=== PATIENT | female | born 1995 | race Caucasian/White ===

== ENCOUNTER → 2017-04-21 | Outpatient (CLI) | payer SELFPAY ==
[~2017-04-21] MED LIST: CEPH500C PO; HYDR-2856 PO; NORG1TAB15 PO
--- NOTE | 2017-04-22 23:14 | Diagnostic Imaging Report ---
PROCEDURE: US OB SINGLE FETUS <14 WKS. TECHNIQUE: Multiple real-time grayscale images were obtained over the gravid uterus in various projections. INDICATION: Vaginal bleeding, . Gestational age of 9 weeks 0 days by last menstrual period. COMPARISON: None. FINDINGS: There is a single live intrauterine gestation, with a heart rate of 172 bpm. A small subchorionic hemorrhage is seen, which measures approximately 20% of the gestational sac circumference, measuring 2.3 x 0.9 x 0.7 cm. The ovaries are not well seen due to bowel gas. The remainder of the uterus is unremarkable. The pole measures 1.85 cm, compatible with 8 weeks and 3 days gestation. The yolk sac is visible. IMPRESSION: 1. Single live intrauterine gestation with a heart rate of 172 bpm, measuring 8 weeks and 3 days. 2. Small subchorionic hemorrhage encompassing approximately 20% of the gestational sac circumference. Dictated by: Dictated on workstation # [id number]
== END ==
LOC: RAD 16:06
PROVIDERS: ATTEND Family Medicine
DX: O20.8 Other hemorrhage in early pregnancy (principal); Z3A.08 8 weeks gestation of pregnancy
CPT/HCPCS: 76801

== ENCOUNTER → 2017-05-25 | Outpatient (CLI) | payer MEDICAID ==
--- NOTE | 2017-05-25 15:07 | Diagnostic Imaging Report ---
PROCEDURE: US OB SINGLE FETUS <14 WKS. TECHNIQUE: Multiple real-time grayscale images were obtained over the gravid uterus in various projections. INDICATION: Bleeding. FINDINGS: The previous OB ultrasound exam performed on 04/21/2017 noted a single live fetus of approximately 8 weeks 3 days gestation, +/-1 week. On this exam, the fetus is again identified. heart motion was noted, and a rate of 155 BPM was recorded. The fetus is in variable presentation. There are no obvious abnormalities identified. The growth parameters have progressed as expected since the prior exam. The amniotic fluid volume is within normal limits. The placenta is anterior and low lying. The previous exam suggested that there was a small subchorionic hemorrhage. That finding is difficult to appreciate on this study. There is no pelvic mass or free fluid collection noted. The ovaries were not visualized. IMPRESSION: 1. There is a single live intrauterine of approximately 13 weeks 2 days gestation, +/-1 week. The EDC remains November 28, 2017. 2. There were no obvious abnormalities identified. If a more sensitive evaluation of the anatomy is desired, then a followup ultrasound exam in 6-8 weeks would be recommended. 3. The small subchronic hemorrhage seen previously is not visualized on this study. Dictated by: Dictated on workstation # [id number]
== END ==
LOC: RAD 14:28
PROVIDERS: ATTEND Family Medicine
DX: O46.91 Antepartum hemorrhage, unspecified, first trimester (principal); Z3A.13 13 weeks gestation of pregnancy
CPT/HCPCS: 76801

== ENCOUNTER → 2017-07-04 | Outpatient (CLI) | payer MEDICAID ==
[~2017-07-04] MED LIST changes: +ACHD5005 PO; +IBUP-1780 PO
--- NOTE | 2017-07-04 13:13 | Diagnostic Imaging Report ---
INDICATION: survey. TECHNIQUE: Multiple real-time grayscale images were obtained over the gravid uterus. COMPARISON: 05/25/2017. FINDINGS: There is an intrauterine fetus in a breech presentation. The placenta is anterior. Amniotic fluid volume appears diminished. No heart tones are identified consistent with intrauterine demise. Biparietal 3.07 cm, age 15 weeks 5 days. Head circumference 13.82 cm, age 17 weeks 2 days. Abdominal circumference 9.40 cm, age 15 weeks 4 days. Femur length 2.54 cm, age 17 weeks 5 days. Sonographic estimate age: 16 weeks 4 days. Sonographic estimated date of delivery: 11-28-17. Estimated Weight: 164 gm (+/- 24 gm). LMP percentile: 2%. heart rate: absent beats per minute. number: 1 of 1. IMPRESSION: Findings consistent with approximately 16-17 week demise. Dictated by: Dictated on workstation # [id number]
== END ==
LOC: RAD 10:15
PROVIDERS: ATTEND Family Medicine
DX: Z36.89 Encounter for other specified antenatal screening (principal); Z3A.16 16 weeks gestation of pregnancy
CPT/HCPCS: 76805

== ENCOUNTER 2017-07-05 07:12 | Day surgery (SDC) | payer MEDICAID ==
[~2017-07-05] VITALS: Ht 172.7 cm; Wt 66.2 kg
[2017-07-05] VITALS (45 sets, daily range): BP systolic 93–149; BP diastolic 51–108
[~2017-07-05 07:12] MED LIST changes: -ACHD5005 PO; -IBUP-1780 PO
[2017-07-05 08:55] LABS: BASOPHILS % (AUTO) 0 % (0-10); EOSINOPHILS # (AUTO) 0.2 10^3/uL (0.0-0.3); EOSINOPHILS % (AUTO) 1 % (0-10); HEMATOCRIT 39 % (35-52); HEMOGLOBIN 13.2 G/DL (11.5-16.0); LYMPHOCYTES # (AUTO) 3.2 X 10^3 (1.0-4.0); LYMPHOCYTES % (AUTO) 23 % (12-44); MEAN CORPUSCULAR HEMOGLOBIN 30 PG (25-34); MEAN CORPUSCULAR HGB CONC 34 G/DL (32-36); MEAN CORPUSCULAR VOLUME 89 FL (80-99); MEAN PLATELET VOLUME 9.3 FL (7.4-10.4); MONOCYTES # (AUTO) 0.9 X 10^3 (0.0-1.0); MONOCYTES % (AUTO) 7 % (0-12); NEUTROPHILS # (AUTO) 9.6 X 10^3 (1.8-7.8); NEUTROPHILS % (AUTO) 69 % (42-75); PLATELET COUNT 283 10^3/uL (130-400); RED BLOOD COUNT 4.36 10^6/uL (4.35-5.85); RED CELL DISTRIBUTION WIDTH 13.8 % (10.0-14.5); WHITE BLOOD COUNT 13.9 10^3/uL (4.3-11.0)
[2017-07-05] MEDS: D5 LR IV SOLUTION 1,000 ML IV SCH ×2 (08:59→17:00)
[2017-07-05] MEDS ORDERED: fentaNYL INJECTION 100 MCG/2 ML AMP IVP PRN (09:00)
[2017-07-05] MEDS: IBUPROFEN 800 MG (MOTRIN) TAB PO SCH ×2 (09:00→23:46)
[2017-07-05] MEDS: MISOPROSTOL 200 MCG (CYTOTEC) TABLET PV SCH ×3 (09:00→15:18)
[2017-07-05 09:34] LABS: AMPHETAMINE SCREEN, URINE NEGATIVE (NEGATIVE); BARBITURATE SCREEN URINE NEGATIVE (NEGATIVE); BENZODIAZEPINES SCREEN URINE POSITIVE (NEGATIVE); CANNABINOID SCREEN, URINE POSITIVE (NEGATIVE); COCAINE SCREEN URINE NEGATIVE (NEGATIVE); METHADONE STAT NEGATIVE (NEGATIVE); METHAMPHETAMINE SCREEN URINE S NEGATIVE (NEGATIVE); OPIATE SCREEN URINE POSITIVE (NEGATIVE); OXYCODONE STAT NEGATIVE (NEGATIVE); PROPOXYPHENE STAT NEGATIVE (NEGATIVE); TRICYCLIC ANTIDEPRESSANTS SCRE NEGATIVE (NEGATIVE)
[2017-07-05] MEDS ORDERED: fentaNYL INJECTION 100 MCG/2 ML AMP ONE (09:41)
[2017-07-05] MEDS ORDERED: BUPIVACAINE 0.25% 30 ML (SENSORCAINE) VIAL ONE (09:41)
[2017-07-05] MEDS ORDERED: SUFENTA 0.6MCG/ML BUPIVA 0.125 100 ML ONE (09:42)
--- NOTE | 2017-07-05 09:59 | History & Physical-OB ---
OB - Chief Complaint & HPI Date/Time Date of Admission: Date of Admission: Jul 05, 2017 at 07:12 Chief Complaint/History Gestational Age in Weeks: 19 Allergies and Home Medications Allergies Coded Allergies: clonidine (Verified Allergy, Intermediate, 02/16/14) hypotension amoxicillin (Verified Allergy, Unknown, RASH, 07/05/17) Home Medications Cephalexin Monohydrate 500 Mg Capsule, 2 EACH PO BID for 7 Days, Ref 0 Prescribed by: RUKHSANA DUMONT on 02/16/142152 Hydroxyzine Hcl 25 Mg Tablet, 25 MG PO PRN, (Reported) Norgestimate-Ethinyl Estradiol 1 Each Tablet, 1 TAB PO DAILY, #28 (Reported) OB - History Delivery History Hx Blood Disorders: No Social History/Family History Recent Infectious Disease Expo: No OB - Admission Exam Labs Laboratory Tests Test 07/05/17 07:30 07/05/17 08:15 Range/Units Urine Opiates Screen POSITIVE H NEGATIVE Urine Oxycodone Screen NEGATIVE NEGATIVE Urine Methadone Screen NEGATIVE NEGATIVE Urine Propoxyphene Screen NEGATIVE NEGATIVE Urine Barbiturates Screen NEGATIVE NEGATIVE Ur Tricyclic Antidepressants Screen NEGATIVE NEGATIVE Urine Phencyclidine Screen NEGATIVE NEGATIVE Urine Amphetamines Screen NEGATIVE NEGATIVE Urine Methamphetamines Screen NEGATIVE NEGATIVE Urine Benzodiazepines Screen POSITIVE H NEGATIVE Urine Cocaine Screen NEGATIVE NEGATIVE Urine Cannabinoids Screen POSITIVE H NEGATIVE White Blood Count 13.9 H 4.3-11.0 10^3/uL Red Blood Count 4.36 4.35-5.85 10^6/uL Hemoglobin 13.2 11.5-16.0 G/DL Hematocrit 39 35-52 % Mean Corpuscular Volume 89 80-99 FL Mean Corpuscular Hemoglobin 30 25-34 PG Mean Corpuscular Hemoglobin Concent 34 32-36 G/DL Red Cell Distribution Width 13.8 10.0-14.5 % Platelet Count 283 130-400 10^3/uL Mean Platelet Volume 9.3 7.4-10.4 FL Neutrophils (%) (Auto) 69 42-75 % Lymphocytes (%) (Auto) 23 12-44 % Monocytes (%) (Auto) 7 0-12 % Eosinophils (%) (Auto) 1 0-10 % Basophils (%) (Auto) 0 0-10 % Neutrophils # (Auto) 9.6 H 1.8-7.8 X 10^3 Lymphocytes # (Auto) 3.2 1.0-4.0 X 10^3 Monocytes # (Auto) 0.9 0.0-1.0 X 10^3 Eosinophils # (Auto) 0.2 0.0-0.3 10^3/uL Basophils # (Auto) 0.0 0.0-0.1 10^3/uL EDGARDO PHAM MD Jul 05, 2017 09:59
[2017-07-05] MEDS ORDERED: INFLUENZA TRIvalent 2017-2018 0.5 ML/45 MCG SYR IM ONE (12:30)
[2017-07-05] MEDS ORDERED: LACTATED RINGERS 1,000 ML IV ONE (12:41)
[2017-07-05] MEDS ORDERED: diphenhydrAMINE 50 MG/ML INJ (BENADRYL) IV PRN (12:45)
[2017-07-05] MEDS ORDERED: NALOXONE 0.4 MG/ML 1 ML (NARCAN) VIAL IV PRN (12:45)
[2017-07-05] MEDS ORDERED: CATHETER FLUSH 10 ML SYR IV PRN (12:45)
[2017-07-05] MEDS ORDERED: ONDANSETRON 4 MG/2 ML (SDV) Z0FRAN IV PRN (12:45)
[2017-07-05] MEDS ORDERED: EPIDURAL (SUFENTA 0.6MCG/ML BUPIVA 0.125%) 100 ML BAG EPI SCH (12:45)
[2017-07-05] MEDS ORDERED: hydrOXYzine (VISTARIL) 25 MG CAP PO NR (14:15)
[2017-07-05] MEDS ORDERED: ERTAPENEM (NON-FORMULARY) 1,000 MG in NS (IVPB) 50 ML IV SCH (16:30)
[2017-07-05] MEDS ORDERED: ACETAMINOPHEN 500 MG TAB (TYLENOL) PO PRN (16:45)
[2017-07-05] MEDS ORDERED: OXYTOCIN/NORMAL SALINE 500 ML IV ONE (17:24)
[2017-07-05] MEDS ORDERED: KETOROLAC 30 MG/ML VIAL IVP ONE (17:30)
--- NOTE | 2017-07-05 19:04 | OB Labor & Delivery Record ---
Vag Delivery Note Vag Delivery Note Date of Delivery: 07/05/17 Preoperative Diagnosis: Ivone Cooper is a 21 /Para 1 / 0, Gestational Age 19 wks with an IUFD Postoperative Diagnosis: Same Surgeon: NTIIN BARCENAS Armhole Sewer: none Anesthesia: Epidural Delivery Type: Spontaneous Vaginal Delivery Findings: Nonviable male , IUFD, weight 310 grams/11 oz Lacerations: None Intact placenta with 3 vessel cord. No nuchal cord, body cord or shoulder dystocia Placenta inspected and appears to have an area of abruption where placenta had been detached from uterine wall; several blood clots were also noted to deliver with fetus. Estimated Blood Loss: 150 ml Complications: None Condition: Stable Description of Procedure: The patient is a 21 yr old who presented IUFD for induction of labor. She was admitted and informed consent was obtained. Her labor course was remarkable for maternal fever, Tmax was 101.8 -- blood cultures were obtained and she was started on Ertapenem, as the hospital does not have Cefoxitan or Cefotetan available and patient is allergic to amoxicillin and therefore not a candidate for traditional ampicillin and gentamycin therapy, for potential chorioamnionitis. The patient reported vaginal pressure, and she was found to be complete with bulging membranes. She was then set up for delivery. Amniotic sac was punctured and bloody amniotic fluid was obtained. Fetus was rapidly delivered in vertex presentation with a large blood clot noted with delivery. Fetus does appear somewhat edematous, although difficult to determine. No obvious anomalies other than some edema noted. Fetus placed on maternal chest as requested and cord double clamped and cut by father. Cord friable and some tearing of cord with gentle traction. Placenta delivered intact, and noted to have at least ~1/3 area of abruption. Cultures of both maternal and side of membranes were obtained and sent to lab. Placental section was obtained for cytogenetic studies, and will be held pending patient decision on whether or not she would like these studies. Placenta to pathology. Fetus weighed, measured, wrapped and handed to parents for holding. Given slightly edematous appearance of fetus, and evidence of abruption from a clinical standpoint, will have blood drawn in AM for typical IUFD lab studies, including TSH, CMV Titers, Parvovirus antibody, Lupus anticoagulant (patient's mother has lupus and a long history of loss) and anticardiolipin antibody, Factor V Leiden mutation, and CBC and CMP. It was discussed extensively with patient, significant other and their family members that we cannot always determine a cause of stillbirth, and that we will send these studies, but that results will likely not be available until after patient is discharged from the hospital for many of them, and Dr. Lewis will get results and follow up with her in the office on anything not resulted before she is discharged. Patient did admit to frequent THC use, which was positive on admission UDS; UDS was positive for benzos and opiates as well, which patient did not state she takes. Patient in stable condition in recovery. Vitals - Labs Vital Signs - I&O Vital Signs Date Time Temp Pulse Resp B/P (MAP) Pulse Ox O2 Delivery O2 Flow Rate FiO2 07/05/17 12:02 100.7 97 129/71 (90) 100 Room Air 07/05/17 11:47 96 124/73 (90) 100 Room Air 07/05/17 11:32 104 125/77 (93) 100 Room Air 07/05/17 11:17 98 118/74 (89) 100 Room Air 07/05/17 11:02 101 121/66 (84) 100 Room Air 07/05/17 10:47 104 18 124/77 (93) 100 Room Air 07/05/17 10:29 104 18 137/63 (87) 100 Room Air 07/05/17 10:23 109 18 140/63 (88) 100 Room Air 07/05/17 10:19 101 18 131/60 (83) 100 Room Air 07/05/17 10:07 99 18 125/67 (86) 100 Room Air 07/05/17 10:05 100 18 125/64 (84) 100 Room Air 07/05/17 10:01 97 18 131/71 (91) 100 Room Air 07/05/17 09:58 96 18 131/62 (85) 100 Room Air 07/05/17 09:55 98.7 110 18 145/69 (94) Room Air 07/05/17 09:53 109 18 149/60 (89) 97 Room Air Labs Laboratory Tests 07/05/17 07:30: Urine Opiates Screen POSITIVEH, Urine Oxycodone Screen NEGATIVE, Urine Methadone Screen NEGATIVE, Urine Propoxyphene Screen NEGATIVE, Urine Barbiturates Screen NEGATIVE, Ur Tricyclic Antidepressants Screen NEGATIVE, Urine Phencyclidine Screen NEGATIVE, Urine Amphetamines Screen NEGATIVE, Urine Methamphetamines Screen NEGATIVE, Urine Benzodiazepines Screen POSITIVEH, Urine Cocaine Screen NEGATIVE, Urine Cannabinoids Screen POSITIVEH 07/05/17 08:15: White Blood Count 13.9H, Red Blood Count 4.36, Hemoglobin 13.2, Hematocrit 39, Mean Corpuscular Volume 89, Mean Corpuscular Hemoglobin 30, Mean Corpuscular Hemoglobin Concent 34, Red Cell Distribution Width 13.8, Platelet Count 283, Mean Platelet Volume 9.3, Neutrophils (%) (Auto) 69, Lymphocytes (%) (Auto) 23, Monocytes (%) (Auto) 7, Eosinophils (%) (Auto) 1, Basophils (%) (Auto) 0, Neutrophils # (Auto) 9.6H, Lymphocytes # (Auto) 3.2, Monocytes # (Auto) 0.9, Eosinophils # (Auto) 0.2, Basophils # (Auto) 0.0 NITIN BARCENAS DO Jul 05, 2017 19:04
--- NOTE | 2017-07-05 19:05 | OB Labor & Delivery Record ---
L&D History Date of Service Date of Service: Jul 05, 2017 History Expected Date of Delivery: Nov 24, 2017 Gestational Age in Weeks: 19 Hx : 1 Hx Para: 0 Complications Events: Routine care IUFD identified at 19 4/7 wks gestation when patient went for routine anatomy scan. Operative Indications (Cesarea: N/A-Vaginal Delivery Intrapartal Events: Febrile (Tmax 101.8) L&D Stage1 Stage One Onset of Labor - Date: Jul 05, 2017 Onset of Labor - Time: 09:00 Duration - Stage I: 8 hr 5 min Monitors and Tracing Monitor Mode: None Presentation: Samy Breech Vital Signs VS - Last 72 Hours, by Label 07/05/17 07/05/17 07/05/17 07/05/17 09:53 09:55 09:58 10:01 Temp 98.7 Pulse 109 110 96 97 Resp 18 18 18 18 B/P (MAP) 149/60 (89) 145/69 (94) 131/62 (85) 131/71 (91) Pulse Ox 97 100 100 O2 Delivery Room Air Room Air Room Air Room Air 07/05/17 07/05/17 07/05/17 07/05/17 10:05 10:07 10:19 10:23 Pulse 100 99 101 109 Resp 18 18 18 18 B/P (MAP) 125/64 (84) 125/67 (86) 131/60 (83) 140/63 (88) Pulse Ox 100 100 100 100 O2 Delivery Room Air Room Air Room Air Room Air 07/05/17 07/05/17 07/05/17 07/05/17 10:29 10:47 11:02 11:17 Pulse 104 104 101 98 Resp 18 18 B/P (MAP) 137/63 (87) 124/77 (93) 121/66 (84) 118/74 (89) Pulse Ox 100 100 100 100 O2 Delivery Room Air Room Air Room Air Room Air 07/05/17 07/05/17 07/05/17 11:32 11:47 12:02 Temp 100.7 Pulse 104 96 97 B/P (MAP) 125/77 (93) 124/73 (90) 129/71 (90) Pulse Ox 100 100 100 O2 Delivery Room Air Room Air Room Air Rupture of Membranes Spontaneous Ruture of Membrane: No Amniotic Membrane Rupture Time: 17:47 Amniotic Membrane Fluid Desc.: Bloody Vaginal Bleeding Description: Normal Show Induction/Anesthesia Epidural Cath Placement - Time: 1001 L&D Stage2 Stage Two Stage II Date: Jul 05, 2017 Stage II Time: 17:05 Stage II Duration: 44 min Monitors and Tracing Monitor Mode: None Presentation: Samy Breech Delivery Type Infant Delivery Method: Spontaneous Vaginal Episiotomy/Perineal Laceration Laceraction(s)/Extensions: No Condition of Delivery Delivery Date & Time: 07/05/17 at 1749 1 minute Comment: 0 5 minute Comment: 0 Condition of Condition of Infant: Stillborn Fetus stillborn, appears mildly edematous but otherwise no obvious abnormalities L&D Stage3 Stage Three Stage III Date: Jul 05, 2017 Stage III Time: 18:00 Stage III Duration: 11 min Pictocin Pitocin Administration Comment: Pitocin at bolus rate Placenta Delivery Placenta Delivery: Spontaneous Delivery Summary Summary Total Labor Time 9 hours Estimated blood loss (mL): 100 Attending at delivery: Franklin Barcenas Condition of Delivery Examined: Uterus Explored Post Hemorrhage: No Condition of Mother Stable Condition of Infant (s) Stillborn NITIN BARCENAS DO Jul 05, 2017 19:05
[2017-07-05] MEDS: MEROPENEM 500 MG in NS (IVPB) 100 ML IV SCH (19:16)
[2017-07-05] MEDS ORDERED: LORazepam 0.5 MG (ATIVAN) TABLET PO PRN ×2 (19:45)
[2017-07-05] MEDS: HYDROcodone/APAP 5 MG/325 MG (LORTAB) TAB PO PRN (21:45)
[2017-07-06] MEDS: MEROPENEM 500 MG in NS (IVPB) 100 ML IV SCH ×3 (01:07→12:00)
[2017-07-06 05:45] LABS: BASOPHILS % (AUTO) 0 % (0-10); EOSINOPHILS # (AUTO) 0.3 10^3/uL (0.0-0.3); EOSINOPHILS % (AUTO) 2 % (0-10); HEMATOCRIT 35 % (35-52); HEMOGLOBIN 12.1 G/DL (11.5-16.0); LYMPHOCYTES # (AUTO) 3.6 X 10^3 (1.0-4.0); LYMPHOCYTES % (AUTO) 29 % (12-44); MEAN CORPUSCULAR HEMOGLOBIN 30 PG (25-34); MEAN CORPUSCULAR HGB CONC 34 G/DL (32-36); MEAN CORPUSCULAR VOLUME 89 FL (80-99); MEAN PLATELET VOLUME 9.1 FL (7.4-10.4); MONOCYTES # (AUTO) 0.8 X 10^3 (0.0-1.0); MONOCYTES % (AUTO) 7 % (0-12); NEUTROPHILS # (AUTO) 7.5 X 10^3 (1.8-7.8); NEUTROPHILS % (AUTO) 62 % (42-75); PLATELET COUNT 244 10^3/uL (130-400); RED BLOOD COUNT 3.98 10^6/uL (4.35-5.85); RED CELL DISTRIBUTION WIDTH 13.5 % (10.0-14.5); WHITE BLOOD COUNT 12.2 10^3/uL (4.3-11.0)
[2017-07-06] MEDS: HYDROcodone/APAP 5 MG/325 MG (LORTAB) TAB PO PRN ×3 (05:45→17:13)
[2017-07-06 05:46] VITALS: BP 108/66
[2017-07-06 06:02] LABS: ALANINE AMINOTRANSFERASE 14 U/L (0-55); ALBUMIN 3.1 GM/DL (3.2-4.5); ALKALINE PHOSPHATASE 50 U/L (40-136); BILIRUBIN,TOTAL 0.2 MG/DL (0.1-1.0); BUN/CREATININE RATIO 11; CALCIUM 8.3 MG/DL (8.5-10.1); CARBON DIOXIDE 19 MMOL/L (21-32); CHLORIDE 109 MMOL/L (98-107); CREATININE SERUM 0.54 MG/DL (0.60-1.30); GFR ESTIMATED > 60; GLUCOSE 85 MG/DL (70-105); POTASSIUM 3.4 MMOL/L (3.6-5.0); SODIUM 138 MMOL/L (135-145); TOTAL PROTEIN 5.7 GM/DL (6.4-8.2)
[2017-07-06] MEDS: IBUPROFEN 800 MG (MOTRIN) TAB PO SCH ×3 (06:17→18:33)
--- NOTE | 2017-07-06 08:46 | Progress Note (SOAP) ---
Subjective Subjective/Events-last exam Afebrile since delivery. She reports bleeding has decreased significantly. Still having a fair amount of abdominal and back pain. No dizziness or shortness of breath. Review of Systems Date Seen by Provider: Jul 06, 2017 Time Seen by Provider: 08:15 Objective Exam Last Set of Vital Signs Vital Signs Date Time Temp Pulse Resp B/P (MAP) Pulse Ox O2 Delivery O2 Flow Rate FiO2 07/06/17 05:46 97.8 77 108/66 (80) Room Air 07/05/17 18:17 18 07/05/17 17:32 100 Capillary Refill : I&O Intake and Output 07/06/17 00:00 Intake Total 1000 ml Output Total 100 ml Balance 900 ml Intake IV Total 1000 ml Output Post Void Residual 100 ml Daily Weight Change No General: Alert, No Acute Distress Lungs: Clear to Auscultation, Normal Air Movement Heart: Regular Rate, No Murmurs Abdomen: Other (fundus appropriately ttp) Psych/Mental Status: Mental Status NL, Mood NL Results/Procedures Lab Laboratory Tests 07/06/17 05:05: White Blood Count 12.2H, Red Blood Count 3.98L, Hemoglobin 12.1, Hematocrit 35, Mean Corpuscular Volume 89, Mean Corpuscular Hemoglobin 30, Mean Corpuscular Hemoglobin Concent 34, Red Cell Distribution Width 13.5, Platelet Count 244, Mean Platelet Volume 9.1, Neutrophils (%) (Auto) 62, Lymphocytes (%) (Auto) 29, Monocytes (%) (Auto) 7, Eosinophils (%) (Auto) 2, Basophils (%) (Auto) 0, Neutrophils # (Auto) 7.5, Lymphocytes # (Auto) 3.6, Monocytes # (Auto) 0.8, Eosinophils # (Auto) 0.3, Basophils # (Auto) 0.0, Sodium Level 138, Potassium Level 3.4L, Chloride Level 109H, Carbon Dioxide Level 19L, Anion Gap 10, Blood Urea Nitrogen 6L, Creatinine 0.54L, Estimat Glomerular Filtration Rate > 60, BUN /Creatinine Ratio 11, Glucose Level 85, Calcium Level 8.3L, Total Bilirubin 0.2 , Aspartate Amino Transf (AST/SGOT) 18, Alanine Aminotransferase (ALT/SGPT) 14, Alkaline Phosphatase 50, Total Protein 5.7L, Albumin 3.1L, Thyroid Stimulating Hormone (TSH) 6.47H Assessment/Plan Assessment/Plan (1) Chorioamnionitis, delivered, current hospitalization Status: Acute Assessment & Plan: Started meropenem due to allergies, has been afebrile after delivery, will d/c and monitor closely, WBC decreased today. If afebrile and pain minimal, may d/c 24 hours after delivery if patient desires. (2) Status post vaginal delivery Status: Acute Assessment & Plan: Lochia decreasing, no anemia Ibuprofen and hydrocodone/apap prn pain (3) Intrauterine before 20 weeks of gestation Status: Acute Assessment & Plan: TSH slightly high, fT4 ordered. Remainder of labs pending including lupus anticoagulant testing due to family history. Ivone has decided she does not want to pursue genetic microarray testing. Clinical Quality Measures DVT/VTE Risk/Contraindication: Risk Factor Score Per Nursin RFS Level Per Nursing on Admit: 1=Low/No VTE PPX AYAH SIMS MD Jul 06, 2017 08:46
[2017-07-06] MEDS ORDERED: IBUP-1780 PO (08:48)
[2017-07-06] MEDS ORDERED: ACHD5005 PO (08:48)
[2017-07-06 09:00] VITALS: BP 117/70
[2017-07-06 13:30] VITALS: BP 108/71
--- NOTE | 2017-07-06 14:11 | Anesthesia-Regional Post-Op ---
Regional Patient Condition Mental Status: Alert, Oriented x3 Circulation: Same as Pre-Op Headache: Absent Sensation: Full Recovery Motor Block: Absent Post Op Complications Complications None Follow Up Care/Instructions Patient Instructions None needed. Anesthesia/Patient Condition Patient is doing well, no complaints, stable vital signs, no apparent adverse anesthesia problems. No complications reported per nursing. SILVIA OLIVIER CRNA Jul 06, 2017 14:11
[2017-07-06 17:00] VITALS: BP 109/71
[2017-07-06 19:10] VITALS: BP 109/71
== END 2017-07-06 19:10 | disposition home or self-care (01) ==
LOC: WSo 07:12 → INTOOBSV 07:12 → LDRP 07:12 → UNDOADMOB 07:12 → LDRP 07:12 → WSo 07-06 19:10 → UNDODISOB 07-06 19:10 → EDSTATUS 07-07 13:43
PROVIDERS: ATTEND Family Medicine
DX: O41.1220 Chorioamnionitis, second trimester, not applicable or unspecified (principal); O02.1 Missed abortion; Z3A.19 19 weeks gestation of pregnancy
CPT/HCPCS: 36415; 80053; 80306; 81241; 83036; 84439; 84443; 85025; 85610; 85613; 85705; 85730; 86644; 86645; 86747; 86850; 86900; 86901; 87040; 87070; 87205

== ENCOUNTER → 2017-07-19 | Outpatient (CLI) | payer MEDICAID ==
[~2017-07-19] MED LIST changes: +ACHD5005 PO; +IBUP-1780 PO
--- NOTE | 2017-07-19 14:04 | Diagnostic Imaging Report ---
DATE: 07/19/2017 1:58 PM REASON FOR EXAM: Right upper quadrant abdominal pain. COMPARISON: None. TECHNIQUE: Routine liver/gallbladder ultrasound. 10.9 FINDINGS: The liver is normal in size and shape. The liver echogenicity is within normal limits. There are no focal lesions. No intrahepatic biliary dilatation is present. The common bile duct is not dilated and measures 3 mm. The main portal vein is hepatopedal. There is no evidence of cholelithiasis or gallbladder wall thickening or pericholecystic fluid. Sonographic Salgado's sign is negative. The visualized portions of the head and proximal body of the pancreas are within normal limits. The distal body and tail of the pancreas are not well visualized due to overlying bowel gas. The visualized portions of the IVC and aorta are normal. The right kidney measures approximately 10.9 cm in length and has a normal appearance. IMPRESSION: 1. No cholelithiasis or acute cholecystitis. No liver or gallbladder abnormality detected. Dictated by: Dictated on workstation # [id number]
== END ==
LOC: RAD 10:05
PROVIDERS: ATTEND Family Medicine
DX: R10.11 Right upper quadrant pain (principal)
CPT/HCPCS: 76705

== ENCOUNTER 2018-02-13 12:42 | Emergency (ER) | payer MEDICAID, OTHER ==
[~2018-02-13] VITALS: Ht 172.7 cm; Wt 59.0 kg
--- OUTSIDE RECORDS SUMMARY | 2018-02-13 12:47 | XMS REPORT | Clinical Summary ---
Author Author [facility] Organization [facility] Address Unknown Phone Unavailable Care Team Providers Care Physician In Private Practice Name Role Phone PP Unavailable Allergies Active Allergy Reactions Severity Noted Date Comments Clonidine Other (See Comments) High 10/29/2012 Mother reports this medication causes extreme low blood pressure. Current Medications Prescription Sig. Disp. Refills Start End Date Status Date mirtazapine (REMERON) 7.5 Take 7.5 mg by mouth 10/30/19 Active MG tabletIndications: nightly. Indications: 13 Insomnia Trouble Sleeping Norgestim-Eth Estrad Take 1 tablet by mouth 10/30/19 Active Triphasic (TRI-SPRINTEC nightly. Use home supply 13 PO) desvenlafaxine (PRISTIQ) Take 1 tablet (50 mg 30 tablet 1 11/03/19 Active 50 MG 24 hr tablet total) by mouth nightly. 13 iloperidone 2 MG TABS Take 2 mg by mouth 54 tablet 1 11/03/19 Active nightly. Take for 6 days 13 then increase to 2 tabs orally at bedtime Active Problems Problem Noted Date Mood disorder 10/29/2012 Resolved Problems Problem Noted Date Resolved Date Suicidal ideation 10/31/2012 11/02/2012 Overview: Problem inadvertently resolved earlier today. Reinstituted problem. Suicidal ideation 10/30/2012 10/31/2012 Sleep disturbance 10/30/2012 11/02/2012 Immunizations Name Dates Previously Given Next Due Influenza IIV3 PFree 02/27/2012 Social History Tobacco Use Types Packs/Day Years Used Date Current Every Day Smoker 0.25 Smokeless Tobacco: Never Used Tobacco Cessation: Ready to Quit: No; Counseling Given: Yes Comments: smokes 5 cigarettes per day Alcohol Use Drinks/Week oz/Week Comments Yes a couple of days ago Sex Assigned at Date Recorded Not on file Last Filed Vital Signs Vital Sign Reading Time Taken Blood Pressure 106/72 11/02/2012 8:28 AM CDT Pulse 107 11/02/2012 8:28 AM CDT Temperature 36.6 C (97.9 F) 11/02/2012 8:28 AM CDT Respiratory Rate 20 11/02/2012 8:28 AM CDT Oxygen Saturation - - Inhaled Oxygen - - Concentration Weight 70.3 kg (155 lb) 10/29/2012 4:14 PM CDT Height 172.7 cm (5' 8") 10/29/2012 4:14 PM CDT Body Mass Index 23.57 10/29/2012 4:14 PM CDT Plan of Treatment Health Maintenance Due Date Last Done Comments HPV Vaccines (1 of 3 - 07/31/2007 Female 3-dose series) Varicella Vaccines (1 of 2009 2 - 2-dose adolescent series) MenB Vaccine (Bexsero) (1 2012 of 2) DTaP,Tdap,and Td Vaccines 07/31/2015 (1 - Tdap) CERVICAL CANCER SCREENING 2017 Influenza Vaccine (#1) 2018 02/27/2012 Results Not on filefrom Last 3 Months
--- OUTSIDE RECORDS SUMMARY | 2018-02-13 12:47 | XMS REPORT ---
Author Author RUTH WILLARD Organization [facility] Address [address] [place] [address] Care Team Providers Care Solar Sales Representative Name Role Phone RUTH WILLARD Unavailable PROBLEMS Type Condition ICD9-CM Code PID02-OO Code Onset Dates Condition Status SNOMED Code Problem Cannabis abuse F12.10 Active 89442329 Problem Methamphetamine use disorder, moderate, 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 Active 94917607 Problem Bipolar disorder, unspecified F31.9 Active 00379372 Problem Post-traumatic stress disorder, chronic F43.12 Active 40591571 ALLERGIES Substance Reaction Event Type Date Status Clonidine HCl hypotension Drug Allergy Jan, Active Amoxicillin hives Drug Allergy Jan, Active ENCOUNTERS Encounter Location Date Diagnosis [facility] [address] [place] [address] 37473- 8802 Feb, [facility] [address] [place] [id number] [place] [address] 97625- 4856 Jan, Well woman exam with routine gynecological exam Z01.419 and Screening for STD (sexually transmitted disease) Z11.3 [place] [address] [place] [address] 10600- 7880 Dec, Post-traumatic stress disorder, chronic F43.12 ; Bipolar disorder, unspecified F31.9 ; Cannabis abuse F12.10 and Methamphetamine use disorder, moderate, 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 [facility] [address] [place] [address] 77994- 2519 Nov, Post-traumatic stress disorder, chronic F43.12 ; Bipolar disorder, unspecified F31.9 ; Cannabis abuse F12.10 and Methamphetamine use disorder, moderate, 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 [place] [address] [place] [address] 73125- 5336 Oct, [place] [address] [place] [address] 78529- 1831 18 Oct, 2017 Post-traumatic stress disorder, chronic F43.12 ; Bipolar disorder, unspecified F31.9 ; Cannabis abuse F12.10 and Methamphetamine use disorder, moderate, 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 [place] [address] [id number] [place] [address] 99318- 4560 September, Post-traumatic stress disorder, chronic F43.12 ; Bipolar disorder, unspecified F31.9 ; Cannabis abuse F12.10 and Methamphetamine use disorder, moderate, 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 [place] [address] [id number] [place] [address] 83242- 1545 September, Encounter for IUD removal Z30.432 [place] [address] [address] [id number] [place] [address] 34404- 3514 04 Aug, 2017 Post-traumatic stress disorder, chronic F43.12 ; Bipolar disorder, unspecified F31.9 ; Cannabis abuse F12.10 and Methamphetamine use disorder, moderate, 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 [place] [address] [id number] [place] [address] 99792- 5862 03 Aug, 2017 exam Z39.2 and Encounter for IUD insertion Z30.430 [place] [id number] [place] [address] 90283- 1866 13 Jul, 2017 control counseling Z30.09 and IUFD at less than 20 weeks of gestation O02.1 [place] [address] [address] [id number] [place] [address] 75017- 1700 08 Jul, 2017 Post-traumatic stress disorder, chronic F43.12 ; Bipolar disorder, unspecified F31.9 ; Cannabis abuse F12.10 and Methamphetamine use disorder, moderate, 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 [place] [address] [address] [id number] [place] [address] 38748- 0876 27 Jun, 2017 Bipolar disorder, unspecified F31.9 and Post-traumatic stress disorder, chronic F43.12 [place] [address] [place] [address]- 9075 Jun, [place] [address] [place] [id number] [place] [address] 01131- 7257 Jun, Severe episode of recurrent major depressive disorder, without psychotic features F33.2 ; Endometritis following delivery O86.12 ; Elevated TSH R94.6 ; IUFD at less than 20 weeks of gestation O02.1 ; Right upper quadrant pain R10.11 and Positive urine drug screen R82.5 [place] [id number] [place] [address] 38312- 7599 Jun, IUFD at less than 20 weeks of gestation O02.1 [place] [address] 55230- 4327 Jun, [place] [address] [address] [id number] [place] [address] 39974- 5541 13 Jun, 2017 care, first in second trimester Z34.02 ; RUQ pain R10.11 and 18 weeks gestation of Z3A.18 [place] [address] [id number] [place] [address] 26108- 1972 16 May, 2017 14 weeks gestation of Z3A.14 and care, first in second trimester Z34.02 [place] [address] [id number] [place] [address] 70030- 8816 11 May, 2017 [place] [address] [id number] [place] [address] 56548- 2276 May, Vaginal bleeding in O46.90 [place] [address] [address] [id number] [place] [address] 00077- 7502 Apr, [address] 54331- 8196 Apr, Encounter for supervision of normal first in first trimester Z34.01 ; 10 weeks gestation of Z3A.10 ; Other specified disorders of amniotic fluid and membranes, first trimester, not applicable or unspecified O41.8X10 and Other antepartum hemorrhage, first trimester O46.8X1 [place] [address] [id number] [place] [address] 46415- 1075 Apr, [place] [address] [address] [id number] [place] [address] 89348- 9382 Apr, Threatened miscarriage in early O20.0 [place] [address] [id number] [place] [address] 51827- 5280 Apr, Screening for deficiency anemia Z13.0 [place] [address] [id number] [place] [address] 79529- 2621 Apr, Encounter for supervision of normal first in first trimester Z34.01 [place] [address] [id number] [place] [address] 34467- 6354 Apr, [place] [address] [address] [id number] [place] [address] 39095- 9090 Apr, Encounter for supervision of normal first in first trimester Z34.01 [place] [address] [id number] [place] [address] 96282- 8287 Apr, Encounter for supervision of normal first in first trimester Z34.01 [place] [address] [id number] [place] [address] 96278- 8397 Mar, [place] [address] [address] [id number] [place] [address] 00369- 2760 Mar, Encounter for test, result unknown Z32.00 IMMUNIZATIONS No Known Immunizations SOCIAL HISTORY Never Assessed REASON FOR VISIT Well Woman Exam----DBennettRN, RUQ/pelvic pain during intercourse PLAN OF CARE Activity Details Follow Up 1 Year Reason: Pending Test PAP REFLEX TO HPV IF ASCUS VITAL SIGNS Height 5'7" in 2018-01-24 Weight 131 lbs 2018-01-24 Temperature 98.7 degrees Fahrenheit 2018-01-24 Heart Rate 70 bpm 2018-01-24 Respiratory Rate 20 2018-01-24 BMI 20.52 kg/m2 2018-01-24 Blood pressure systolic 98 mmHg 2018-01-24 Blood pressure diastolic 60 mmHg 2018-01-24 MEDICATIONS Medication Instructions Dosage Frequency Start Date End Date Duration Status BusPIRone HCl 15 MG Orally Three times a day 1 tablet 8h Jul, 30 days Active Vol-Care Rx 1 MG Orally Once a day 1 tablet 24h Apr, 30 day(s) Active Celexa 20 MG Orally Once a day 0.5 tablet every day for one week then take full tablet daily 24h Dec, 30 day(s) Active Lamictal 200 MG Orally Once a day 1 tablet 24h Jul, 30 days Active RESULTS No Results PROCEDURES Procedure Date Ordered Result Body Site No Charge Jan 24, 2018 VENIPUNCT, ROUTINE* Jan 24, 2018 SPECIMEN HANDLING Jan 24, 2018 CULTURE, BACTERIA, OTHER Jan 24, 2018 Bacterial Vaginosis In House Jan 24, 2018 TRICHOMONAS ASSAY W/OPTIC Jan 24, 2018 INSTRUCTIONS MEDICATIONS ADMINISTERED No Known Medications MEDICAL (GENERAL) HISTORY Type Description Date Medical History depression and anxiety Surgical History 5 wisdom teeth removed 2014 Surgical History mole removed preteen Hospitalization History Misscarried 07/02 Hospitalization History multiple inpatient psych treatments teens
--- OUTSIDE RECORDS SUMMARY | 2018-02-13 12:47 | XMS REPORT ---
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 Active 65854162 Problem Bipolar disorder, unspecified F31.9 Active 27144572 Problem Post-traumatic stress disorder, chronic F43.12 Active 65192173 ALLERGIES Substance Reaction Event Type Date Status Clonidine HCl hypotension Drug Allergy Dec, Active Amoxicillin hives Drug Allergy Dec, Active ENCOUNTERS Encounter Location Date Diagnosis [place] [address] [place] [id number] [place] [address] 61776- 4625 Feb, [place] [address] 96904- 4375 Jan, Well woman exam with routine gynecological exam Z01.419 and Screening for STD (sexually transmitted disease) Z11.3 [place] [address] [place] [id number] [place] [address] 49569- 1877 Dec, Post-traumatic stress disorder, chronic F43.12 ; Bipolar disorder, unspecified F31.9 ; Cannabis abuse F12.10 and Methamphetamine use disorder, moderate, 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 [place] [address] [place] [id number] [place] [address] 14589- 2366 Nov, Post-traumatic stress disorder, chronic F43.12 ; Bipolar disorder, unspecified F31.9 ; Cannabis abuse F12.10 and Methamphetamine use disorder, moderate, 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 [place] [address] [place] [id number] [place] [address] 14881- 6670 Oct, [place] [address] [place] [id number] [place] [address] 79193- 3942 18 Oct, 2017 Post-traumatic stress disorder, chronic F43.12 ; Bipolar disorder, unspecified F31.9 ; Cannabis abuse F12.10 and Methamphetamine use disorder, moderate, 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 [place] [address] [place] [id number] [place] [address] 57218- 0627 September, Post-traumatic stress disorder, chronic F43.12 ; Bipolar disorder, unspecified F31.9 ; Cannabis abuse F12.10 and Methamphetamine use disorder, moderate, 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 [place] [address] 59854- 1682 September, Encounter for IUD removal Z30.432 [place] [address] [place] [id number] [place] [address] 77842- 3812 04 Aug, 2017 Post-traumatic stress disorder, chronic F43.12 ; Bipolar disorder, unspecified F31.9 ; Cannabis abuse F12.10 and Methamphetamine use disorder, moderate, 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 [place] [address] [place] [id number] [place] [address] 04133- 6180 03 Aug, 2017 exam Z39.2 and Encounter for IUD insertion Z30.430 [place] [address] [place] [id number] [place] [address] 73466- 0773 13 Jul, 2017 control counseling Z30.09 and IUFD at less than 20 weeks of gestation O02.1 [place] [address] [place] [id number] [place] [address] 56425- 4261 08 Jul, 2017 Post-traumatic stress disorder, chronic F43.12 ; Bipolar disorder, unspecified F31.9 ; Cannabis abuse F12.10 and Methamphetamine use disorder, moderate, 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 [place] [address] [place] [id number] [place] [address] 29893- 8373 27 Jun, 2017 Bipolar disorder, unspecified F31.9 and Post-traumatic stress disorder, chronic F43.12 [place] [address] [place] [id number] [place] [address] 98579- 9295 Jun, [place] [address] 93072- 6465 Jun, Severe episode of recurrent major depressive disorder, without psychotic features F33.2 ; Endometritis following delivery O86.12 ; Elevated TSH R94.6 ; IUFD at less than 20 weeks of gestation O02.1 ; Right upper quadrant pain R10.11 and Positive urine drug screen R82.5 [place] [address] [place] [id number] [place] [address] 74664- 3907 Jun, IUFD at less than 20 weeks of gestation O02.[address] 30837- 9308 Jun, [place] [address] 40719- 2691 13 Jun, 2017 care, first in second trimester Z34.02 ; RUQ pain R10.11 and 18 weeks gestation of Z3A.18 [place] [id number] [place] [address] 72356- 1288 16 May, 2017 14 weeks gestation of Z3A.14 and care, first in second trimester Z34.02 [place] [id number] [place] [address] 27424- 6816 May, [place] [address] [place] [id number] [place] [address] 54783- 4222 May, Vaginal bleeding in O46.90 [place] [address] [place] [id number] [place] [address] 74913- 1273 Apr, [address] 13243- 4329 Apr, Encounter for supervision of normal first in first trimester Z34.01 ; 10 weeks gestation of Z3A.10 ; Other specified disorders of amniotic fluid and membranes, first trimester, not applicable or unspecified O41.8X10 and Other antepartum hemorrhage, first trimester O46.8X1 [place] [address] [place] [id number] [place] [address] 98634- 5830 Apr, [place] [address] [place] [id number] [place] [address] 26419- 0592 Apr, Threatened miscarriage in early O20.0 [place] [address] 04903- 7461 Apr, Screening for deficiency anemia Z13.0 [place] [address] 53296- 1442 Apr, Encounter for supervision of normal first in first trimester Z34.01 [place] [address] 72874- 9750 Apr, [place] [address] 38021- 1042 Apr, Encounter for supervision of normal first in first trimester Z34.01 [place] [address] [place] [id number] [place] [address] 16354- 4327 Apr, Encounter for supervision of normal first in first trimester Z34.01 [place] [address] [place] [id number] [place] [address] 29066- 2354 Mar, [place] [address] [place] [id number] [place] [address] 09966- 3675 Mar, Encounter for test, result unknown Z32.00 IMMUNIZATIONS No Known Immunizations SOCIAL HISTORY Never Assessed REASON FOR VISIT BH f/u and pt wants to discuss about how she has been lactating since last visit JONNATHAN Carver PLAN OF CARE Activity Details Follow Up 6 Weeks Reason: VITAL SIGNS Height 5'7" in 2018-01-11 Weight 131.2 lbs 2018-01-11 Heart Rate 90 bpm 2018-01-11 Respiratory Rate 20 2018-01-11 BMI 20.55 kg/m2 2018-01-11 Blood pressure systolic 116 mmHg 2018-01-11 Blood pressure diastolic 72 mmHg 2018-01-11 MEDICATIONS Medication Instructions Dosage Frequency Start Date End Date Duration Status BusPIRone HCl 15 MG Orally Three times a day 1 tablet 8h Jul, 30 days Active Celexa 20 MG Orally Once a day 0.5 tablet every day for one week then take full tablet daily 24h Dec, 30 day(s) Active Vol-Care Rx 1 MG Orally Once a day 1 tablet 24h Apr, 30 day(s) Active Lamictal 200 MG Orally Once a day 1 tablet 24h Jul, 30 days Active RESULTS No Results PROCEDURES No Known procedures INSTRUCTIONS MEDICATIONS ADMINISTERED No Known Medications MEDICAL (GENERAL) HISTORY Type Description Date Medical History depression and anxiety Surgical History 5 wisdom teeth removed 2014 Surgical History mole removed preteen Hospitalization History Misscarried 07/02 Hospitalization History multiple inpatient psych treatments teens
--- OUTSIDE RECORDS SUMMARY | 2018-02-13 12:48 | XMS REPORT ---
Author Author ANDRE BRENNA Organization [facility] Address [address] [place] [address] Care Team Providers Care Sql Ssrs Ssis Developer Name Role Phone ANDRE BRENNA Unavailable PROBLEMS Type Condition ICD9-CM Code [id number] Code Onset Dates Condition Status SNOMED Code Problem History of methamphetamine use Z87.898 Active 039066408 Problem Cannabis abuse F12.10 Active 52169058 Problem Methamphetamine use disorder, moderate, 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 Active 14889447 Problem IUFD at less than 20 weeks of gestation O02.1 Active 211355539 Problem Episodic cannabis use F12.90 Active 159308437 Problem Bipolar disorder, unspecified F31.9 Active 78566821 Problem Post-traumatic stress disorder, chronic F43.12 Active 05939406 ALLERGIES Substance Reaction Event Type Date Status Clonidine HCl hypotension Drug Allergy Aug, Active Amoxicillin hives Drug Allergy Aug, Active ENCOUNTERS Encounter Location Date Diagnosis [place] [id number] [place] [address] 41797- 4340 Dec, [place] [address] [place] [address] 99819- 5002 Nov, Post-traumatic stress disorder, chronic F43.12 ; Bipolar disorder, unspecified F31.9 ; Cannabis abuse F12.10 and Methamphetamine use disorder, moderate, 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 [place] [address] [address]- 9112 Oct, [place] [address] [place] [id number] [place] [address] 10215- 3629 Oct, Post-traumatic stress disorder, chronic F43.12 ; Bipolar disorder, unspecified F31.9 ; Cannabis abuse F12.10 and Methamphetamine use disorder, moderate, 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 [place] [address] [place] [id number] [place] [address] 93539- 0720 September, Post-traumatic stress disorder, chronic F43.12 ; Bipolar disorder, unspecified F31.9 ; Cannabis abuse F12.10 and Methamphetamine use disorder, moderate, 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 [place] [id number] [place] [address] 21399- 0383 September, Encounter for IUD removal Z30.[address] 59338- 8078 04 Aug, 2017 Post-traumatic stress disorder, chronic F43.12 ; Bipolar disorder, unspecified F31.9 ; Cannabis abuse F12.10 and Methamphetamine use disorder, moderate, 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 [place] [id number] [place] [address] 86195- 5788 03 Aug, 2017 exam Z39.2 and Encounter for IUD insertion Z30.[address] 79323- 3223 13 Jul, 2017 control counseling Z30.09 and IUFD at less than 20 weeks of gestation O02.[address] 80074- 9799 08 Jul, 2017 Post-traumatic stress disorder, chronic F43.12 ; Bipolar disorder, unspecified F31.9 ; Cannabis abuse F12.10 and Methamphetamine use disorder, moderate, 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 [place] [id number] [place] [address] 57039- 9171 Jun, Bipolar disorder, unspecified F31.9 and Post-traumatic stress disorder, chronic F43.[address] 10147- 3016 Jun, [address] 63113- 5449 Jun, Severe episode of recurrent major depressive disorder, without psychotic features F33.2 ; Endometritis following delivery O86.12 ; Elevated TSH R94.6 ; IUFD at less than 20 weeks of gestation O02.1 ; Right upper quadrant pain R10.11 and Positive urine drug screen R82.5 [place] [address] [place] [id number] [place] [address] 42941- 0649 20 Jun, 2017 IUFD at less than 20 weeks of gestation O02.1 [place] [address] [place] [id number] [place] [address] 99144- 4273 20 Jun, 2017 [place] [address] 74825- 6441 13 Jun, 2017 care, first in second trimester Z34.02 ; RUQ pain R10.11 and 18 weeks gestation of Z3A.18 [place] [address] [place] [id number] [place] [address] 80294- 6826 16 May, 2017 14 weeks gestation of Z3A.14 and care, first in second trimester Z34.02 [place] [address] [place] [id number] [place] [address] 79976- 3012 11 May, 2017 [place] [address] 37146- 4791 May, Vaginal bleeding in O46.90 [place] [address] [place] [id number] [place] [address] 46850- 2482 Apr, [place] [address] [place] [id number] [place] [address] 52183- 6755 Apr, Encounter for supervision of normal first in first trimester Z34.01 ; 10 weeks gestation of Z3A.10 ; Other specified disorders of amniotic fluid and membranes, first trimester, not applicable or unspecified O41.8X10 and Other antepartum hemorrhage, first trimester O46.8X1 [place] [address] [place] [id number] [place] [address] 40052- 7078 Apr, [place] [address] [place] [id number] [place] [address] 71695- 7693 Apr, Threatened miscarriage in early O20.0 [facility] [address] [place] [id number] [address]- 6052 Apr, Screening for deficiency anemia Z13.0 [facility] [address] [address]- 6166 Apr, Encounter for supervision of normal first in first trimester Z34.01 [place] [address] [place] [address] 85919- 7061 Apr, [place] [address] [place] [id number] [place] [address] 76604- 6479 Apr, Encounter for supervision of normal first in first trimester Z34.01 [place] [address] [place] [id number] [place] [address] 61086- 4617 Apr, Encounter for supervision of normal first in first trimester Z34.01 [place] [address] [address]- 8644 Mar, [place] [address] [place] [address] 19355- 4402 Mar, Encounter for test, result unknown Z32.00 IMMUNIZATIONS No Known Immunizations SOCIAL HISTORY Never Assessed REASON FOR VISIT [facility] PLAN OF CARE Activity Details Follow Up 2 Months, prn Reason: VITAL SIGNS Height 5'7" in 2017-08-16 Weight 146.9 lbs 2017-08-16 Heart Rate 84 bpm 2017-08-16 Respiratory Rate 20 2017-08-16 BMI 23.01 kg/m2 2017-08-16 Blood pressure systolic 104 mmHg 2017-08-16 Blood pressure diastolic 68 mmHg 2017-08-16 MEDICATIONS Medication Instructions Dosage Frequency Start Date End Date Duration Status Vol-Care Rx 1 MG Orally Once a day 1 tablet 24h Apr, 30 day(s) Active Mirena 20 MCG/24HR Intrauterine Placed 08/15/2017 as directed Aug, Active BusPIRone HCl 5 MG Orally Three times a day 1 tablet 8h Jul, 30 days Active Lamictal 25 MG Orally Once a day 3 tablets 24h Jul, 30 days Active RESULTS No Results PROCEDURES No Known procedures INSTRUCTIONS MEDICATIONS ADMINISTERED No Known Medications MEDICAL (GENERAL) HISTORY Type Description Date Medical History depression and anxiety Surgical History 5 wisdom teeth removed 2014 Surgical History mole removed preteen Hospitalization History Misscarried 07/02 Hospitalization History multiple inpatient psych treatments teens
--- OUTSIDE RECORDS SUMMARY | 2018-02-13 12:48 | XMS REPORT ---
Author Author BRENNA POWELL Organization [facility] Address [address] [place] [address] Care Team Providers Care Registrar Assistant Name Role Phone BRENNA POWELL Unavailable PROBLEMS Type Condition ICD9-CM Code [id number] Code Onset Dates Condition Status SNOMED Code Problem History of methamphetamine use Z87.898 Active 508684661 Problem Cannabis abuse F12.10 Active 10621520 Problem Methamphetamine use disorder, moderate, 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 Active 33520350 Problem IUFD at less than 20 weeks of gestation O02.1 Active 592536861 Problem Episodic cannabis use F12.90 Active 515833360 Problem Bipolar disorder, unspecified F31.9 Active 29720038 Problem Post-traumatic stress disorder, chronic F43.12 Active 30757337 ALLERGIES No Information ENCOUNTERS Encounter Location Date Diagnosis [place] [address] [place] [address] 29060- 8717 Dec, [place] [address] [place] [id number] [place] [address] 08363- 4208 Nov, Post-traumatic stress disorder, chronic F43.12 ; Bipolar disorder, unspecified F31.9 ; Cannabis abuse F12.10 and Methamphetamine use disorder, moderate, 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 [facility] [address] [place] [address] 11040- 5209 Oct, [place] [address] [place] [address] 06735- 1573 Oct, Post-traumatic stress disorder, chronic F43.12 ; Bipolar disorder, unspecified F31.9 ; Cannabis abuse F12.10 and Methamphetamine use disorder, moderate, 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 [place] [address] [place] [address] 11237- 5533 September, Post-traumatic stress disorder, chronic F43.12 ; Bipolar disorder, unspecified F31.9 ; Cannabis abuse F12.10 and Methamphetamine use disorder, moderate, 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 [place] [address] [place] [id number] [place] [address] 26469- 9329 September, Encounter for IUD removal Z30.432 [place] [id number] [place] [address] 33711- 0101 04 Aug, 2017 Post-traumatic stress disorder, chronic F43.12 ; Bipolar disorder, unspecified F31.9 ; Cannabis abuse F12.10 and Methamphetamine use disorder, moderate, 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 [place] [address] 77993- 4822 03 Aug, 2017 exam Z39.2 and Encounter for IUD insertion Z30.[address] 66596- 7614 13 Jul, 2017 control counseling Z30.09 and IUFD at less than 20 weeks of gestation O02.1 [place] [address] [place] [id number] [place] [address] 27019- 3427 Jul, Post-traumatic stress disorder, chronic F43.12 ; Bipolar disorder, unspecified F31.9 ; Cannabis abuse F12.10 and Methamphetamine use disorder, moderate, 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 [place] [address] [place] [id number] [place] [address] 64750- 3461 27 Jun, 2017 Bipolar disorder, unspecified F31.9 and Post-traumatic stress disorder, chronic F43.12 [place] [address] [place] [id number] [place] [address] 17772- 9578 Jun, [address] 24078- 5413 Jun, Severe episode of recurrent major depressive disorder, without psychotic features F33.2 ; Endometritis following delivery O86.12 ; Elevated TSH R94.6 ; IUFD at less than 20 weeks of gestation O02.1 ; Right upper quadrant pain R10.11 and Positive urine drug screen R82.5 [place] [address] [place] [id number] [place] [address] 67640- 1422 20 Jun, 2017 IUFD at less than 20 weeks of gestation O02.1 [place] [address] [place] [id number] [place] [address] 96795- 0280 20 Jun, 2017 [place] [address] 95726- 0912 13 Jun, 2017 care, first in second trimester Z34.02 ; RUQ pain R10.11 and 18 weeks gestation of Z3A.18 [place] [address] [place] [id number] [place] [address] 15973- 3993 16 May, 2017 14 weeks gestation of Z3A.14 and care, first in second trimester Z34.02 [place] [address] [place] [id number] [place] [address] 00433- 0478 11 May, 2017 [place] [address] [place] [id number] [place] [address] 80275- 3504 May, Vaginal bleeding in O46.90 [place] [address] [place] [id number] [place] [address] 00055- 6875 Apr, [place] [address] [place] [id number] [place] [address] 14818- 9849 Apr, Encounter for supervision of normal first in first trimester Z34.01 ; 10 weeks gestation of Z3A.10 ; Other specified disorders of amniotic fluid and membranes, first trimester, not applicable or unspecified O41.8X10 and Other antepartum hemorrhage, first trimester O46.8X1 [place] [address] [place] [id number] [place] [address] 24603- 0812 Apr, [place] [address] [place] [id number] [place] [address] 11113- 8314 Apr, Threatened miscarriage in early O20.0 [place] [address] 17427- 2456 Apr, Screening for deficiency anemia Z13.0 [facility] [address] [place] [id number] [address]- 3546 Apr, Encounter for supervision of normal first in first trimester Z34.01 [facility] [address] [address] 9[address] Apr, [place] [address] [place] [address] [address] 9888 Apr, Encounter for supervision of normal first in first trimester Z34.01 [place] [address] [address]- 5629 Apr, Encounter for supervision of normal first in first trimester Z34.01 [place] [address] [address]- 4127 Mar, [place] [address] [address]- 0734 Mar, Encounter for test, result unknown Z32.00 IMMUNIZATIONS No Known Immunizations SOCIAL HISTORY Never Assessed REASON FOR VISIT f/u PLAN OF CARE Activity Details Follow Up 4 Weeks, prn Reason: VITAL SIGNS Height 5'7" in 2017-09-27 Weight 145.8 lbs 2017-09-27 BMI 22.83 kg/m2 2017-09-27 MEDICATIONS Medication Instructions Dosage Frequency Start Date End Date Duration Status [facility] Rx 1 MG Orally Once a day 1 tablet 24h Apr, 30 day(s) Active Lamictal 100 MG Orally Once a day 1 tablet 24h Jul, 30 days Active BusPIRone HCl 10 MG Orally Three times a day 1 tablet 8h Jul, 30 days Active RESULTS No Results PROCEDURES No Known procedures INSTRUCTIONS MEDICATIONS ADMINISTERED No Known Medications MEDICAL (GENERAL) HISTORY Type Description Date Medical History depression and anxiety Surgical History 5 wisdom teeth removed 2014 Surgical History mole removed preteen Hospitalization History Misscarried 07/02 Hospitalization History multiple inpatient psych treatments teens
--- OUTSIDE RECORDS SUMMARY | 2018-02-13 12:48 | XMS REPORT ---
Author Author BRENNA POWELL Organization [facility] Address [address] [place] [address] Care Team Providers Care Name Role Phone BRENNA POWELL Unavailable PROBLEMS Type Condition ICD9-CM Code [id number] Code Onset Dates Condition Status SNOMED Code Problem History of methamphetamine use Z87.898 Active 335745188 Problem Cannabis abuse F12.10 Active 09150737 Problem Methamphetamine use disorder, moderate, 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 Active 91251952 Problem IUFD at less than 20 weeks of gestation O02.1 Active 721356852 Problem Episodic cannabis use F12.90 Active 918438258 Problem Bipolar disorder, unspecified F31.9 Active 21000283 Problem Post-traumatic stress disorder, chronic F43.12 Active 57224566 ALLERGIES No Information ENCOUNTERS Encounter Location Date Diagnosis [place] [address] [place] [address] 58859- 1778 Dec, [place] [address] [place] [id number] [place] [address] 24437- 7185 Nov, Post-traumatic stress disorder, chronic F43.12 ; Bipolar disorder, unspecified F31.9 ; Cannabis abuse F12.10 and Methamphetamine use disorder, moderate, 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 [facility] [address] [place] [address] 00194- 7994 Oct, [place] [address] [place] [address] 29225- 6990 Oct, Post-traumatic stress disorder, chronic F43.12 ; Bipolar disorder, unspecified F31.9 ; Cannabis abuse F12.10 and Methamphetamine use disorder, moderate, 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 [place] [address] [place] [address] 74173- 9609 September, Post-traumatic stress disorder, chronic F43.12 ; Bipolar disorder, unspecified F31.9 ; Cannabis abuse F12.10 and Methamphetamine use disorder, moderate, 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 [place] [address] [place] [id number] [place] [address] 46986- 8375 September, Encounter for IUD removal Z30.432 [place] [id number] [place] [address] 02899- 2417 04 Aug, 2017 Post-traumatic stress disorder, chronic F43.12 ; Bipolar disorder, unspecified F31.9 ; Cannabis abuse F12.10 and Methamphetamine use disorder, moderate, 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 [place] [address] 80747- 4092 03 Aug, 2017 exam Z39.2 and Encounter for IUD insertion Z30.[address] 23485- 1926 13 Jul, 2017 control counseling Z30.09 and IUFD at less than 20 weeks of gestation O02.1 [place] [address] [place] [id number] [place] [address] 51575- 6888 Jul, Post-traumatic stress disorder, chronic F43.12 ; Bipolar disorder, unspecified F31.9 ; Cannabis abuse F12.10 and Methamphetamine use disorder, moderate, 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 [place] [address] [place] [id number] [place] [address] 90560- 4965 27 Jun, 2017 Bipolar disorder, unspecified F31.9 and Post-traumatic stress disorder, chronic F43.12 [place] [address] [place] [id number] [place] [address] 09160- 1495 Jun, [address] 14651- 1251 Jun, Severe episode of recurrent major depressive disorder, without psychotic features F33.2 ; Endometritis following delivery O86.12 ; Elevated TSH R94.6 ; IUFD at less than 20 weeks of gestation O02.1 ; Right upper quadrant pain R10.11 and Positive urine drug screen R82.5 [place] [address] [place] [id number] [place] [address] 44991- 8150 20 Jun, 2017 IUFD at less than 20 weeks of gestation O02.1 [place] [address] [place] [id number] [place] [address] 39295- 2508 20 Jun, 2017 [place] [address] 53190- 8586 13 Jun, 2017 care, first in second trimester Z34.02 ; RUQ pain R10.11 and 18 weeks gestation of Z3A.18 [place] [address] [place] [id number] [place] [address] 41552- 5411 16 May, 2017 14 weeks gestation of Z3A.14 and care, first in second trimester Z34.02 [place] [address] [place] [id number] [place] [address] 60695- 2906 11 May, 2017 [place] [address] [place] [id number] [place] [address] 11556- 3977 May, Vaginal bleeding in O46.90 [place] [address] [place] [id number] [place] [address] 11699- 1218 Apr, [place] [address] [place] [id number] [place] [address] 45930- 7875 Apr, Encounter for supervision of normal first in first trimester Z34.01 ; 10 weeks gestation of Z3A.10 ; Other specified disorders of amniotic fluid and membranes, first trimester, not applicable or unspecified O41.8X10 and Other antepartum hemorrhage, first trimester O46.8X1 [place] [address] [place] [id number] [place] [address] 27346- 1795 Apr, [place] [address] [place] [id number] [place] [address] 28839- 2346 Apr, Threatened miscarriage in early O20.0 [place] [address] 94077- 9191 Apr, Screening for deficiency anemia Z13.0 [place] [address] [address] Apr, Encounter for supervision of normal first in first trimester Z34.01 [place] [address] [address]- 1952 Apr, [place] [address] [place] [id number] [place] [address] 34244- 7228 Apr, Encounter for supervision of normal first in first trimester Z34.01 [place] [address] [place] [id number] [place] [address] 793869- 5654 Apr, Encounter for supervision of normal first in first trimester Z34.01 [place] [address] [place] [address] 12594- 1515 Mar, [place] [address] [place] [id number] [address]- 6423 Mar, Encounter for test, result unknown Z32.00 IMMUNIZATIONS No Known Immunizations SOCIAL HISTORY Never Assessed REASON FOR VISIT BH f/u [place] PLAN OF CARE Activity Details Follow Up 3 Weeks Reason: VITAL SIGNS Height 5'7" in 2017-10-30 Weight 137 lbs 2017-10-30 Heart Rate 92 bpm 2017-10-30 Respiratory Rate 18 2017-10-30 BMI 21.45 kg/m2 2017-10-30 Blood pressure systolic 108 mmHg 2017-10-30 Blood pressure diastolic 70 mmHg 2017-10-30 MEDICATIONS Medication Instructions Dosage Frequency Start Date End Date Duration Status BusPIRone HCl 15 MG Orally Three times a day 1 tablet 8h Jul, 30 days Active Lamictal 100 MG Orally Once a day 1.5 tabs every day for one week then take 200mg every day 24h Jul, 30 days Active [facility]-Care Rx 1 MG Orally Once a day 1 tablet 24h Apr, 30 day(s) Active RESULTS No Results PROCEDURES No Known procedures INSTRUCTIONS MEDICATIONS ADMINISTERED No Known Medications MEDICAL (GENERAL) HISTORY Type Description Date Medical History depression and anxiety Surgical History 5 wisdom teeth removed 2014 Surgical History mole removed preteen Hospitalization History Misscarried 07/02 Hospitalization History multiple inpatient psych treatments teens
--- OUTSIDE RECORDS SUMMARY | 2018-02-13 12:48 | XMS REPORT ---
Author Author BRENNA POWELL Organization [facility] Address [address] [place] [address] Care Team Providers Care Breaking Machine Operator Name Role Phone BRENNA POWELL Unavailable PROBLEMS Type Condition ICD9-CM Code XRN03-MQ Code Onset Dates Condition Status SNOMED Code Problem History of methamphetamine use Z87.898 Active 673537390 Problem Cannabis abuse F12.10 Active 26158504 Problem Methamphetamine use disorder, moderate, 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 Active 58838746 Problem IUFD at less than 20 weeks of gestation O02.1 Active 954975586 Problem Episodic cannabis use F12.90 Active 991482751 Problem Bipolar disorder, unspecified F31.9 Active 80768247 Problem Post-traumatic stress disorder, chronic F43.12 Active 40689157 ALLERGIES No Information ENCOUNTERS Encounter Location Date Diagnosis [place] [address] [place] [address] 41788- 3499 Dec, [place] [address] [place] [id number] [place] [address] 38645- 7000 Nov, Post-traumatic stress disorder, chronic F43.12 ; Bipolar disorder, unspecified F31.9 ; Cannabis abuse F12.10 and Methamphetamine use disorder, moderate, 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 [facility] [address] [place] [address] 54248- 5489 Oct, [place] [address] [place] [address] 92352- 4861 Oct, Post-traumatic stress disorder, chronic F43.12 ; Bipolar disorder, unspecified F31.9 ; Cannabis abuse F12.10 and Methamphetamine use disorder, moderate, 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 [place] [address] [place] [address] 27179- 7263 September, Post-traumatic stress disorder, chronic F43.12 ; Bipolar disorder, unspecified F31.9 ; Cannabis abuse F12.10 and Methamphetamine use disorder, moderate, 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 [place] [address] [place] [id number] [place] [address] 94192- 9473 September, Encounter for IUD removal Z30.432 [place] [id number] [place] [address] 81725- 5238 04 Aug, 2017 Post-traumatic stress disorder, chronic F43.12 ; Bipolar disorder, unspecified F31.9 ; Cannabis abuse F12.10 and Methamphetamine use disorder, moderate, 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 [place] [address] 63659- 8486 03 Aug, 2017 exam Z39.2 and Encounter for IUD insertion Z30.[address] 36242- 4845 13 Jul, 2017 control counseling Z30.09 and IUFD at less than 20 weeks of gestation O02.1 [place] [address] [place] [id number] [place] [address] 76212- 6448 Jul, Post-traumatic stress disorder, chronic F43.12 ; Bipolar disorder, unspecified F31.9 ; Cannabis abuse F12.10 and Methamphetamine use disorder, moderate, 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 [place] [address] [place] [id number] [place] [address] 73312- 2331 27 Jun, 2017 Bipolar disorder, unspecified F31.9 and Post-traumatic stress disorder, chronic F43.12 [place] [address] [place] [id number] [place] [address] 91618- 2723 Jun, [address] 55112- 5339 Jun, Severe episode of recurrent major depressive disorder, without psychotic features F33.2 ; Endometritis following delivery O86.12 ; Elevated TSH R94.6 ; IUFD at less than 20 weeks of gestation O02.1 ; Right upper quadrant pain R10.11 and Positive urine drug screen R82.5 [place] [address] [place] [id number] [place] [address] 10164- 5600 20 Jun, 2017 IUFD at less than 20 weeks of gestation O02.1 [place] [address] [place] [id number] [place] [address] 33602- 5597 20 Jun, 2017 [place] [address] 28371- 2957 13 Jun, 2017 care, first in second trimester Z34.02 ; RUQ pain R10.11 and 18 weeks gestation of Z3A.18 [place] [address] [place] [id number] [place] [address] 54382- 3355 16 May, 2017 14 weeks gestation of Z3A.14 and care, first in second trimester Z34.02 [place] [address] [place] [id number] [place] [address] 76209- 1406 11 May, 2017 [place] [address] [place] [id number] [place] [address] 55680- 0504 May, Vaginal bleeding in O46.90 [place] [address] [place] [id number] [place] [address] 30597- 2187 Apr, [place] [address] [place] [id number] [place] [address] 49928- 9842 Apr, Encounter for supervision of normal first in first trimester Z34.01 ; 10 weeks gestation of Z3A.10 ; Other specified disorders of amniotic fluid and membranes, first trimester, not applicable or unspecified O41.8X10 and Other antepartum hemorrhage, first trimester O46.8X1 [place] [address] [place] [id number] [place] [address] 65183- 5417 Apr, [place] [address] [place] [id number] [place] [address] 29086- 9573 Apr, Threatened miscarriage in early O20.0 [place] [address] 03003- 6276 Apr, Screening for deficiency anemia Z13.0 [facility] [address] [address]876 Apr, Encounter for supervision of normal first in first trimester Z34.01 [place] [address] [address]- 1930 Apr, [place] [address] [place] [id number] [place] [address] 083335- 0526 Apr, Encounter for supervision of normal first in first trimester Z34.01 [place] [address] [place] [id number] [place] [address] 567413- 3305 Apr, Encounter for supervision of normal first in first trimester Z34.01 [place] [address] [address]- 0114 Mar, [place] [address] [place] [id number] [address]- 7208 Mar, Encounter for test, result unknown Z32.00 IMMUNIZATIONS No Known Immunizations SOCIAL HISTORY Never Assessed REASON FOR VISIT paperwork PLAN OF CARE VITAL SIGNS MEDICATIONS Unknown Medications RESULTS No Results PROCEDURES No Known procedures INSTRUCTIONS MEDICATIONS ADMINISTERED No Known Medications MEDICAL (GENERAL) HISTORY Type Description Date Medical History depression and anxiety Surgical History 5 wisdom teeth removed 2014 Surgical History mole removed preteen Hospitalization History Misscarried 07/02 Hospitalization History multiple inpatient psych treatments teens
--- OUTSIDE RECORDS SUMMARY | 2018-02-13 12:48 | XMS REPORT ---
Author Author BRENNA POWELL Organization [facility] Address [address] [place] [address] Care Team Providers Care Jewel Corner Brushing Machine Operator Name Role Phone BRENNA POWELL Unavailable PROBLEMS Type Condition ICD9-CM Code [id number] Code Onset Dates Condition Status SNOMED Code Problem History of methamphetamine use Z87.898 Active 026705000 Problem Cannabis abuse F12.10 Active 17400915 Problem Methamphetamine use disorder, moderate, 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 Active 71193166 Problem IUFD at less than 20 weeks of gestation O02.1 Active 463029991 Problem Episodic cannabis use F12.90 Active 962039507 Problem Bipolar disorder, unspecified F31.9 Active 58528645 Problem Post-traumatic stress disorder, chronic F43.12 Active 69232795 ALLERGIES No Information ENCOUNTERS Encounter Location Date Diagnosis [place] [id number] [place] [address] 88031- 1479 Feb, [place] [address] [place] [id number] [place] [address] 91384- 2711 Jan, [place] [address] [place] [id number] [place] [address] 73704- 5714 Dec, Post-traumatic stress disorder, chronic F43.12 ; Bipolar disorder, unspecified F31.9 ; Cannabis abuse F12.10 and Methamphetamine use disorder, moderate, 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 [facility] [address] [place] [address] 48654- 0596 Nov, Post-traumatic stress disorder, chronic F43.12 ; Bipolar disorder, unspecified F31.9 ; Cannabis abuse F12.10 and Methamphetamine use disorder, moderate, 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 [place] [address] [place] [address] 88258- 4474 Oct, [place] [address] [place] [address] 83582- 4449 18 Oct, 2017 Post-traumatic stress disorder, chronic F43.12 ; Bipolar disorder, unspecified F31.9 ; Cannabis abuse F12.10 and Methamphetamine use disorder, moderate, 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 [place] [address] [place] [id number] [place] [address] 88963- 6829 September, Post-traumatic stress disorder, chronic F43.12 ; Bipolar disorder, unspecified F31.9 ; Cannabis abuse F12.10 and Methamphetamine use disorder, moderate, 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 [place] [address] 68353- 9466 September, Encounter for IUD removal Z30.432 [place] [address] 28222- 8041 04 Aug, 2017 Post-traumatic stress disorder, chronic F43.12 ; Bipolar disorder, unspecified F31.9 ; Cannabis abuse F12.10 and Methamphetamine use disorder, moderate, 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 [place] [address] [place] [id number] [place] [address] 62291- 3768 03 Aug, 2017 exam Z39.2 and Encounter for IUD insertion Z30.430 [place] [address] [place] [id number] [place] [address] 45837- 3465 13 Jul, 2017 control counseling Z30.09 and IUFD at less than 20 weeks of gestation O02.1 [place] [address] [place] [id number] [place] [address] 70241- 8894 08 Jul, 2017 Post-traumatic stress disorder, chronic F43.12 ; Bipolar disorder, unspecified F31.9 ; Cannabis abuse F12.10 and Methamphetamine use disorder, moderate, 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 [place] [address] [place] [id number] [place] [address] 99382- 3193 27 Jun, 2017 Bipolar disorder, unspecified F31.9 and Post-traumatic stress disorder, chronic F43.12 [place] [address] [place] [address] [place] [address] 8275 Jun, [place] [address] [place] [id number] [place] [address] 00437- 8601 Jun, Severe episode of recurrent major depressive disorder, without psychotic features F33.2 ; Endometritis following delivery O86.12 ; Elevated TSH R94.6 ; IUFD at less than 20 weeks of gestation O02.1 ; Right upper quadrant pain R10.11 and Positive urine drug screen R82.5 [place] [address] [place] [id number] [place] [address] 76615- 8155 Jun, IUFD at less than 20 weeks of gestation O02.1 [place] [address] 03194- 8077 Jun, [place] [address] [place] [id number] [place] [address] 06955- 0127 13 Jun, 2017 care, first in second trimester Z34.02 ; RUQ pain R10.11 and 18 weeks gestation of Z3A.18 [place] [address] [place] [id number] [place] [address] 20311- 1620 16 May, 2017 14 weeks gestation of Z3A.14 and care, first in second trimester Z34.02 [place] [address] [place] [id number] [place] [address] 12444- 9227 11 May, 2017 [place] [address] [place] [id number] [place] [address] 48172- 8139 May, Vaginal bleeding in O46.90 [place] [address] [place] [id number] [place] [address] 18000- 9261 Apr, [place] [id number] [place] [address] 40290- 9168 Apr, Encounter for supervision of normal first in first trimester Z34.01 ; 10 weeks gestation of Z3A.10 ; Other specified disorders of amniotic fluid and membranes, first trimester, not applicable or unspecified O41.8X10 and Other antepartum hemorrhage, first trimester O46.8X1 [place] [address] [place] [id number] [place] [address] 83812- 5205 Apr, [place] [address] [place] [id number] [place] [address] 14882- 3674 Apr, Threatened miscarriage in early O20.0 [place] [address] 65987- 2988 Apr, Screening for deficiency anemia Z13.0 [place] [address] [place] [id number] [place] [address] 14524- 6763 Apr, Encounter for supervision of normal first in first trimester Z34.01 [place] [address] [place] [id number] [place] [address] 47420- 9632 Apr, [place] [address] [place] [id number] [place] [address] 04118- 5689 Apr, Encounter for supervision of normal first in first trimester Z34.01 [place] [address] [place] [id number] [place] [address] 79704- 0207 Apr, Encounter for supervision of normal first in first trimester Z34.01 [place] [address] [place] [id number] [place] [address] 56287- 7560 Mar, [place] [address] [place] [id number] [place] [address] 83500- 7977 Mar, Encounter for test, result unknown Z32.00 IMMUNIZATIONS No Known Immunizations SOCIAL HISTORY Never Assessed REASON FOR VISIT BH f/u [facility] PLAN OF CARE Activity Details Follow Up 2 Months Reason: VITAL SIGNS Height 5'7" in 2017-11-21 Weight 133.9 lbs 2017-11-21 Heart Rate 98 bpm 2017-11-21 Respiratory Rate 18 2017-11-21 BMI 20.97 kg/m2 2017-11-21 Blood pressure systolic 118 mmHg 2017-11-21 Blood pressure diastolic 80 mmHg 2017-11-21 MEDICATIONS Medication Instructions Dosage Frequency Start Date [...]
--- OUTSIDE RECORDS SUMMARY | 2018-02-13 12:48 | XMS REPORT ---
Author Author BETHANY AYAH Organization [facility] [place] Address [address] [place] [address] Care Team Providers Care Peoplesoft Hr Developer Name Role Phone BETHANYJESSICA FINNHANY Unavailable PROBLEMS Type Condition ICD9-CM Code [id number] Code Onset Dates Condition Status SNOMED Code Problem History of methamphetamine use Z87.898 Active 153178458 Problem Cannabis abuse F12.10 Active 11162029 Problem Methamphetamine use disorder, moderate, 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 Active 42607919 Problem IUFD at less than 20 weeks of gestation O02.1 Active 976995113 Problem Episodic cannabis use F12.90 Active 535270453 Problem Bipolar disorder, unspecified F31.9 Active 51236795 Problem Post-traumatic stress disorder, chronic F43.12 Active 42755782 ALLERGIES Substance Reaction Event Type Date Status Clonidine HCl hypotension Drug Allergy September, Active Amoxicillin hives Drug Allergy September, Active ENCOUNTERS Encounter Location Date Diagnosis [place] [address] [place] [address] 84801- 2784 Dec, [place] [address] [place] [address] 48962- 3422 Nov, Post-traumatic stress disorder, chronic F43.12 ; Bipolar disorder, unspecified F31.9 ; Cannabis abuse F12.10 and Methamphetamine use disorder, moderate, 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 [place] [address] [address] 2193 Oct, [place] [address] [place] [id number] [place] [address] 02992- 6444 Oct, Post-traumatic stress disorder, chronic F43.12 ; Bipolar disorder, unspecified F31.9 ; Cannabis abuse F12.10 and Methamphetamine use disorder, moderate, 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 [place] [address] [place] [id number] [place] [address] 83334- 1613 September, Post-traumatic stress disorder, chronic F43.12 ; Bipolar disorder, unspecified F31.9 ; Cannabis abuse F12.10 and Methamphetamine use disorder, moderate, 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 [place] [id number] [place] [address] 17014- 7384 September, Encounter for IUD removal Z30.[address] 84434- 1188 04 Aug, 2017 Post-traumatic stress disorder, chronic F43.12 ; Bipolar disorder, unspecified F31.9 ; Cannabis abuse F12.10 and Methamphetamine use disorder, moderate, 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 [place] [id number] [place] [address] 38718- 4857 03 Aug, 2017 exam Z39.2 and Encounter for IUD insertion Z30.[address] 29197- 5342 13 Jul, 2017 control counseling Z30.09 and IUFD at less than 20 weeks of gestation O02.[address] 28825- 6519 08 Jul, 2017 Post-traumatic stress disorder, chronic F43.12 ; Bipolar disorder, unspecified F31.9 ; Cannabis abuse F12.10 and Methamphetamine use disorder, moderate, 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 [place] [id number] [place] [address] 49954- 3990 Jun, Bipolar disorder, unspecified F31.9 and Post-traumatic stress disorder, chronic F43.[address] 25502- 5385 Jun, [address] 29842- 1628 Jun, Severe episode of recurrent major depressive disorder, without psychotic features F33.2 ; Endometritis following delivery O86.12 ; Elevated TSH R94.6 ; IUFD at less than 20 weeks of gestation O02.1 ; Right upper quadrant pain R10.11 and Positive urine drug screen R82.5 [place] [address] [place] [id number] [place] [address] 72689- 9295 20 Jun, 2017 IUFD at less than 20 weeks of gestation O02.1 [place] [address] [place] [id number] [place] [address] 10189- 8647 20 Jun, 2017 [place] [address] 15514- 8482 13 Jun, 2017 care, first in second trimester Z34.02 ; RUQ pain R10.11 and 18 weeks gestation of Z3A.18 [place] [address] [place] [id number] [place] [address] 90105- 0170 16 May, 2017 14 weeks gestation of Z3A.14 and care, first in second trimester Z34.02 [place] [address] [place] [id number] [place] [address] 82410- 1491 11 May, 2017 [place] [address] 05113- 8813 May, Vaginal bleeding in O46.90 [place] [address] [place] [id number] [place] [address] 96855- 0601 Apr, [place] [address] [place] [id number] [place] [address] 84141- 1843 Apr, Encounter for supervision of normal first in first trimester Z34.01 ; 10 weeks gestation of Z3A.10 ; Other specified disorders of amniotic fluid and membranes, first trimester, not applicable or unspecified O41.8X10 and Other antepartum hemorrhage, first trimester O46.8X1 [place] [address] [place] [id number] [place] [address] 42995- 3800 Apr, [place] [address] [place] [id number] [place] [address] 76399- 8364 Apr, Threatened miscarriage in early O20.0 [facility] [place] [address] [place] [id number] [address]- 9970 Apr, Screening for deficiency anemia Z13.0 [place] [address] [place] [address] 14023- 9735 Apr, Encounter for supervision of normal first in first trimester Z34.01 [place] [address] [place] [id number] [place] [address] 12261- 1682 Apr, [place] [address] [place] [id number] [place] [address] 34152- 9805 Apr, Encounter for supervision of normal first in first trimester Z34.01 [place] [address] [place] [id number] [place] [address] 02363- 5941 Apr, Encounter for supervision of normal first in first trimester Z34.01 [place] [address] [place] [id number] [place] [address] 66049- 6020 Mar, [place] [address] [place] [id number] [place] [address] 55518- 7130 Mar, Encounter for test, result unknown Z32.00 IMMUNIZATIONS No Known Immunizations SOCIAL HISTORY Never Assessed REASON FOR VISIT IUD check , patient states she is having back pain cramping and bleeding after insertion date , patient states she would like to remove the IUD and switch to condoms instead -- kadeem don PLAN OF CARE Activity Details Follow Up prn Reason: Future/Pending Procedure IUD REMOVAL VITAL SIGNS Height 5'7" in 2017-09-12 Weight 142.0 lbs 2017-09-12 Temperature 98.0 degrees Fahrenheit 2017-09-12 Heart Rate 72 bpm 2017-09-12 Respiratory Rate 18 2017-09-12 BMI 22.24 kg/m2 2017-09-12 Blood pressure systolic 100 mmHg 2017-09-12 Blood pressure diastolic 68 mmHg 2017-09-12 MEDICATIONS Medication Instructions Dosage Frequency Start Date End Date Duration Status Lamictal 25 MG Orally Once a day 3 tablets 24h Jul, 30 days Active Vol-Care Rx 1 MG Orally Once a day 1 tablet 24h Apr, 30 day(s) Active BusPIRone HCl 5 MG Orally Three times a day 1 tablet 8h Jul, 30 days Active RESULTS No Results PROCEDURES Procedure Date Ordered Result Body Site REMOVE INTRAUTERINE DEVICE September 12, 2017 INSTRUCTIONS MEDICATIONS ADMINISTERED No Known Medications MEDICAL (GENERAL) HISTORY Type Description Date Medical History depression and anxiety Surgical History 5 wisdom teeth removed 2014 Surgical History mole removed preteen Hospitalization History Misscarried 07/02 Hospitalization History multiple inpatient psych treatments teens
--- OUTSIDE RECORDS SUMMARY | 2018-02-13 12:48 | XMS REPORT ---
Author Author AYAH SIMS [facility] Address [address] [place] [address] Care Team Providers Care Industrial Commercial Groundskeeper Name Role Phone AYAH SIMS Unavailable PROBLEMS Type Condition ICD9-CM Code [id number] Code Onset Dates Condition Status SNOMED Code Problem History of methamphetamine use Z87.898 Active 272307244 Problem Cannabis abuse F12.10 Active 67757081 Problem Methamphetamine use disorder, moderate, 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 Active 35201689 Problem IUFD at less than 20 weeks of gestation O02.1 Active 909781461 Problem Episodic cannabis use F12.90 Active 424552959 Problem Bipolar disorder, unspecified F31.9 Active 59187663 Problem Post-traumatic stress disorder, chronic F43.12 Active 72695962 ALLERGIES No Information ENCOUNTERS Encounter Location Date Diagnosis [place] [address] [place] [address] 55732- 7007 Dec, [place] [address] [place] [id number] [place] [address] 43177- 7523 Nov, Post-traumatic stress disorder, chronic F43.12 ; Bipolar disorder, unspecified F31.9 ; Cannabis abuse F12.10 and Methamphetamine use disorder, moderate, 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 [place] [address] [place] [address] 96064- 1444 Oct, [place] [address] [place] [address] 05504- 4716 Oct, Post-traumatic stress disorder, chronic F43.12 ; Bipolar disorder, unspecified F31.9 ; Cannabis abuse F12.10 and Methamphetamine use disorder, moderate, 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 [place] [address] [place] [address] 40764- 3129 September, Post-traumatic stress disorder, chronic F43.12 ; Bipolar disorder, unspecified F31.9 ; Cannabis abuse F12.10 and Methamphetamine use disorder, moderate, 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 [place] [address] [place] [id number] [place] [address] 99426- 7641 September, Encounter for IUD removal Z30.432 [place] [id number] [place] [address] 05217- 5217 04 Aug, 2017 Post-traumatic stress disorder, chronic F43.12 ; Bipolar disorder, unspecified F31.9 ; Cannabis abuse F12.10 and Methamphetamine use disorder, moderate, 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 [place] [address] 12515- 3595 03 Aug, 2017 exam Z39.2 and Encounter for IUD insertion Z30.[address] 35196- 5505 13 Jul, 2017 control counseling Z30.09 and IUFD at less than 20 weeks of gestation O02.1 [place] [address] [place] [id number] [place] [address] 63106- 5425 Jul, Post-traumatic stress disorder, chronic F43.12 ; Bipolar disorder, unspecified F31.9 ; Cannabis abuse F12.10 and Methamphetamine use disorder, moderate, 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 [place] [address] [place] [id number] [place] [address] 68356- 9322 27 Jun, 2017 Bipolar disorder, unspecified F31.9 and Post-traumatic stress disorder, chronic F43.12 [place] [address] [place] [id number] [place] [address] 40892- 8222 Jun, [address] 62292- 6916 Jun, Severe episode of recurrent major depressive disorder, without psychotic features F33.2 ; Endometritis following delivery O86.12 ; Elevated TSH R94.6 ; IUFD at less than 20 weeks of gestation O02.1 ; Right upper quadrant pain R10.11 and Positive urine drug screen R82.5 [place] [address] [place] [id number] [place] [address] 14733- 9215 20 Jun, 2017 IUFD at less than 20 weeks of gestation O02.1 [place] [address] [place] [id number] [place] [address] 82876- 4440 20 Jun, 2017 [place] [address] 02095- 8065 13 Jun, 2017 care, first in second trimester Z34.02 ; RUQ pain R10.11 and 18 weeks gestation of Z3A.18 [place] [address] [place] [id number] [place] [address] 91411- 9918 16 May, 2017 14 weeks gestation of Z3A.14 and care, first in second trimester Z34.02 [place] [address] [place] [id number] [place] [address] 89786- 3072 11 May, 2017 [place] [address] [place] [id number] [place] [address] 91072- 5500 May, Vaginal bleeding in O46.90 [place] [address] [place] [id number] [place] [address] 16436- 7364 Apr, [place] [address] [place] [id number] [place] [address] 80610- 4500 Apr, Encounter for supervision of normal first in first trimester Z34.01 ; 10 weeks gestation of Z3A.10 ; Other specified disorders of amniotic fluid and membranes, first trimester, not applicable or unspecified O41.8X10 and Other antepartum hemorrhage, first trimester O46.8X1 [place] [address] [place] [id number] [place] [address] 19882- 4019 Apr, [place] [address] [place] [id number] [place] [address] 89550- 1366 Apr, Threatened miscarriage in early O20.0 [place] [address] 27539- 2496 Apr, Screening for deficiency anemia Z13.0 [facility] [address] 9176 Apr, Encounter for supervision of normal first in first trimester Z34.01 [facility] [address]- 1775 Apr, [place] [address] [place] [id number] [place] [address] 230700- 7823 Apr, Encounter for supervision of normal first in first trimester Z34.01 [place] [address] [place] [id number] [place] [address] 793764- 7320 Apr, Encounter for supervision of normal first in first trimester Z34.01 [place] [address], [place] [address]- 2241 Mar, [place] [address] [place] [id number] [address]- 5587 Mar, Encounter for test, result unknown Z32.00 IMMUNIZATIONS No Known Immunizations SOCIAL HISTORY Never Assessed REASON FOR VISIT Presumptive Eligibility-approved PLAN OF CARE VITAL SIGNS MEDICATIONS Unknown Medications RESULTS No Results PROCEDURES No Known procedures INSTRUCTIONS MEDICATIONS ADMINISTERED No Known Medications MEDICAL (GENERAL) HISTORY Type Description Date Medical History depression and anxiety Surgical History 5 wisdom teeth removed 2014 Surgical History mole removed preteen Hospitalization History Misscarried 07/02 Hospitalization History multiple inpatient psych treatments teens
--- OUTSIDE RECORDS SUMMARY | 2018-02-13 12:49 | XMS REPORT ---
Author Author AYAH SIMS [facility] Address [address] [place] [address] Care Team Providers Care Screw Machine Operator Swiss Type Name Role Phone AYAH SIMS Unavailable PROBLEMS Type Condition ICD9-CM Code AMP34-QT Code Onset Dates Condition Status SNOMED Code Problem History of methamphetamine use Z87.898 Active 990114444 Problem Cannabis abuse F12.10 Active 82496165 Problem Methamphetamine use disorder, moderate, 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 Active 12211262 Problem IUFD at less than 20 weeks of gestation O02.1 Active 460356941 Problem Episodic cannabis use F12.90 Active 620433687 Problem Bipolar disorder, unspecified F31.9 Active 71678142 Problem Post-traumatic stress disorder, chronic F43.12 Active 49186247 ALLERGIES No Information ENCOUNTERS Encounter Location Date Diagnosis [place] [address] [address] Oct, [place] [address] [address] September, Post-traumatic stress disorder, chronic F43.12 ; Bipolar disorder, unspecified F31.9 ; Cannabis abuse F12.10 and Methamphetamine use disorder, moderate, 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 [place] [address] [place] [id number] [place] [address] September, Encounter for IUD removal Z30.432 [place] [address] [address] Aug, Post-traumatic stress disorder, chronic F43.12 ; Bipolar disorder, unspecified F31.9 ; Cannabis abuse F12.10 and Methamphetamine use disorder, moderate, 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 [place] [address] [address] 03 Aug, 2017 exam Z39.2 and Encounter for IUD insertion Z30.[address] [address] 13 Jul, 2017 control counseling Z30.09 and IUFD at less than 20 weeks of gestation O02.[address] [address] 08 Jul, 2017 Post-traumatic stress disorder, chronic F43.12 ; Bipolar disorder, unspecified F31.9 ; Cannabis abuse F12.10 and Methamphetamine use disorder, moderate, 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 [address] Jun, Bipolar disorder, unspecified F31.9 and Post-traumatic stress disorder, chronic F43.[address] [address] Jun, [address] [address] Jun, Severe episode of recurrent major depressive disorder, without psychotic features F33.2 ; Endometritis following delivery O86.12 ; Elevated TSH R94.6 ; IUFD at less than 20 weeks of gestation O02.1 ; Right upper quadrant pain R10.11 and Positive urine drug screen R82.[address] [address] Jun, IUFD at less than 20 weeks of gestation O02.1 [place] [address] [address] Jun, [address] [address] 13 Jun, 2017 care, first in second trimester Z34.02 ; RUQ pain R10.11 and 18 weeks gestation of Z3A.[address] [address] May, 14 weeks gestation of Z3A.14 and care, first in second trimester Z34.02 [place] [address] [place] [id number] [place] [address]- [address] May, [place] [address] [place] [id number] [place] [address] 38585- 1805 May, Vaginal bleeding in O46.90 [place] [address] [place] [id number] [place] [address]- 77[address] Apr, [place] [address] [place] [id number] [place] [address] 14185- 6706 Apr, Encounter for supervision of normal first in first trimester Z34.01 ; 10 weeks gestation of Z3A.10 ; Other specified disorders of amniotic fluid and membranes, first trimester, not applicable or unspecified O41.8X10 and Other antepartum hemorrhage, first trimester O46.8X1 [place] [address] [place] [id number] [place] [address] 16[address]- 5829 Apr, [place] [address] [place] [id number] [place] [address] 99691- 7615 Apr, Threatened miscarriage in early O20.0 [place] [address] [place] [id number] [place] [address]- 4277 Apr, Screening for deficiency anemia Z13.0 [place] [address] [place] [id number] [place] [address] 44606- 5471 Apr, Encounter for supervision of normal first in first trimester Z34.01 [place] [address] [place] [id number] [place] [address] 01877- 9[address] Apr, [place] [address] [place] [id number] [place] [address] 51316- 6408 Apr, Encounter for supervision of normal first in first trimester Z34.01 [place] [address] [place] [id number] [place] [address] 53640- 5437 Apr, Encounter for supervision of normal first in first trimester Z34.01 [facility] [address] [facility] [id number] [place] [address] Mar, [facility] [address] [facility] [id number] [place] [address] Mar, Encounter for test, result unknown Z32.00 IMMUNIZATIONS No Known Immunizations SOCIAL HISTORY Never Assessed REASON FOR VISIT Rx from lab results PLAN OF CARE VITAL SIGNS MEDICATIONS Medication Instructions Dosage Frequency Start Date End Date Duration Status Clotrimazole-7 1 % Vaginal Once a day 1 application at bedtime 24h Apr, May, 7 day(s) Active Clindamycin HCl 300 MG Orally every 12 hrs 1 capsule 12h Apr, May, 07 days Active RESULTS No Results PROCEDURES No Known procedures INSTRUCTIONS MEDICATIONS ADMINISTERED No Known Medications MEDICAL (GENERAL) HISTORY Type Description Date Medical History depression and anxiety Surgical History 5 wisdom teeth removed 2014 Surgical History mole removed preteen Hospitalization History Misscarried 07/02 Hospitalization History multiple inpatient psych treatments teens
--- OUTSIDE RECORDS SUMMARY | 2018-02-13 12:49 | XMS REPORT ---
Author Author BETHANY AYAH Organization [facility] Address [address] [place] [address] Care Team Providers Care Powerhouse Helper Name Role Phone BETHANYJESSICA FINNHANY Unavailable PROBLEMS Type Condition ICD9-CM Code IAO81-QV Code Onset Dates Condition Status SNOMED Code Problem History of methamphetamine use Z87.898 Active 438912131 Problem Cannabis abuse F12.10 Active 31815442 Problem Methamphetamine use disorder, moderate, 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 Active 47780989 Problem IUFD at less than 20 weeks of gestation O02.1 Active 340176428 Problem Episodic cannabis use F12.90 Active 686212509 Problem Bipolar disorder, unspecified F31.9 Active 43711726 Problem Post-traumatic stress disorder, chronic F43.12 Active 94219150 ALLERGIES Substance Reaction Event Type Date Status Clonidine HCl hypotension Drug Allergy Jul, Active Amoxicillin hives Drug Allergy Jul, Active ENCOUNTERS Encounter Location Date Diagnosis [place] [address] [place] [address] Dec, [place] [address] [place] [address] Nov, Post-traumatic stress disorder, chronic F43.12 ; Bipolar disorder, unspecified F31.9 ; Cannabis abuse F12.10 and Methamphetamine use disorder, moderate, 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 [place] [address] [address] Oct, [place] [address] [place] [id number] [place] [address] Oct, Post-traumatic stress disorder, chronic F43.12 ; Bipolar disorder, unspecified F31.9 ; Cannabis abuse F12.10 and Methamphetamine use disorder, moderate, 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 [place] [address] [place] [id number] [place] [address] 95[address]- [address] September, Post-traumatic stress disorder, chronic F43.12 ; Bipolar disorder, unspecified F31.9 ; Cannabis abuse F12.10 and Methamphetamine use disorder, moderate, 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 [place] [id number] [place] [address] September, Encounter for IUD removal Z30.[address] [address] 04 Aug, 2017 Post-traumatic stress disorder, chronic F43.12 ; Bipolar disorder, unspecified F31.9 ; Cannabis abuse F12.10 and Methamphetamine use disorder, moderate, 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 [place] [id number] [place] [address] 8[address]- [address] 03 Aug, 2017 exam Z39.2 and Encounter for IUD insertion Z30.[address] [address]- [address] 13 Jul, 2017 control counseling Z30.09 and IUFD at less than 20 weeks of gestation O02.[address] [address]- [address] 08 Jul, 2017 Post-traumatic stress disorder, chronic F43.12 ; Bipolar disorder, unspecified F31.9 ; Cannabis abuse F12.10 and Methamphetamine use disorder, moderate, 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 [place] [id number] [place] [address] 24449- 2[address] Jun, Bipolar disorder, unspecified F31.9 and Post-traumatic stress disorder, chronic F43.[address] [address]- [address] Jun, [address] [address]- [address] Jun, Severe episode of recurrent major depressive disorder, without psychotic features F33.2 ; Endometritis following delivery O86.12 ; Elevated TSH R94.6 ; IUFD at less than 20 weeks of gestation O02.1 ; Right upper quadrant pain R10.11 and Positive urine drug screen R82.5 [place] [address] [place] [id number] [place] [address] 55876- 5[address] 20 Jun, 2017 IUFD at less than 20 weeks of gestation O02.1 [place] [address] [place] [id number] [place] [address] 21484- 39[address] 20 Jun, 2017 [place] [address] [address] 13 Jun, 2017 care, first in second trimester Z34.02 ; RUQ pain R10.11 and 18 weeks gestation of Z3A.18 [place] [address] [place] [id number] [place] [address]- [address] 16 May, 2017 14 weeks gestation of Z3A.14 and care, first in second trimester Z34.02 [place] [address] [place] [id number] [place] [address]- [address] 11 May, 2017 [place] [address] [address] May, Vaginal bleeding in O46.90 [place] [address] [place] [id number] [place] [address] 42432- 6597 Apr, [place] [address] [place] [id number] [place] [address] 0[address]39- 7911 Apr, Encounter for supervision of normal first in first trimester Z34.01 ; 10 weeks gestation of Z3A.10 ; Other specified disorders of amniotic fluid and membranes, first trimester, not applicable or unspecified O41.8X10 and Other antepartum hemorrhage, first trimester O46.8X1 [place] [address] [place] [id number] [place] [address] 17489- 0571 Apr, [place] [address] [place] [id number] [place] [address] 45[address]- 2293 Apr, Threatened miscarriage in early O20.0 [facility] [address] [place] [id number] [address] Apr, Screening for deficiency anemia Z13.0 [facility] [address] [address] Apr, Encounter for supervision of normal first in first trimester Z34.01 [place] [address] [place] [address] 87786- 2127 Apr, [place] [address] [place] [id number] [place] [address] 98747- 9232 Apr, Encounter for supervision of normal first in first trimester Z34.01 [place] [address] [place] [id number] [place] [address] 65742- 7338 Apr, Encounter for supervision of normal first in first trimester Z34.01 [place] [address] [place] [address] 27591- 3778 Mar, [place] [address] [place] [address] 42394- 4451 Mar, Encounter for test, result unknown Z32.00 IMMUNIZATIONS No Known Immunizations SOCIAL HISTORY Never Assessed REASON FOR VISIT OB [id number], Pt is concerned due to continued vaginal bleeding and breast milk production PLAN OF CARE Activity Details Follow Up as scheduled Reason: VITAL SIGNS Height 5'7" in 2017-07-25 Weight 144.0 lbs 2017-07-25 Temperature 97.6 degrees Fahrenheit 2017-07-25 Heart Rate 72 bpm 2017-07-25 Respiratory Rate 18 2017-07-25 BMI 22.55 kg/m2 2017-07-25 Blood pressure systolic 126 mmHg 2017-07-25 Blood pressure diastolic 80 mmHg 2017-07-25 MEDICATIONS Medication Instructions Dosage Frequency Start Date End Date Duration Status Hydrocodone-Acetaminophen 5-325 MG Orally twice a day 1 tablet as needed 12h 27 Jun, 2017 Not-Taking Ibuprofen 800 MG Orally Three times a day 1 tablet with food or milk as needed 8h Active Clindamycin HCl Active Lamictal 25 MG Orally Twice a day 1 tablet every night for 2 weeks then take 2 tablets every night for 2 weeks, then take 3 tablets every night 12h Jul 30 day(s) Active BusPIRone HCl 5 MG Orally Three times a day 1 tablet 8h Jul, 30 days Active Wellbutrin SR 150 MG Orally Twice a day 1 tablet 12h Jun, 30 day(s) Not-Taking Vol-Care Rx 1 MG Orally Once a day 1 tablet 24h Apr, 30 day(s) Active Vitamin Not-Taking RESULTS No Results PROCEDURES No Known procedures INSTRUCTIONS MEDICATIONS ADMINISTERED No Known Medications MEDICAL (GENERAL) HISTORY Type Description Date Medical History depression and anxiety Surgical History 5 wisdom teeth removed 2014 Surgical History mole removed preteen Hospitalization History Misscarried 07/02 Hospitalization History multiple inpatient psych treatments teens
--- OUTSIDE RECORDS SUMMARY | 2018-02-13 12:49 | XMS REPORT ---
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 Name Role Phone ANDRE BRENNA Unavailable PROBLEMS Type Condition ICD9-CM Code VOF85-DJ Code Onset Dates Condition Status SNOMED Code Problem History of methamphetamine use Z87.898 Active 594385630 Problem Cannabis abuse F12.10 Active 04759648 Problem Methamphetamine use disorder, moderate, 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 Active 10555432 Problem IUFD at less than 20 weeks of gestation O02.1 Active 450072849 Problem Episodic cannabis use F12.90 Active 025022795 Problem Bipolar disorder, unspecified F31.9 Active 19629794 Problem Post-traumatic stress disorder, chronic F43.12 Active 03243294 ALLERGIES Substance Reaction Event Type Date Status Clonidine HCl hypotension Drug Allergy Jul, Active Amoxicillin hives Drug Allergy Jul, Active ENCOUNTERS Encounter Location Date Diagnosis [place] [address] [place] [address]- [address] Dec, [place] [address] [address] [place] [address]- [address] Nov, Post-traumatic stress disorder, chronic F43.12 ; Bipolar disorder, unspecified F31.9 ; Cannabis abuse F12.10 and Methamphetamine use disorder, moderate, 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 [place] [address] [address] Oct, [place] [address] [place] [id number] [place] [address] 34881- 0447 Oct, Post-traumatic stress disorder, chronic F43.12 ; Bipolar disorder, unspecified F31.9 ; Cannabis abuse F12.10 and Methamphetamine use disorder, moderate, 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 [place] [address] [place] [id number] [place] [address] 54155- 7438 September, Post-traumatic stress disorder, chronic F43.12 ; Bipolar disorder, unspecified F31.9 ; Cannabis abuse F12.10 and Methamphetamine use disorder, moderate, 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 [place] [id number] [place] [address] 49745- 8314 September, Encounter for IUD removal Z30.[address] [address]- [address] 04 Aug, 2017 Post-traumatic stress disorder, chronic F43.12 ; Bipolar disorder, unspecified F31.9 ; Cannabis abuse F12.10 and Methamphetamine use disorder, moderate, 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 [place] [id number] [place] [address] 71554- 9904 03 Aug, 2017 exam Z39.2 and Encounter for IUD insertion Z30.[address] [address]- [address] 13 Jul, 2017 control counseling Z30.09 and IUFD at less than 20 weeks of gestation O02.[address] [address]- 8960 08 Jul, 2017 Post-traumatic stress disorder, chronic F43.12 ; Bipolar disorder, unspecified F31.9 ; Cannabis abuse F12.10 and Methamphetamine use disorder, moderate, 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 [place] [id number] [place] [address] 54986- 8493 Jun, Bipolar disorder, unspecified F31.9 and Post-traumatic stress disorder, chronic F43.[address] [address]- [address]16 Jun, [address] [address]- 0408 Jun, Severe episode of recurrent major depressive disorder, without psychotic features F33.2 ; Endometritis following delivery O86.12 ; Elevated TSH R94.6 ; IUFD at less than 20 weeks of gestation O02.1 ; Right upper quadrant pain R10.11 and Positive urine drug screen R82.5 [place] [address] [place] [id number] [place] [address] 45583- 9646 20 Jun, 2017 IUFD at less than 20 weeks of gestation O02.1 [place] [address] [place] [id number] [place] [address] 37000- 4836 20 Jun, 2017 [place] [address] [address]- 9539 13 Jun, 2017 care, first in second trimester Z34.02 ; RUQ pain R10.11 and 18 weeks gestation of Z3A.18 [place] [address] [place] [id number] [place] [address] 60995- 3266 16 May, 2017 14 weeks gestation of Z3A.14 and care, first in second trimester Z34.02 [place] [address] [place] [id number] [place] [address] 93221- 2186 11 May, 2017 [place] [address] [address]- [address] May, Vaginal bleeding in O46.90 [place] [address] [place] [id number] [place] [address] 98122- 2896 Apr, [place] [address] [place] [id number] [place] [address] 62393- 1913 Apr, Encounter for supervision of normal first in first trimester Z34.01 ; 10 weeks gestation of Z3A.10 ; Other specified disorders of amniotic fluid and membranes, first trimester, not applicable or unspecified O41.8X10 and Other antepartum hemorrhage, first trimester O46.8X1 [place] [address] [place] [id number] [place] [address] 13042- 2015 Apr, [place] [address] [place] [id number] [place] [address] 34185- 3044 Apr, Threatened miscarriage in early O20.0 [facility] [address] [place] [id number] [address] Apr, Screening for deficiency anemia Z13.0 [facility] [address] [address]- 0282 Apr, Encounter for supervision of normal first in first trimester Z34.01 [place] [address] [address]- 7687 Apr, [place] [address] [place] [id number] [place] [address] 69439- 9657 Apr, Encounter for supervision of normal first in first trimester Z34.01 [place] [address] [place] [id number] [place] [address] 83130- 7208 Apr, Encounter for supervision of normal first in first trimester Z34.01 [place] [address] [address]- [address] Mar, [place] [address] [place] [address] 48379- 9138 Mar, Encounter for test, result unknown Z32.00 IMMUNIZATIONS No Known Immunizations SOCIAL HISTORY Never Assessed REASON FOR VISIT phan Arreaga MA PLAN OF CARE Activity Details Follow Up 4 Weeks Reason: VITAL SIGNS Height 5'7" in 2017-07-20 Weight 145.7 lbs 2017-07-20 Heart Rate 80 bpm 2017-07-20 Respiratory Rate 20 2017-07-20 BMI 22.82 kg/m2 2017-07-20 Blood pressure systolic 110 mmHg 2017-07-20 Blood pressure diastolic 80 mmHg 2017-07-20 MEDICATIONS Medication Instructions Dosage Frequency Start Date End Date Duration Status BusPIRone HCl 5 MG Orally Three times a day 1 tablet 8h Jul, 30 days Active Ibuprofen 800 MG Orally Three times a day 1 tablet with food or milk as needed 8h Active Hydrocodone-Acetaminophen 5-325 MG Orally twice a day 1 tablet as needed 12h Jun, Active Wellbutrin SR 150 MG Orally Twice a day 1 tablet 12h Jun, 30 day(s) Not-Taking Vitamin Active Vol-Care Rx 1 MG Orally Once a day 1 tablet 24h Apr, 30 day(s) Active Clindamycin HCl 300 MG Orally every 6 hrs 1 capsule 6h Jun,Jul 10 days Active Lamictal 25 MG Orally Twice a day 1 tablet every night for 2 weeks then take 2 tablets every night for 2 weeks, then take 3 tablets every night 12h 08 Jul 30 day(s) Active RESULTS No Results PROCEDURES No Known procedures INSTRUCTIONS MEDICATIONS ADMINISTERED No Known Medications MEDICAL (GENERAL) HISTORY Type Description Date Medical History depression and anxiety Surgical History 5 wisdom teeth removed 2014 Surgical History mole removed preteen Hospitalization History Misscarried 07/02 Hospitalization History multiple inpatient psych treatments teens
--- OUTSIDE RECORDS SUMMARY | 2018-02-13 12:49 | XMS REPORT ---
Author Author AYAH SIMS [facility] Address [address] [place] [address] Care Team Providers Care Insurance Verify Rep Name Role Phone AYAH SIMS Unavailable PROBLEMS Type Condition ICD9-CM Code [id number] Code Onset Dates Condition Status SNOMED Code Problem History of methamphetamine use Z87.898 Active 405535426 Problem Cannabis abuse F12.10 Active 58253180 Problem Methamphetamine use disorder, moderate, 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 Active 58259925 Problem IUFD at less than 20 weeks of gestation O02.1 Active 663360084 Problem Episodic cannabis use F12.90 Active 935876665 Problem Bipolar disorder, unspecified F31.9 Active 54298565 Problem Post-traumatic stress disorder, chronic F43.12 Active 13657159 ALLERGIES No Information ENCOUNTERS Encounter Location Date Diagnosis [place] [address] [place] [address] 70797- 7458 Nov, [place] [address] [place] [address] 44085- 0041 Oct, [place] [address] [place] [address] 08923- 6001 Oct, Post-traumatic stress disorder, chronic F43.12 ; Bipolar disorder, unspecified F31.9 ; Cannabis abuse F12.10 and Methamphetamine use disorder, moderate, 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 [place] [address] [place] [address] 05113- 9494 September, Post-traumatic stress disorder, chronic F43.12 ; Bipolar disorder, unspecified F31.9 ; Cannabis abuse F12.10 and Methamphetamine use disorder, moderate, 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 [place] [address] [place] [address] 62533- 5549 September, Encounter for IUD removal Z30.432 [place] [address] [place] [id number] [place] [address] 56040- 1695 04 Aug, 2017 Post-traumatic stress disorder, chronic F43.12 ; Bipolar disorder, unspecified F31.9 ; Cannabis abuse F12.10 and Methamphetamine use disorder, moderate, 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 [place] [address] [place] [id number] [place] [address] 80731- 4781 03 Aug, 2017 exam Z39.2 and Encounter for IUD insertion Z30.430 [place] [address] [place] [id number] [place] [address] 57473- 4630 13 Jul, 2017 control counseling Z30.09 and IUFD at less than 20 weeks of gestation O02.1 [place] [address] 86270- 9573 Jul, Post-traumatic stress disorder, chronic F43.12 ; Bipolar disorder, unspecified F31.9 ; Cannabis abuse F12.10 and Methamphetamine use disorder, moderate, 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 [place] [address] [place] [id number] [place] [address] 95705- 6227 Jun, Bipolar disorder, unspecified F31.9 and Post-traumatic stress disorder, chronic F43.12 [place] [address] [place] [id number] [place] [address] 92087- 6535 Jun, [place] [address] 07142- 8852 Jun, Severe episode of recurrent major depressive disorder, without psychotic features F33.2 ; Endometritis following delivery O86.12 ; Elevated TSH R94.6 ; IUFD at less than 20 weeks of gestation O02.1 ; Right upper quadrant pain R10.11 and Positive urine drug screen R82.5 [place] [address] [place] [id number] [place] [address] 45867- 4228 20 Jun, 2017 IUFD at less than 20 weeks of gestation O02.1 [place] [address] [place] [address]- 8836 20 Jun, 2017 [place] [address] [place] [id number] [place] [address] 64461- 5434 13 Jun, 2017 care, first in second trimester Z34.02 ; RUQ pain R10.11 and 18 weeks gestation of Z3A.18 [place] [address] [place] [id number] [place] [address] 01956- 9607 16 May, 2017 14 weeks gestation of Z3A.14 and care, first in second trimester Z34.02 [place] [address] [place] [id number] [place] [address] 48812- 1604 11 May, 2017 [place] [address] [place] [id number] [place] [address] 74008- 9773 May, Vaginal bleeding in O46.90 [place] [id number] [place] [address] 56176- 4201 Apr, [place] [address] [place] [id number] [place] [address] 94599- 8711 Apr, Encounter for supervision of normal first in first trimester Z34.01 ; 10 weeks gestation of Z3A.10 ; Other specified disorders of amniotic fluid and membranes, first trimester, not applicable or unspecified O41.8X10 and Other antepartum hemorrhage, first trimester O46.8X1 [place] [address] [place] [address] 58016- 9348 Apr, [place] [address] [place] [id number] [place] [address] 40762- 3144 Apr, Threatened miscarriage in early O20.[address] 38995- 3804 Apr, Screening for deficiency anemia Z13.0 [place] [address] [place] [address] 57975- 7668 Apr, Encounter for supervision of normal first in first trimester Z34.01 [place] [address] [address] 2546 Apr, [facility] [address] [facility] [id number] [address]43 Apr, Encounter for supervision of normal first in first trimester Z34.01 [facility] [address] [place] [id number] [address] 1413 Apr, Encounter for supervision of normal first in first trimester Z34.01 [facility] [address] [place] [id number]693 Mar, [place] [address] [address]- 2034 Mar, Encounter for test, result unknown Z32.00 IMMUNIZATIONS No Known Immunizations SOCIAL HISTORY Never Assessed REASON FOR VISIT 4 wk OB f/u -- kadeem don PLAN OF CARE Activity Details Follow Up 4 Weeks, 4 Weeks, 4 Weeks Reason: VITAL SIGNS Height 5'7" in 2017-05-30 Weight 143.0 lbs 2017-05-30 Temperature 98.0 degrees Fahrenheit 2017-05-30 Heart Rate 72 bpm 2017-05-30 Respiratory Rate 20 2017-05-30 BMI 22.39 kg/m2 2017-05-30 Blood pressure systolic 118 mmHg 2017-05-30 Blood pressure diastolic 68 mmHg 2017-05-30 MEDICATIONS Medication Instructions Dosage Frequency Start Date End Date Duration Status Vitamin Active Vol-Care Rx 1 MG Orally Once a day 1 tablet 24h Apr, 30 day(s) Active RESULTS Name Result Date Reference Range UA OB DIP (IN HOUSE) 2017-05-30 Glucose neg Protein neg PROCEDURES Procedure Date Ordered Result Body Site URINE-NO MICRO May 30, 2017 INSTRUCTIONS MEDICATIONS ADMINISTERED No Known Medications MEDICAL (GENERAL) HISTORY Type Description Date Medical History depression and anxiety Surgical History 5 wisdom teeth removed 2014 Surgical History mole removed preteen Hospitalization History Misscarried 07/02 Hospitalization History multiple inpatient psych treatments teens
--- OUTSIDE RECORDS SUMMARY | 2018-02-13 12:49 | XMS REPORT ---
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 Name Role Phone BETHANYJESSICA FINNHANY Unavailable PROBLEMS Type Condition ICD9-CM Code [id number] Code Onset Dates Condition Status SNOMED Code Problem History of methamphetamine use Z87.898 Active 597498487 Problem Cannabis abuse F12.10 Active 21784509 Problem Methamphetamine use disorder, moderate, 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 Active 21109642 Problem IUFD at less than 20 weeks of gestation O02.1 Active 256694364 Problem Episodic cannabis use F12.90 Active 137430431 Problem Bipolar disorder, unspecified F31.9 Active 30843077 Problem Post-traumatic stress disorder, chronic F43.12 Active 21315154 ALLERGIES Substance Reaction Event Type Date Status Clonidine HCl hypotension Drug Allergy Aug, Active Amoxicillin hives Drug Allergy Aug, Active ENCOUNTERS Encounter Location Date Diagnosis [place] [address] [place] [address] 09598- 3216 Dec, [place] [address] [place] [address] 78052- 9007 Nov, Post-traumatic stress disorder, chronic F43.12 ; Bipolar disorder, unspecified F31.9 ; Cannabis abuse F12.10 and Methamphetamine use disorder, moderate, 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 [place] [address], [place] [address] 3447 Oct, [place] [address] [place] [id number] [place] [address] 28117- 8119 Oct, Post-traumatic stress disorder, chronic F43.12 ; Bipolar disorder, unspecified F31.9 ; Cannabis abuse F12.10 and Methamphetamine use disorder, moderate, 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 [place] [address] [place] [id number] [place] [address] 47027- 2771 September, Post-traumatic stress disorder, chronic F43.12 ; Bipolar disorder, unspecified F31.9 ; Cannabis abuse F12.10 and Methamphetamine use disorder, moderate, 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 [place] [id number] [place] [address] 80750- 4172 September, Encounter for IUD removal Z30.[address] 18102- 7614 04 Aug, 2017 Post-traumatic stress disorder, chronic F43.12 ; Bipolar disorder, unspecified F31.9 ; Cannabis abuse F12.10 and Methamphetamine use disorder, moderate, 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 [place] [id number] [place] [address] 11497- 8885 03 Aug, 2017 exam Z39.2 and Encounter for IUD insertion Z30.[address] 65591- 2586 13 Jul, 2017 control counseling Z30.09 and IUFD at less than 20 weeks of gestation O02.[address] 53342- 1363 08 Jul, 2017 Post-traumatic stress disorder, chronic F43.12 ; Bipolar disorder, unspecified F31.9 ; Cannabis abuse F12.10 and Methamphetamine use disorder, moderate, 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 [place] [id number] [place] [address] 67550- 5618 Jun, Bipolar disorder, unspecified F31.9 and Post-traumatic stress disorder, chronic F43.[address] 64467- 3203 Jun, [address] 05018- 6925 Jun, Severe episode of recurrent major depressive disorder, without psychotic features F33.2 ; Endometritis following delivery O86.12 ; Elevated TSH R94.6 ; IUFD at less than 20 weeks of gestation O02.1 ; Right upper quadrant pain R10.11 and Positive urine drug screen R82.5 [place] [address] [place] [id number] [place] [address] 62163- 0189 20 Jun, 2017 IUFD at less than 20 weeks of gestation O02.1 [place] [address] [place] [id number] [place] [address] 68864- 9674 20 Jun, 2017 [place] [address] 47646- 2699 13 Jun, 2017 care, first in second trimester Z34.02 ; RUQ pain R10.11 and 18 weeks gestation of Z3A.18 [place] [address] [place] [id number] [place] [address] 70883- 5582 16 May, 2017 14 weeks gestation of Z3A.14 and care, first in second trimester Z34.02 [place] [address] [place] [id number] [place] [address] 57083- 7690 11 May, 2017 [place] [address] 32686- 0039 May, Vaginal bleeding in O46.90 [place] [address] [place] [id number] [place] [address] 89170- 5838 Apr, [place] [address] [place] [id number] [place] [address] 18633- 2336 Apr, Encounter for supervision of normal first in first trimester Z34.01 ; 10 weeks gestation of Z3A.10 ; Other specified disorders of amniotic fluid and membranes, first trimester, not applicable or unspecified O41.8X10 and Other antepartum hemorrhage, first trimester O46.8X1 [place] [address] [place] [id number] [place] [address] 20519- 0802 Apr, [place] [address] [place] [id number] [place] [address] 41743- 7543 Apr, Threatened miscarriage in early O20.0 [facility] [address] [place] [id number], [place] [address]- 5521 Apr, Screening for deficiency anemia Z13.0 [place] [address] [place] [address] 78232- 4238 Apr, Encounter for supervision of normal first in first trimester Z34.01 [place] [address] [place] [id number] [place] [address] 32209- 5527 Apr, [place] [address] [place] [id number] [place] [address] 60272- 5143 Apr, Encounter for supervision of normal first in first trimester Z34.01 [place] [address] [place] [id number] [place] [address] 63262- 9095 Apr, Encounter for supervision of normal first in first trimester Z34.01 [place] [address] [place] [id number] [place] [address] 88846- 7633 Mar, [place] [address] [place] [address] 89805- 8750 Mar, Encounter for test, result unknown Z32.00 IMMUNIZATIONS No Known Immunizations SOCIAL HISTORY Never Assessed REASON FOR VISIT Postpardum/IUD Insertion--tcuppettRN, consent signed PLAN OF CARE Activity Details Follow Up 4W. 4 Weeks Reason: VITAL SIGNS Height 5'7" in 2017-08-15 Weight 146.9 lbs 2017-08-15 Temperature 98.9 degrees Fahrenheit 2017-08-15 Heart Rate 84 bpm 2017-08-15 Respiratory Rate 20 2017-08-15 BMI 23.01 kg/m2 2017-08-15 Blood pressure systolic 118 mmHg 2017-08-15 Blood pressure diastolic 72 mmHg 2017-08-15 MEDICATIONS Medication Instructions Dosage Frequency Start Date End Date Duration Status BusPIRone HCl 5 MG Orally Three times a day 1 tablet 8h Jul, 30 days Active Lamictal 25 MG Orally Twice a day 1 tablet every night for 2 weeks then take 2 tablets every night for 2 weeks, then take 3 tablets every night 12h Jul 30 day(s) Active Mirena 20 MCG/24HR Intrauterine Placed 08/15/2017 as directed Aug, Active Vol-Care Rx 1 MG Orally Once a day 1 tablet 24h Apr, 30 day(s) Active RESULTS Name Result Date Reference Range TEST, URINE (IN HOUSE) RESULTS negative Lot # [id number] Control + Exp date 03/02 PROCEDURES Procedure Date Ordered Result Body Site INSERT INTRAUTERINE DEVICE August 15, 2017 URINE TEST August 15, 2017 INSTRUCTIONS MEDICATIONS ADMINISTERED No Known Medications MEDICAL (GENERAL) HISTORY Type Description Date Medical History depression and anxiety Surgical History 5 wisdom teeth removed 2014 Surgical History mole removed preteen Hospitalization History Misscarried 07/02 Hospitalization History multiple inpatient psych treatments teens
--- OUTSIDE RECORDS SUMMARY | 2018-02-13 12:49 | XMS REPORT ---
Author Author EDGARDO PHAM Organization [facility] Address [address] [place] [address] Care Team Providers Care Weeder Thinner Name Role Phone EDGARDO PHAM Unavailable PROBLEMS Type Condition ICD9-CM Code [id number] Code Onset Dates Condition Status SNOMED Code Problem History of methamphetamine use Z87.898 Active 501194731 Problem Cannabis abuse F12.10 Active 01278328 Problem Methamphetamine use disorder, moderate, 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 Active 43249345 Problem IUFD at less than 20 weeks of gestation O02.1 Active 163923955 Problem Episodic cannabis use F12.90 Active 545142988 Problem Bipolar disorder, unspecified F31.9 Active 58472078 Problem Post-traumatic stress disorder, chronic F43.12 Active 82632621 ALLERGIES No Information ENCOUNTERS Encounter Location Date Diagnosis [facility] [address] [place] [address] 23876- 0140 Nov, [facility] [address] [place] [id number] [place] [address] 29844- 3050 Oct, [place] [address] [place] [id number] [place] [address] 01565- 9516 Oct, Post-traumatic stress disorder, chronic F43.12 ; Bipolar disorder, unspecified F31.9 ; Cannabis abuse F12.10 and Methamphetamine use disorder, moderate, 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 [facility] [address] [place] [address] 34604- 4301 September, Post-traumatic stress disorder, chronic F43.12 ; Bipolar disorder, unspecified F31.9 ; Cannabis abuse F12.10 and Methamphetamine use disorder, moderate, 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 [facility] [address] [place] [address] 55305- 2075 September, Encounter for IUD removal Z30.432 [place] [address] [place] [address] 65555- 5424 04 Aug, 2017 Post-traumatic stress disorder, chronic F43.12 ; Bipolar disorder, unspecified F31.9 ; Cannabis abuse F12.10 and Methamphetamine use disorder, moderate, 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 [place] [address] [place] [id number] [place] [address] 74948- 5985 03 Aug, 2017 exam Z39.2 and Encounter for IUD insertion Z30.430 [place] [address] [place] [id number] [place] [address] 45829- 9434 13 Jul, 2017 control counseling Z30.09 and IUFD at less than 20 weeks of gestation O02.1 [place] [address] [place] [id number] [place] [address] 44092- 0513 08 Jul, 2017 Post-traumatic stress disorder, chronic F43.12 ; Bipolar disorder, unspecified F31.9 ; Cannabis abuse F12.10 and Methamphetamine use disorder, moderate, 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 [place] [address] [place] [id number] [place] [address] 09566- 0419 27 Jun, 2017 Bipolar disorder, unspecified F31.9 and Post-traumatic stress disorder, chronic F43.12 [place] [address] [place] [address] 92171- 8911 Jun, [place] [address] [place] [id number] [place] [address] 28511- 7703 Jun, Severe episode of recurrent major depressive disorder, without psychotic features F33.2 ; Endometritis following delivery O86.12 ; Elevated TSH R94.6 ; IUFD at less than 20 weeks of gestation O02.1 ; Right upper quadrant pain R10.11 and Positive urine drug screen R82.5 [place] [address] [place] [id number] [place] [address] 44128- 5090 20 Jun, 2017 IUFD at less than 20 weeks of gestation O02.1 [place] [address] 31817- 4371 20 Jun, 2017 [place] [address] [place] [address] 22212- 3528 13 Jun, 2017 care, first in second trimester Z34.02 ; RUQ pain R10.11 and 18 weeks gestation of Z3A.18 [place] [address] [place] [id number] [place] [address] 25964- 3690 16 May, 2017 14 weeks gestation of Z3A.14 and care, first in second trimester Z34.02 [place] [address] [place] [id number] [place] [address] 02328- 3102 May, [place] [address] [place] [id number] [place] [address] 70736- 6048 May, Vaginal bleeding in O46.90 [place] [id number] [place] [address] 81947- 8582 Apr, [place] [address] [place] [id number] [place] [address] 24230- 8457 Apr, Encounter for supervision of normal first in first trimester Z34.01 ; 10 weeks gestation of Z3A.10 ; Other specified disorders of amniotic fluid and membranes, first trimester, not applicable or unspecified O41.8X10 and Other antepartum hemorrhage, first trimester O46.8X1 [place] [address] [place] [address] 18433- 4578 Apr, [place] [address] [place] [id number] [place] [address] 89496- 7896 Apr, Threatened miscarriage in early O20.0 [place] [id number] [place] [address] 83324- 6700 Apr, Screening for deficiency anemia Z13.0 [place] [address] [place] [address] 96412- 9324 Apr, Encounter for supervision of normal first in first trimester Z34.01 [place] [address] [place] [id number] [address] 2546 Apr, [facility] [address] [facility] [id number] [address] 2546 Apr, Encounter for supervision of normal first in first trimester Z34.01 [facility] [address] [place] [id number] [address] 2546 Apr, Encounter for supervision of normal first in first trimester Z34.01 [facility] [address] [place] [id number] [address] 2540 Mar, [facility] [address] [facility] [id number] [address]- 9194 Mar, Encounter for test, result unknown Z32.00 IMMUNIZATIONS No Known Immunizations SOCIAL HISTORY Never Assessed REASON FOR VISIT us result PLAN OF CARE VITAL SIGNS MEDICATIONS Unknown Medications RESULTS No Results PROCEDURES No Known procedures INSTRUCTIONS MEDICATIONS ADMINISTERED No Known Medications MEDICAL (GENERAL) HISTORY Type Description Date Medical History depression and anxiety Surgical History 5 wisdom teeth removed 2014 Surgical History mole removed preteen Hospitalization History Misscarried 07/02 Hospitalization History multiple inpatient psych treatments teens
--- OUTSIDE RECORDS SUMMARY | 2018-02-13 12:49 | XMS REPORT ---
Author Author AYAH SIMS [facility] Address [address] [place] [address] Care Team Providers Care Levee Superintendent Name Role Phone AYAH SIMS Unavailable PROBLEMS Type Condition ICD9-CM Code [id number] Code Onset Dates Condition Status SNOMED Code Problem History of methamphetamine use Z87.898 Active 302703857 Problem Cannabis abuse F12.10 Active 01910589 Problem Methamphetamine use disorder, moderate, 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 Active 71603941 Problem IUFD at less than 20 weeks of gestation O02.1 Active 172524384 Problem Episodic cannabis use F12.90 Active 349049187 Problem Bipolar disorder, unspecified F31.9 Active 01658812 Problem Post-traumatic stress disorder, chronic F43.12 Active 56170427 ALLERGIES No Information ENCOUNTERS Encounter Location Date Diagnosis [place] [address] [place] [address] 47745- 5239 Nov, [place] [address] [place] [address] 05543- 2933 Oct, [place] [address] [place] [address] 17530- 6813 Oct, Post-traumatic stress disorder, chronic F43.12 ; Bipolar disorder, unspecified F31.9 ; Cannabis abuse F12.10 and Methamphetamine use disorder, moderate, 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 [place] [address] [place] [address] 45166- 7507 September, Post-traumatic stress disorder, chronic F43.12 ; Bipolar disorder, unspecified F31.9 ; Cannabis abuse F12.10 and Methamphetamine use disorder, moderate, 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 [place] [address] [place] [address] 96218- 9639 September, Encounter for IUD removal Z30.432 [place] [address] [place] [id number] [place] [address] 73451- 0711 04 Aug, 2017 Post-traumatic stress disorder, chronic F43.12 ; Bipolar disorder, unspecified F31.9 ; Cannabis abuse F12.10 and Methamphetamine use disorder, moderate, 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 [place] [address] [place] [id number] [place] [address] 13459- 6911 03 Aug, 2017 exam Z39.2 and Encounter for IUD insertion Z30.430 [place] [address] [place] [id number] [place] [address] 22350- 9724 13 Jul, 2017 control counseling Z30.09 and IUFD at less than 20 weeks of gestation O02.1 [place] [address] 42084- 2675 Jul, Post-traumatic stress disorder, chronic F43.12 ; Bipolar disorder, unspecified F31.9 ; Cannabis abuse F12.10 and Methamphetamine use disorder, moderate, 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 [place] [address] [place] [id number] [place] [address] 53718- 4191 Jun, Bipolar disorder, unspecified F31.9 and Post-traumatic stress disorder, chronic F43.12 [place] [address] [place] [id number] [place] [address] 01585- 7145 Jun, [place] [address] 73415- 0128 Jun, Severe episode of recurrent major depressive disorder, without psychotic features F33.2 ; Endometritis following delivery O86.12 ; Elevated TSH R94.6 ; IUFD at less than 20 weeks of gestation O02.1 ; Right upper quadrant pain R10.11 and Positive urine drug screen R82.5 [place] [address] [place] [id number] [place] [address] 75064- 8884 20 Jun, 2017 IUFD at less than 20 weeks of gestation O02.1 [place] [address] [place] [address]- 2144 20 Jun, 2017 [place] [address] [place] [id number] [place] [address] 97083- 4779 13 Jun, 2017 care, first in second trimester Z34.02 ; RUQ pain R10.11 and 18 weeks gestation of Z3A.18 [place] [address] [place] [id number] [place] [address] 83331- 5240 16 May, 2017 14 weeks gestation of Z3A.14 and care, first in second trimester Z34.02 [place] [address] [place] [id number] [place] [address] 36177- 0192 11 May, 2017 [place] [address] [place] [id number] [place] [address] 61819- 3433 May, Vaginal bleeding in O46.90 [place] [id number] [place] [address] 34570- 3419 Apr, [place] [address] [place] [id number] [place] [address] 74649- 7379 Apr, Encounter for supervision of normal first in first trimester Z34.01 ; 10 weeks gestation of Z3A.10 ; Other specified disorders of amniotic fluid and membranes, first trimester, not applicable or unspecified O41.8X10 and Other antepartum hemorrhage, first trimester O46.8X1 [place] [address] [place] [address] 56539- 8428 Apr, [place] [address] [place] [id number] [place] [address] 47010- 4208 Apr, Threatened miscarriage in early O20.[address] 94099- 4627 Apr, Screening for deficiency anemia Z13.0 [place] [address] [place] [address] 32731- 8387 Apr, Encounter for supervision of normal first in first trimester Z34.01 [place] [address] [address] 2546 Apr, [facility] [address] [place] [id number] [address] 9259 Apr, Encounter for supervision of normal first in first trimester Z34.01 [facility] [address] [place] [address] [id number] [address] 9513 Apr, Encounter for supervision of normal first in first trimester Z34.01 [facility] [address] [place] [address] [id number] 9133 Mar, [facility] [address] [facility] [id number] [address] [address] Mar, Encounter for test, result unknown Z32.00 IMMUNIZATIONS No Known Immunizations SOCIAL HISTORY Never Assessed REASON FOR VISIT BH/AT phone response PLAN OF CARE VITAL SIGNS MEDICATIONS Unknown Medications RESULTS No Results PROCEDURES No Known procedures INSTRUCTIONS MEDICATIONS ADMINISTERED No Known Medications MEDICAL (GENERAL) HISTORY Type Description Date Medical History depression and anxiety Surgical History 5 wisdom teeth removed 2014 Surgical History mole removed preteen Hospitalization History Misscarried 07/02 Hospitalization History multiple inpatient psych treatments teens
--- OUTSIDE RECORDS SUMMARY | 2018-02-13 12:50 | XMS REPORT ---
Author Author AYAH SIMS [facility] Address [address] [place] [address] Care Team Providers Care Key Entry Operator Name Role Phone AYAH SIMS Unavailable PROBLEMS Type Condition ICD9-CM Code NVT88-CT Code Onset Dates Condition Status SNOMED Code Problem History of methamphetamine use Z87.898 Active 927856756 Problem Cannabis abuse F12.10 Active 86296099 Problem Methamphetamine use disorder, moderate, 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 Active 66250195 Problem IUFD at less than 20 weeks of gestation O02.1 Active 016537517 Problem Episodic cannabis use F12.90 Active 953916433 Problem Bipolar disorder, unspecified F31.9 Active 28917093 Problem Post-traumatic stress disorder, chronic F43.12 Active 59984897 ALLERGIES No Information ENCOUNTERS Encounter Location Date Diagnosis [place] [address] [place] [id number] [place] [address] 51514- 7423 Oct, [place] [address] 15163- 6665 September, Post-traumatic stress disorder, chronic F43.12 ; Bipolar disorder, unspecified F31.9 ; Cannabis abuse F12.10 and Methamphetamine use disorder, moderate, 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 [place] [address] [place] [id number] [place] [address] 27560- 0347 September, Encounter for IUD removal Z30.432 [place] [address] 84761- 7582 Aug, Post-traumatic stress disorder, chronic F43.12 ; Bipolar disorder, unspecified F31.9 ; Cannabis abuse F12.10 and Methamphetamine use disorder, moderate, 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 [place] [address] 25615- 1813 03 Aug, 2017 exam Z39.2 and Encounter for IUD insertion Z30.[address] 01161- 5406 13 Jul, 2017 control counseling Z30.09 and IUFD at less than 20 weeks of gestation O02.[address] 15985- 8047 08 Jul, 2017 Post-traumatic stress disorder, chronic F43.12 ; Bipolar disorder, unspecified F31.9 ; Cannabis abuse F12.10 and Methamphetamine use disorder, moderate, 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 16950- 5353 Jun, Bipolar disorder, unspecified F31.9 and Post-traumatic stress disorder, chronic F43.[address] 78196- 4361 Jun, [address] 75473- 9516 Jun, Severe episode of recurrent major depressive disorder, without psychotic features F33.2 ; Endometritis following delivery O86.12 ; Elevated TSH R94.6 ; IUFD at less than 20 weeks of gestation O02.1 ; Right upper quadrant pain R10.11 and Positive urine drug screen R82.[address] 45629- 7850 Jun, IUFD at less than 20 weeks of gestation O02.1 [place] [address] 46518- 7474 Jun, [address] 16953- 9741 13 Jun, 2017 care, first in second trimester Z34.02 ; RUQ pain R10.11 and 18 weeks gestation of Z3A.[address] 92975- 2000 May, 14 weeks gestation of Z3A.14 and care, first in second trimester Z34.02 [place] [address] [place] [id number] [place] [address] 14477- 5394 May, [place] [address] [place] [id number] [place] [address] 32985- 5993 May, Vaginal bleeding in O46.90 [place] [address] [place] [id number] [place] [address] 91285- 0622 Apr, [place] [address] [place] [id number] [place] [address] 66479- 4999 Apr, Encounter for supervision of normal first in first trimester Z34.01 ; 10 weeks gestation of Z3A.10 ; Other specified disorders of amniotic fluid and membranes, first trimester, not applicable or unspecified O41.8X10 and Other antepartum hemorrhage, first trimester O46.8X1 [place] [address] [place] [id number] [place] [address] 48026- 1707 Apr, [place] [address] [place] [id number] [place] [address] 19955- 9233 Apr, Threatened miscarriage in early O20.0 [place] [address] [place] [id number] [place] [address] 32962- 6466 Apr, Screening for deficiency anemia Z13.0 [place] [address] [place] [id number] [place] [address] 28333- 7059 Apr, Encounter for supervision of normal first in first trimester Z34.01 [place] [address] [place] [id number] [place] [address] 13082- 8594 Apr, [place] [address] [place] [id number] [place] [address] 41102- 7336 Apr, Encounter for supervision of normal first in first trimester Z34.01 [place] [address] [place] [id number] [place] [address] 88630- 4850 Apr, Encounter for supervision of normal first in first trimester Z34.01 [facility] [address] [facility] [id number] [place] [address]- 1917 Mar, [facility] [address] [facility] [id number] [place] [address]- 2432 Mar, Encounter for test, result unknown Z32.00 IMMUNIZATIONS No Known Immunizations SOCIAL HISTORY Never Assessed REASON FOR VISIT OB FU PLAN OF CARE VITAL SIGNS MEDICATIONS Unknown Medications RESULTS No Results PROCEDURES No Known procedures INSTRUCTIONS MEDICATIONS ADMINISTERED No Known Medications MEDICAL (GENERAL) HISTORY Type Description Date Medical History depression and anxiety Surgical History 5 wisdom teeth removed 2014 Surgical History mole removed preteen Hospitalization History Misscarried 07/02 Hospitalization History multiple inpatient psych treatments teens
--- OUTSIDE RECORDS SUMMARY | 2018-02-13 12:50 | XMS REPORT ---
Author Author AYAH SIMS [facility] Address [address] [place] [address] Care Team Providers Care Funeral Home Makeup Artist Name Role Phone AYAH SIMS Unavailable PROBLEMS Type Condition ICD9-CM Code SDB58-FO Code Onset Dates Condition Status SNOMED Code Problem History of methamphetamine use Z87.898 Active 523515702 Problem Cannabis abuse F12.10 Active 28571052 Problem Methamphetamine use disorder, moderate, 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 Active 36030598 Problem IUFD at less than 20 weeks of gestation O02.1 Active 385071608 Problem Episodic cannabis use F12.90 Active 848822476 Problem Bipolar disorder, unspecified F31.9 Active 99928891 Problem Post-traumatic stress disorder, chronic F43.12 Active 78288697 ALLERGIES Substance Reaction Event Type Date Status Clonidine HCl Unknown Drug Allergy Apr, Active Amoxicillin Unknown Drug Allergy Apr, Active ENCOUNTERS Encounter Location Date Diagnosis [place] [address] [place] [address] 31622- 9766 Oct, [place] [address] [place] [id number] [place] [address] 25666- 3480 September, Post-traumatic stress disorder, chronic F43.12 ; Bipolar disorder, unspecified F31.9 ; Cannabis abuse F12.10 and Methamphetamine use disorder, moderate, 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 [place] [address] [place] [address] 85402- 4575 September, Encounter for IUD removal Z30.432 [place] [address] [place] [address] 62691- 8000 Aug, Post-traumatic stress disorder, chronic F43.12 ; Bipolar disorder, unspecified F31.9 ; Cannabis abuse F12.10 and Methamphetamine use disorder, moderate, 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 [place] [address] [place] [id number] [place] [address] 23368- 2641 03 Aug, 2017 exam Z39.2 and Encounter for IUD insertion Z30.430 [place] [address] 23880- 6012 13 Jul, 2017 control counseling Z30.09 and IUFD at less than 20 weeks of gestation O02.1 [place] [address] 58956- 0933 08 Jul, 2017 Post-traumatic stress disorder, chronic F43.12 ; Bipolar disorder, unspecified F31.9 ; Cannabis abuse F12.10 and Methamphetamine use disorder, moderate, 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 [place] [address] 85395- 9901 27 Jun, 2017 Bipolar disorder, unspecified F31.9 and Post-traumatic stress disorder, chronic F43.12 [place] [address] 68595- 9457 27 Jun, [address] 21894- 5420 27 Jun, 2017 Severe episode of recurrent major depressive disorder, without psychotic features F33.2 ; Endometritis following delivery O86.12 ; Elevated TSH R94.6 ; IUFD at less than 20 weeks of gestation O02.1 ; Right upper quadrant pain R10.11 and Positive urine drug screen R82.5 [place] [address] [place] [id number] [place] [address] 17543- 1528 Jun, IUFD at less than 20 weeks of gestation O02.[address] 46221- 5052 Jun, [address] 69991- 2294 13 Jun, 2017 care, first in second trimester Z34.02 ; RUQ pain R10.11 and 18 weeks gestation of Z3A.18 [place] [address] [place] [id number] [place] [address] 41940- 8635 May, 14 weeks gestation of Z3A.14 and care, first in second trimester Z34.02 [place] [address] [place] [id number] [place] [address] 25643- 9256 May, [place] [address] [place] [id number] [place] [address] 78420- 0599 May, Vaginal bleeding in O46.90 [place] [address] [place] [id number] [place] [address] 99484- 9478 Apr, [place] [address] 62197- 1570 Apr, Encounter for supervision of normal first in first trimester Z34.01 ; 10 weeks gestation of Z3A.10 ; Other specified disorders of amniotic fluid and membranes, first trimester, not applicable or unspecified O41.8X10 and Other antepartum hemorrhage, first trimester O46.8X1 [place] [address] [place] [id number] [place] [address] 60708- 5014 Apr, [place] [address] [place] [id number] [place] [address] 93383- 6689 Apr, Threatened miscarriage in early O20.0 [place] [address] [place] [id number] [place] [address] 25968- 3597 Apr, Screening for deficiency anemia Z13.0 [place] [address] [place] [id number] [place] [address] 19635- 2533 Apr, Encounter for supervision of normal first in first trimester Z34.01 [place] [address] [place] [id number] [place] [address] 38697- 4788 Apr, [place] [address] [place] [id number] [place] [address] 71524- 2571 Apr, Encounter for supervision of normal first in first trimester Z34.01 [place] [address] [place] [address]- 4753 Apr, Encounter for supervision of normal first in first trimester Z34.01 [facility] [address] [facility] [id number] [address]- 2832 Mar, [facility] [address] [facility] [id number] [address]- 4322 Mar, Encounter for test, result unknown Z32.00 IMMUNIZATIONS No Known Immunizations SOCIAL HISTORY Never Assessed REASON FOR VISIT OB-intake -- kadeem don, having nauseas all day PLAN OF CARE Activity Details Follow Up 4 Weeks, 4 Weeks Reason: VITAL SIGNS Height 5'7" in 2017-05-02 Weight 139.0 lbs 2017-05-02 Temperature 97.8 degrees Fahrenheit 2017-05-02 BMI 21.77 kg/m2 2017-05-02 Blood pressure systolic 118 mmHg 2017-05-02 Blood pressure diastolic 70 mmHg 2017-05-02 MEDICATIONS Medication Instructions Dosage Frequency Start Date End Date Duration Status Vitamin Active Vol-Care Rx 1 MG Orally Once a day 1 tablet 24h Apr, 30 day(s) Active RESULTS No Results PROCEDURES Procedure Date Ordered Result Body Site URINE-NO MICRO May 02, 2017 No Charge May 02, 2017 CULTURE, BACTERIA, OTHER May 02, 2017 Bacterial Vaginosis In House May 02, 2017 TRICHOMONAS ASSAY W/OPTIC May 02, 2017 INSTRUCTIONS MEDICATIONS ADMINISTERED No Known Medications MEDICAL (GENERAL) HISTORY Type Description Date Medical History depression and anxiety Surgical History 5 wisdom teeth removed 2014 Surgical History mole removed preteen Hospitalization History Misscarried 07/02 Hospitalization History multiple inpatient psych treatments teens
--- OUTSIDE RECORDS SUMMARY | 2018-02-13 12:50 | XMS REPORT ---
Author Author AYAH SIMS [facility] Address [address] [place] [address] Care Team Providers Care Cattle Sticker Name Role Phone AYAH SIMS Unavailable PROBLEMS Type Condition ICD9-CM Code NOP57-BZ Code Onset Dates Condition Status SNOMED Code Problem History of methamphetamine use Z87.898 Active 317539771 Problem Cannabis abuse F12.10 Active 34077429 Problem Methamphetamine use disorder, moderate, 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 Active 44114558 Problem IUFD at less than 20 weeks of gestation O02.1 Active 866756406 Problem Episodic cannabis use F12.90 Active 125094742 Problem Bipolar disorder, unspecified F31.9 Active 99802091 Problem Post-traumatic stress disorder, chronic F43.12 Active 71363267 ALLERGIES No Information ENCOUNTERS Encounter Location Date Diagnosis [place] [address] [place] [id number] [place] [address] 59009- 9284 Oct, [place] [address] 77931- 3271 September, Post-traumatic stress disorder, chronic F43.12 ; Bipolar disorder, unspecified F31.9 ; Cannabis abuse F12.10 and Methamphetamine use disorder, moderate, 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 [place] [address] [place] [id number] [place] [address] 91670- 9877 September, Encounter for IUD removal Z30.432 [place] [address] 34916- 9358 Aug, Post-traumatic stress disorder, chronic F43.12 ; Bipolar disorder, unspecified F31.9 ; Cannabis abuse F12.10 and Methamphetamine use disorder, moderate, 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 [place] [address] 45609- 4526 03 Aug, 2017 exam Z39.2 and Encounter for IUD insertion Z30.[address] 41151- 7955 13 Jul, 2017 control counseling Z30.09 and IUFD at less than 20 weeks of gestation O02.[address] 80487- 9574 08 Jul, 2017 Post-traumatic stress disorder, chronic F43.12 ; Bipolar disorder, unspecified F31.9 ; Cannabis abuse F12.10 and Methamphetamine use disorder, moderate, 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 37768- 8402 Jun, Bipolar disorder, unspecified F31.9 and Post-traumatic stress disorder, chronic F43.[address] 41678- 1555 Jun, [address] 45465- 7208 Jun, Severe episode of recurrent major depressive disorder, without psychotic features F33.2 ; Endometritis following delivery O86.12 ; Elevated TSH R94.6 ; IUFD at less than 20 weeks of gestation O02.1 ; Right upper quadrant pain R10.11 and Positive urine drug screen R82.[address] 21450- 9346 Jun, IUFD at less than 20 weeks of gestation O02.1 [place] [address] 38373- 0404 Jun, [address] 00722- 8735 13 Jun, 2017 care, first in second trimester Z34.02 ; RUQ pain R10.11 and 18 weeks gestation of Z3A.[address] 09080- 3098 May, 14 weeks gestation of Z3A.14 and care, first in second trimester Z34.02 [place] [address] [place] [id number] [place] [address] 60936- 3909 May, [place] [address] [place] [id number] [place] [address] 25098- 1680 May, Vaginal bleeding in O46.90 [place] [address] [place] [id number] [place] [address] 73942- 9570 Apr, [place] [address] [place] [id number] [place] [address] 81604- 1676 Apr, Encounter for supervision of normal first in first trimester Z34.01 ; 10 weeks gestation of Z3A.10 ; Other specified disorders of amniotic fluid and membranes, first trimester, not applicable or unspecified O41.8X10 and Other antepartum hemorrhage, first trimester O46.8X1 [place] [address] [place] [id number] [place] [address] 84837- 4187 Apr, [place] [address] [place] [id number] [place] [address] 89781- 9306 Apr, Threatened miscarriage in early O20.0 [place] [address] [place] [id number] [place] [address] 05265- 3635 Apr, Screening for deficiency anemia Z13.0 [place] [address] [place] [id number] [place] [address] 10115- 9574 Apr, Encounter for supervision of normal first in first trimester Z34.01 [place] [address] [place] [id number] [place] [address] 39406- 2563 Apr, [place] [address] [place] [id number] [place] [address] 82388- 0281 Apr, Encounter for supervision of normal first in first trimester Z34.01 [place] [address] [place] [id number] [place] [address] 06217- 1583 Apr, Encounter for supervision of normal first in first trimester Z34.01 [facility] [address] [facility] [id number] [place] [address]- 2017 Mar, [facility] [address] [facility] [id number] [place] [address]- 6745 Mar, Encounter for test, result unknown Z32.00 IMMUNIZATIONS No Known Immunizations SOCIAL HISTORY Never Assessed REASON FOR VISIT Lab (walk-in) PLAN OF CARE VITAL SIGNS MEDICATIONS Unknown Medications RESULTS No Results PROCEDURES Procedure Date Ordered Result Body Site URINALYSIS, AUTO, W/O SCOPE Apr 20, 2017 VENIPUNCT, ROUTINE* Apr 20, 2017 ASSAY THYROID STIM HORMONE Apr 20, 2017 COMPLETE CBC W/AUTO DIFF WBC Apr 20, 2017 URINE CULTURE/COLONY COUNT Apr 20, 2017 RBC ANTIBODY SCREEN Apr 20, 2017 DRUG TEST PRSMV DIR OPT OBS Apr 20, 2017 No Charge Apr 20, 2017 RUBELLA ANTIBODY Apr 20, 2017 BLOOD TYPING, ABO Apr 20, 2017 BLOOD TYPING, RH (D) Apr 20, 2017 INSTRUCTIONS MEDICATIONS ADMINISTERED No Known Medications MEDICAL (GENERAL) HISTORY Type Description Date Medical History depression and anxiety Surgical History 5 wisdom teeth removed 2014 Surgical History mole removed preteen Hospitalization History Misscarried 07/02 Hospitalization History multiple inpatient psych treatments teens
--- OUTSIDE RECORDS SUMMARY | 2018-02-13 12:50 | XMS REPORT ---
Author Author AYAH SIMS [facility] Address [address] [place] [address] Care Team Providers Care Manager Information Name Role Phone AYAH SIMS Unavailable PROBLEMS Type Condition ICD9-CM Code HGU50-UT Code Onset Dates Condition Status SNOMED Code Problem History of methamphetamine use Z87.898 Active 795657634 Problem Cannabis abuse F12.10 Active 18783638 Problem Methamphetamine use disorder, moderate, 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 Active 49565352 Problem IUFD at less than 20 weeks of gestation O02.1 Active 504292077 Problem Episodic cannabis use F12.90 Active 856099003 Problem Bipolar disorder, unspecified F31.9 Active 92295574 Problem Post-traumatic stress disorder, chronic F43.12 Active 37484507 ALLERGIES No Information ENCOUNTERS Encounter Location Date Diagnosis [place] [address] [id number] [place] [address] 16974- 9705 Oct, [place] [address] 84381- 56[address] September, Post-traumatic stress disorder, chronic F43.12 ; Bipolar disorder, unspecified F31.9 ; Cannabis abuse F12.10 and Methamphetamine use disorder, moderate, 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 [place] [id number] [place] [address] 93518- 2978 September, Encounter for IUD removal Z30.432 [place] [address] 00068- 0111 Aug, Post-traumatic stress disorder, chronic F43.12 ; Bipolar disorder, unspecified F31.9 ; Cannabis abuse F12.10 and Methamphetamine use disorder, moderate, 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 [place] [address] 38771- 6194 03 Aug, 2017 exam Z39.2 and Encounter for IUD insertion Z30.[address] 56043- 2085 13 Jul, 2017 control counseling Z30.09 and IUFD at less than 20 weeks of gestation O02.[address] 02157- 3904 08 Jul, 2017 Post-traumatic stress disorder, chronic F43.12 ; Bipolar disorder, unspecified F31.9 ; Cannabis abuse F12.10 and Methamphetamine use disorder, moderate, 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 18278- 7362 Jun, Bipolar disorder, unspecified F31.9 and Post-traumatic stress disorder, chronic F43.[address] 78869- 7935 Jun, [address] 87630- 8925 Jun, Severe episode of recurrent major depressive disorder, without psychotic features F33.2 ; Endometritis following delivery O86.12 ; Elevated TSH R94.6 ; IUFD at less than 20 weeks of gestation O02.1 ; Right upper quadrant pain R10.11 and Positive urine drug screen R82.[address] 92456- 3917 Jun, IUFD at less than 20 weeks of gestation O02.1 [place] [address] 40021- 9380 Jun, [address] 54840- 0685 13 Jun, 2017 care, first in second trimester Z34.02 ; RUQ pain R10.11 and 18 weeks gestation of Z3A.[address] 24115- 2111 May, 14 weeks gestation of Z3A.14 and care, first in second trimester Z34.02 [place] [id number] [place] [address] 34683- 7321 May, [place] [id number] [place] [address] 45794- 8613 May, Vaginal bleeding in O46.90 [place] [id number] [place] [address] 88082- 8841 Apr, [place] [id number] [place] [address] 22225- 5439 Apr, Encounter for supervision of normal first in first trimester Z34.01 ; 10 weeks gestation of Z3A.10 ; Other specified disorders of amniotic fluid and membranes, first trimester, not applicable or unspecified O41.8X10 and Other antepartum hemorrhage, first trimester O46.8X1 [place] [id number] [place] [address] 82808- 6472 Apr, [place] [id number] [place] [address] 12535- 2602 Apr, Threatened miscarriage in early O20.0 [place] [id number] [place] [address] 00342- 9856 Apr, Screening for deficiency anemia Z13.0 [place] [id number] [place] [address] 64766- 5306 Apr, Encounter for supervision of normal first in first trimester Z34.01 [place] [id number] [place] [address] 12833- 7787 Apr, [place] [id number] [place] [address] 93379- 5528 Apr, Encounter for supervision of normal first in first trimester Z34.01 [place] [id number] [place] [address] 59774- 9016 Apr, Encounter for supervision of normal first in first trimester Z34.01 [facility] [address] [facility] [id number] [place] [address]- 8755 Mar, [facility] [address] [facility] [id number] [place] [address]- [address] Mar, Encounter for test, result unknown Z32.00 IMMUNIZATIONS No Known Immunizations SOCIAL HISTORY Never Assessed REASON FOR VISIT Patient Concerns PLAN OF CARE VITAL SIGNS MEDICATIONS Unknown Medications RESULTS No Results PROCEDURES No Known procedures INSTRUCTIONS MEDICATIONS ADMINISTERED No Known Medications MEDICAL (GENERAL) HISTORY Type Description Date Medical History depression and anxiety Surgical History 5 wisdom teeth removed 2014 Surgical History mole removed preteen Hospitalization History Misscarried 07/02 Hospitalization History multiple inpatient psych treatments teens
--- OUTSIDE RECORDS SUMMARY | 2018-02-13 12:50 | XMS REPORT ---
Author Author AYAH SIMS [facility] Address [address] [place] [address] Care Team Providers Care Loan Expeditor Name Role Phone AYAH SIMS Unavailable PROBLEMS Type Condition ICD9-CM Code SZF47-SW Code Onset Dates Condition Status SNOMED Code Problem History of methamphetamine use Z87.898 Active 693004523 Problem Cannabis abuse F12.10 Active 49387981 Problem Methamphetamine use disorder, moderate, 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 Active 67526444 Problem IUFD at less than 20 weeks of gestation O02.1 Active 894537948 Problem Episodic cannabis use F12.90 Active 729721440 Problem Bipolar disorder, unspecified F31.9 Active 43319543 Problem Post-traumatic stress disorder, chronic F43.12 Active 61758268 ALLERGIES No Information ENCOUNTERS Encounter Location Date Diagnosis [place] [address] [place] [address] 48929- 3109 Nov, [place] [address] [place] [address] 74828- 3533 Oct, [place] [address] [place] [address] 10355- 8792 Oct, Post-traumatic stress disorder, chronic F43.12 ; Bipolar disorder, unspecified F31.9 ; Cannabis abuse F12.10 and Methamphetamine use disorder, moderate, 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 [place] [address] [place] [address] 06934- 4941 September, Post-traumatic stress disorder, chronic F43.12 ; Bipolar disorder, unspecified F31.9 ; Cannabis abuse F12.10 and Methamphetamine use disorder, moderate, 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 [place] [address] [place] [address] 54348- 2284 September, Encounter for IUD removal Z30.432 [place] [address] [address] [id number] [place] [address] 44642- 6649 04 Aug, 2017 Post-traumatic stress disorder, chronic F43.12 ; Bipolar disorder, unspecified F31.9 ; Cannabis abuse F12.10 and Methamphetamine use disorder, moderate, 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 [place] [address] [address] [id number] [place] [address] 60815- 7563 03 Aug, 2017 exam Z39.2 and Encounter for IUD insertion Z30.430 [place] [address] [id number] [place] [address] 52085- 7351 13 Jul, 2017 control counseling Z30.09 and IUFD at less than 20 weeks of gestation O02.1 [place] [address] 13591- 3321 Jul, Post-traumatic stress disorder, chronic F43.12 ; Bipolar disorder, unspecified F31.9 ; Cannabis abuse F12.10 and Methamphetamine use disorder, moderate, 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 [place] [address] [address] [id number] [place] [address] 67781- 0466 Jun, Bipolar disorder, unspecified F31.9 and Post-traumatic stress disorder, chronic F43.12 [place] [address] [address] [id number] [place] [address] 92708- 4246 Jun, [place] [address] 87385- 5306 Jun, Severe episode of recurrent major depressive disorder, without psychotic features F33.2 ; Endometritis following delivery O86.12 ; Elevated TSH R94.6 ; IUFD at less than 20 weeks of gestation O02.1 ; Right upper quadrant pain R10.11 and Positive urine drug screen R82.5 [place] [address] [id number] [place] [address] 45109- 8975 20 Jun, 2017 IUFD at less than 20 weeks of gestation O02.1 [place] [address] [place] [address]- 0790 20 Jun, 2017 [place] [address] [address] [id number] [place] [address] 65328- 5998 13 Jun, 2017 care, first in second trimester Z34.02 ; RUQ pain R10.11 and 18 weeks gestation of Z3A.18 [place] [address] [id number] [place] [address] 54997- 9923 16 May, 2017 14 weeks gestation of Z3A.14 and care, first in second trimester Z34.02 [place] [address] [id number] [place] [address] 69556- 2776 11 May, 2017 [place] [address] [id number] [place] [address] 60063- 2705 May, Vaginal bleeding in O46.90 [place] [id number] [place] [address] 16528- 4623 Apr, [place] [address] [address] [id number] [place] [address] 36413- 9877 Apr, Encounter for supervision of normal first in first trimester Z34.01 ; 10 weeks gestation of Z3A.10 ; Other specified disorders of amniotic fluid and membranes, first trimester, not applicable or unspecified O41.8X10 and Other antepartum hemorrhage, first trimester O46.8X1 [place] [address] [place] [address] 01121- 3850 Apr, [place] [address] [place] [address] [id number] [place] [address] 96577- 5204 Apr, Threatened miscarriage in early O20.[address] 36460- 5444 Apr, Screening for deficiency anemia Z13.0 [place] [address] [place] [address] 00215- 9502 Apr, Encounter for supervision of normal first in first trimester Z34.01 [place] [address] [address] 2546 Apr, [facility] [address] [place] [address] [id number] [address]702 Apr, Encounter for supervision of normal first in first trimester Z34.01 [facility] [address] [place] [id number] 0836 Apr, Encounter for supervision of normal first in first trimester Z34.01 [facility] [address] [place] [address] [id number] [address]- 3191 Mar, [facility] [address] [place] [id number] [address]- 1469 Mar, Encounter for test, result unknown Z32.00 IMMUNIZATIONS No Known Immunizations SOCIAL HISTORY Never Assessed REASON FOR VISIT Ultrasound f/marielle Miller RN PLAN OF CARE Activity Details Follow Up After delivery Reason: VITAL SIGNS MEDICATIONS Unknown Medications RESULTS No Results PROCEDURES No Known procedures INSTRUCTIONS MEDICATIONS ADMINISTERED No Known Medications MEDICAL (GENERAL) HISTORY Type Description Date Medical History depression and anxiety Surgical History 5 wisdom teeth removed 2014 Surgical History mole removed preteen Hospitalization History Misscarried 07/02 Hospitalization History multiple inpatient psych treatments teens
--- OUTSIDE RECORDS SUMMARY | 2018-02-13 12:50 | XMS REPORT ---
Author Author AYAH SIMS [facility] Address [address] [place] [address] Care Team Providers Care Integrated Marketing Manager Name Role Phone AYAH SIMS Unavailable PROBLEMS Type Condition ICD9-CM Code AMF16-NB Code Onset Dates Condition Status SNOMED Code Problem History of methamphetamine use Z87.898 Active 731524932 Problem Cannabis abuse F12.10 Active 44062907 Problem Methamphetamine use disorder, moderate, 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 Active 94292551 Problem IUFD at less than 20 weeks of gestation O02.1 Active 484842364 Problem Episodic cannabis use F12.90 Active 552753364 Problem Bipolar disorder, unspecified F31.9 Active 82191930 Problem Post-traumatic stress disorder, chronic F43.12 Active 13717995 ALLERGIES No Information ENCOUNTERS Encounter Location Date Diagnosis [place] [address] [place] [address] 84969- 8504 Nov, [place] [address] [place] [address] 50921- 7899 Oct, [place] [address] [place] [address] 70893- 4571 Oct, Post-traumatic stress disorder, chronic F43.12 ; Bipolar disorder, unspecified F31.9 ; Cannabis abuse F12.10 and Methamphetamine use disorder, moderate, 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 [place] [address] [place] [address] 86418- 5948 September, Post-traumatic stress disorder, chronic F43.12 ; Bipolar disorder, unspecified F31.9 ; Cannabis abuse F12.10 and Methamphetamine use disorder, moderate, 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 [place] [address] [place] [address] 90306- 8658 September, Encounter for IUD removal Z30.432 [place] [address] [place] [id number] [place] [address] 81965- 4256 04 Aug, 2017 Post-traumatic stress disorder, chronic F43.12 ; Bipolar disorder, unspecified F31.9 ; Cannabis abuse F12.10 and Methamphetamine use disorder, moderate, 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 [place] [address] [place] [address] [id number] [place] [address] 25537- 5987 03 Aug, 2017 exam Z39.2 and Encounter for IUD insertion Z30.430 [place] [address] [place] [address] [id number] [place] [address] 31025- 6746 13 Jul, 2017 control counseling Z30.09 and IUFD at less than 20 weeks of gestation O02.1 [place] [address] 97140- 2823 Jul, Post-traumatic stress disorder, chronic F43.12 ; Bipolar disorder, unspecified F31.9 ; Cannabis abuse F12.10 and Methamphetamine use disorder, moderate, 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 [place] [address] [place] [id number] [place] [address] 63867- 2303 Jun, Bipolar disorder, unspecified F31.9 and Post-traumatic stress disorder, chronic F43.12 [place] [address] [place] [id number] [place] [address] 77222- 6598 Jun, [place] [address] 18726- 7334 Jun, Severe episode of recurrent major depressive disorder, without psychotic features F33.2 ; Endometritis following delivery O86.12 ; Elevated TSH R94.6 ; IUFD at less than 20 weeks of gestation O02.1 ; Right upper quadrant pain R10.11 and Positive urine drug screen R82.5 [place] [address] [place] [address] [id number] [place] [address] 33515- 1737 20 Jun, 2017 IUFD at less than 20 weeks of gestation O02.1 [place] [address] [place] [address]- 6132 20 Jun, 2017 [place] [address] [place] [address] [id number] [place] [address] 16439- 1350 13 Jun, 2017 care, first in second trimester Z34.02 ; RUQ pain R10.11 and 18 weeks gestation of Z3A.18 [place] [id number] [place] [address] 32610- 4692 16 May, 2017 14 weeks gestation of Z3A.14 and care, first in second trimester Z34.02 [place] [address] [place] [id number] [place] [address] 35122- 7575 11 May, 2017 [place] [address] [place] [id number] [place] [address] 87961- 8698 May, Vaginal bleeding in O46.90 [place] [id number] [place] [address] 89409- 4207 Apr, [place] [address] [place] [id number] [place] [address] 86377- 8234 Apr, Encounter for supervision of normal first in first trimester Z34.01 ; 10 weeks gestation of Z3A.10 ; Other specified disorders of amniotic fluid and membranes, first trimester, not applicable or unspecified O41.8X10 and Other antepartum hemorrhage, first trimester O46.8X1 [place] [address] [place] [address] 44524- 4355 Apr, [place] [address] [id number] [place] [address] 16591- 3858 Apr, Threatened miscarriage in early O20.[address] 43109- 3345 Apr, Screening for deficiency anemia Z13.0 [place] [address] [place] [address] 09825- 4019 Apr, Encounter for supervision of normal first in first trimester Z34.01 [place] [address], [place] [address] 2546 Apr, [facility] [address] [place] [id number] 3555 Apr, Encounter for supervision of normal first in first trimester Z34.01 [facility] [address] [id number] [address]- 1629 Apr, Encounter for supervision of normal first in first trimester Z34.01 [facility] [address] [place] [id number] 0637 Mar, [facility] [address] [place] [address] [id number] [address]- 5165 Mar, Encounter for test, result unknown Z32.00 IMMUNIZATIONS No Known Immunizations SOCIAL HISTORY Never Assessed REASON FOR VISIT [facility] PLAN OF CARE VITAL SIGNS MEDICATIONS Unknown Medications RESULTS No Results PROCEDURES No Known procedures INSTRUCTIONS MEDICATIONS ADMINISTERED No Known Medications MEDICAL (GENERAL) HISTORY Type Description Date Medical History depression and anxiety Surgical History 5 wisdom teeth removed 2014 Surgical History mole removed preteen Hospitalization History Misscarried 07/02 Hospitalization History multiple inpatient psych treatments teens
--- OUTSIDE RECORDS SUMMARY | 2018-02-13 12:51 | XMS REPORT ---
Author Author AYAH SIMS [facility] Address [address] [place] [address] Care Team Providers Care Laminating Press Operator Name Role Phone AYAH SIMS Unavailable PROBLEMS Type Condition ICD9-CM Code FWW88-MT Code Onset Dates Condition Status SNOMED Code Problem History of methamphetamine use Z87.898 Active 212415839 Problem Cannabis abuse F12.10 Active 43335312 Problem Methamphetamine use disorder, moderate, 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 Active 57310869 Problem IUFD at less than 20 weeks of gestation O02.1 Active 915397198 Problem Episodic cannabis use F12.90 Active 122807157 Problem Bipolar disorder, unspecified F31.9 Active 93799522 Problem Post-traumatic stress disorder, chronic F43.12 Active 52895219 ALLERGIES Substance Reaction Event Type Date Status Clonidine HCl Unknown Drug Allergy Mar, Active Amoxicillin Unknown Drug Allergy Mar, Active ENCOUNTERS Encounter Location Date Diagnosis [place] [address] [place] [address] 87289- 3775 Oct, [place] [address] [place] [id number] [place] [address] 10664- 2227 September, Post-traumatic stress disorder, chronic F43.12 ; Bipolar disorder, unspecified F31.9 ; Cannabis abuse F12.10 and Methamphetamine use disorder, moderate, 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 [facility] [address] [place] [address] 87827- 9215 September, Encounter for IUD removal Z30.432 [place] [address] [place] [address] 29002- 6415 Aug, Post-traumatic stress disorder, chronic F43.12 ; Bipolar disorder, unspecified F31.9 ; Cannabis abuse F12.10 and Methamphetamine use disorder, moderate, 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 [place] [address] [place] [id number] [place] [address] 24778- 7256 03 Aug, 2017 exam Z39.2 and Encounter for IUD insertion Z30.430 [place] [address] 68948- 0584 13 Jul, 2017 control counseling Z30.09 and IUFD at less than 20 weeks of gestation O02.1 [place] [address] 36478- 6816 08 Jul, 2017 Post-traumatic stress disorder, chronic F43.12 ; Bipolar disorder, unspecified F31.9 ; Cannabis abuse F12.10 and Methamphetamine use disorder, moderate, 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 [place] [address] 19064- 4090 27 Jun, 2017 Bipolar disorder, unspecified F31.9 and Post-traumatic stress disorder, chronic F43.12 [place] [address] 05596- 7304 27 Jun, [address] 68664- 2479 27 Jun, 2017 Severe episode of recurrent major depressive disorder, without psychotic features F33.2 ; Endometritis following delivery O86.12 ; Elevated TSH R94.6 ; IUFD at less than 20 weeks of gestation O02.1 ; Right upper quadrant pain R10.11 and Positive urine drug screen R82.5 [place] [address] [place] [id number] [place] [address] 31252- 6597 Jun, IUFD at less than 20 weeks of gestation O02.[address] 48353- 2805 Jun, [address] 85199- 7168 13 Jun, 2017 care, first in second trimester Z34.02 ; RUQ pain R10.11 and 18 weeks gestation of Z3A.18 [place] [address] [place] [id number] [place] [address] 72872- 6115 May, 14 weeks gestation of Z3A.14 and care, first in second trimester Z34.02 [place] [address] [place] [id number] [place] [address] 29239- 7733 May, [place] [address] [place] [id number] [place] [address] 26480- 9604 May, Vaginal bleeding in O46.90 [place] [address] [place] [id number] [place] [address] 13881- 4766 Apr, [place] [address] 48419- 7331 Apr, Encounter for supervision of normal first in first trimester Z34.01 ; 10 weeks gestation of Z3A.10 ; Other specified disorders of amniotic fluid and membranes, first trimester, not applicable or unspecified O41.8X10 and Other antepartum hemorrhage, first trimester O46.8X1 [place] [address] [place] [id number] [place] [address] 40080- 0989 Apr, [place] [address] [place] [id number] [place] [address] 59234- 4420 Apr, Threatened miscarriage in early O20.0 [place] [address] [place] [id number] [place] [address] 57042- 3845 Apr, Screening for deficiency anemia Z13.0 [place] [address] [place] [id number] [place] [address] 72557- 4179 Apr, Encounter for supervision of normal first in first trimester Z34.01 [place] [address] [place] [id number] [place] [address] 11698- 2950 Apr, [place] [address] [place] [id number] [place] [address] 81484- 5049 Apr, Encounter for supervision of normal first in first trimester Z34.01 [place] [address] [place] [address]- 7072 Apr, Encounter for supervision of normal first in first trimester Z34.01 [facility] [address] [facility] [id number] [address]- 1230 Mar, [facility] [address] [facility] [id number] [address]- 8735 Mar, Encounter for test, result unknown Z32.00 IMMUNIZATIONS No Known Immunizations SOCIAL HISTORY Never Assessed REASON FOR VISIT INTAKE PLAN OF CARE VITAL SIGNS MEDICATIONS Medication Instructions Dosage Frequency Start Date End Date Duration Status Vitamin Active RESULTS No Results PROCEDURES No Known procedures INSTRUCTIONS MEDICATIONS ADMINISTERED No Known Medications MEDICAL (GENERAL) HISTORY Type Description Date Medical History depression and anxiety Surgical History 5 wisdom teeth removed 2014 Surgical History mole removed preteen Hospitalization History Misscarried 07/02 Hospitalization History multiple inpatient psych treatments teens
--- OUTSIDE RECORDS SUMMARY | 2018-02-13 12:51 | XMS REPORT ---
Author Author GERHARD RONQUILLO [facility] Address [address] [place] [address] Care Team Providers Care Library Sales Consultant Name Role Phone GERHARD RONQUILLO Unavailable PROBLEMS Type Condition ICD9-CM Code XPL30-UI Code Onset Dates Condition Status SNOMED Code Problem History of methamphetamine use Z87.898 Active 430599610 Problem Cannabis abuse F12.10 Active 77994719 Problem Methamphetamine use disorder, moderate, 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 Active 71812105 Problem IUFD at less than 20 weeks of gestation O02.1 Active 064368540 Problem Episodic cannabis use F12.90 Active 176546470 Problem Bipolar disorder, unspecified F31.9 Active 97586672 Problem Post-traumatic stress disorder, chronic F43.12 Active 83763209 ALLERGIES No Information ENCOUNTERS Encounter Location Date Diagnosis [place] [id number] [place] [address] 95204- 7289 Oct, [place] [id number] [place] [address] 40089- 2838 September, Post-traumatic stress disorder, chronic F43.12 ; Bipolar disorder, unspecified F31.9 ; Cannabis abuse F12.10 and Methamphetamine use disorder, moderate, 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 [place] [id number] [place] [address] 05526- 9956 September, Encounter for IUD removal Z30.432 [place] [id number] [place] [address] 42116- 7907 Aug, Post-traumatic stress disorder, chronic F43.12 ; Bipolar disorder, unspecified F31.9 ; Cannabis abuse F12.10 and Methamphetamine use disorder, moderate, 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 [place] [id number] [place] [address] 70297- 0705 Aug, exam Z39.2 and Encounter for IUD insertion Z30.430 [place] [id number] [place] [address] 17505- 5804 13 Jul, 2017 control counseling Z30.09 and IUFD at less than 20 weeks of gestation O02.1 [place] [address] 90269- 9518 08 Jul, 2017 Post-traumatic stress disorder, chronic F43.12 ; Bipolar disorder, unspecified F31.9 ; Cannabis abuse F12.10 and Methamphetamine use disorder, moderate, 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 13113- 6636 Jun, Bipolar disorder, unspecified F31.9 and Post-traumatic stress disorder, chronic F43.[address] 05003- 1991 Jun, [place] [address] 31870- 1952 27 Jun, 2017 Severe episode of recurrent major depressive disorder, without psychotic features F33.2 ; Endometritis following delivery O86.12 ; Elevated TSH R94.6 ; IUFD at less than 20 weeks of gestation O02.1 ; Right upper quadrant pain R10.11 and Positive urine drug screen R82.5 [place] [id number] [place] [address] 14216- 5200 Jun, IUFD at less than 20 weeks of gestation O02.1 [place] [id number] [place] [address] 41872- 0426 Jun, [address] 6[address]30- 9309 13 Jun, 2017 care, first in second trimester Z34.02 ; RUQ pain R10.11 and 18 weeks gestation of Z3A.[address] 57662- 8166 May, 14 weeks gestation of Z3A.14 and care, first in second trimester Z34.02 [place] [id number] [place] [address] 04384- 7414 May, [place] [id number] [place] [address] 83426- 2853 May, Vaginal bleeding in O46.90 [place] [id number] [place] [address] 16651- 1764 Apr, [place] [id number] [place] [address] 35107- 8783 Apr, Encounter for supervision of normal first in first trimester Z34.01 ; 10 weeks gestation of Z3A.10 ; Other specified disorders of amniotic fluid and membranes, first trimester, not applicable or unspecified O41.8X10 and Other antepartum hemorrhage, first trimester O46.8X1 [place] [id number] [place] [address] 35048- 4278 Apr, [place] [id number] [place] [address] 01405- 9079 Apr, Threatened miscarriage in early O20.0 [place] [id number] [place] [address] 23956- 5491 Apr, Screening for deficiency anemia Z13.0 [place] [id number] [place] [address] 01998- 7948 Apr, Encounter for supervision of normal first in first trimester Z34.01 [place] [id number] [place] [address] 44353- 7377 Apr, [place] [id number] [place] [address] 78889- 3071 Apr, Encounter for supervision of normal first in first trimester Z34.01 [place] [id number] [place] [address] 07322- 7673 Apr, Encounter for supervision of normal first in first trimester Z34.01 [facility] [address] [facility] [id number] [place] [address]- 9476 Mar, [facility] [address] [facility] [id number] [address] Mar, Encounter for test, result unknown Z32.00 IMMUNIZATIONS No Known Immunizations SOCIAL HISTORY Never Assessed REASON FOR VISIT [facility] Hemoglobin PLAN OF CARE VITAL SIGNS MEDICATIONS Unknown Medications RESULTS Name Result Date Reference Range HEMOGLOBIN (IN HOUSE) 2017-04-20 HEMOGLOBIN 13.6 11.5 - 16 gm/dL Lot # [id number] Exp date 04/03/2018 PROCEDURES Procedure Date Ordered Result Body Site HEMOGLOBIN Apr 20, 2017 INSTRUCTIONS MEDICATIONS ADMINISTERED No Known Medications MEDICAL (GENERAL) HISTORY Type Description Date Medical History depression and anxiety Surgical History 5 wisdom teeth removed 2014 Surgical History mole removed preteen Hospitalization History Misscarried 07/02 Hospitalization History multiple inpatient psych treatments teens
--- OUTSIDE RECORDS SUMMARY | 2018-02-13 12:51 | XMS REPORT ---
Author Author AYAH SIMS [facility] Address [address] [place] [address] Care Team Providers Care Roll Forming Supervisor Name Role Phone AYAH SIMS Unavailable PROBLEMS Type Condition ICD9-CM Code RPI71-YF Code Onset Dates Condition Status SNOMED Code Problem History of methamphetamine use Z87.898 Active 181828888 Problem Cannabis abuse F12.10 Active 00282865 Problem Methamphetamine use disorder, moderate, 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 Active 28608487 Problem IUFD at less than 20 weeks of gestation O02.1 Active 088494267 Problem Episodic cannabis use F12.90 Active 550622092 Problem Bipolar disorder, unspecified F31.9 Active 49386352 Problem Post-traumatic stress disorder, chronic F43.12 Active 03322800 ALLERGIES No Information ENCOUNTERS Encounter Location Date Diagnosis [place] [id number] [place] [address] 59906- 4134 Oct, [place] [address] 59752- 6824 September, Post-traumatic stress disorder, chronic F43.12 ; Bipolar disorder, unspecified F31.9 ; Cannabis abuse F12.10 and Methamphetamine use disorder, moderate, 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 [place] [id number] [place] [address] 51057- 0633 September, Encounter for IUD removal Z30.432 [place] [address] 54987- 0712 Aug, Post-traumatic stress disorder, chronic F43.12 ; Bipolar disorder, unspecified F31.9 ; Cannabis abuse F12.10 and Methamphetamine use disorder, moderate, 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 [place] [address] 14765- 9683 03 Aug, 2017 exam Z39.2 and Encounter for IUD insertion Z30.[address] 98258- 3848 13 Jul, 2017 control counseling Z30.09 and IUFD at less than 20 weeks of gestation O02.[address] 99540- 5998 08 Jul, 2017 Post-traumatic stress disorder, chronic F43.12 ; Bipolar disorder, unspecified F31.9 ; Cannabis abuse F12.10 and Methamphetamine use disorder, moderate, 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 20229- 0005 Jun, Bipolar disorder, unspecified F31.9 and Post-traumatic stress disorder, chronic F43.[address] 18288- 0248 Jun, [address] 74686- 2927 Jun, Severe episode of recurrent major depressive disorder, without psychotic features F33.2 ; Endometritis following delivery O86.12 ; Elevated TSH R94.6 ; IUFD at less than 20 weeks of gestation O02.1 ; Right upper quadrant pain R10.11 and Positive urine drug screen R82.[address] 52419- 5726 Jun, IUFD at less than 20 weeks of gestation O02.1 [place] [address] 07103- 6111 Jun, [address] 64480- 4901 13 Jun, 2017 care, first in second trimester Z34.02 ; RUQ pain R10.11 and 18 weeks gestation of Z3A.[address] 75544- 9427 May, 14 weeks gestation of Z3A.14 and care, first in second trimester Z34.02 [place] [id number] [place] [address] 15752- 7276 May, [place] [id number] [place] [address] 28007- 4978 May, Vaginal bleeding in O46.90 [place] [id number] [place] [address] 17638- 6153 Apr, [place] [id number] [place] [address] 71651- 0304 Apr, Encounter for supervision of normal first in first trimester Z34.01 ; 10 weeks gestation of Z3A.10 ; Other specified disorders of amniotic fluid and membranes, first trimester, not applicable or unspecified O41.8X10 and Other antepartum hemorrhage, first trimester O46.8X1 [place] [id number] [place] [address] 18009- 1173 Apr, [place] [id number] [place] [address] 33700- 8834 Apr, Threatened miscarriage in early O20.0 [place] [id number] [place] [address] 83752- 2895 Apr, Screening for deficiency anemia Z13.0 [place] [id number] [place] [address] 43267- 3631 Apr, Encounter for supervision of normal first in first trimester Z34.01 [place] [id number] [place] [address] 66615- 1687 Apr, [place] [id number] [place] [address] 95764- 8825 Apr, Encounter for supervision of normal first in first trimester Z34.01 [place] [id number] [place] [address] 40131- 0025 Apr, Encounter for supervision of normal first in first trimester Z34.01 [facility] [address] [facility] [id number] [place] [address]- 4357 Mar, [facility] [address] [facility] [id number] [place] [address]- 9330 Mar, Encounter for test, result unknown Z32.00 IMMUNIZATIONS No Known Immunizations SOCIAL HISTORY Never Assessed REASON FOR VISIT Ultrasound order PLAN OF CARE VITAL SIGNS MEDICATIONS Unknown Medications RESULTS Name Result Date Reference Range Ultrasound : OB, Early <14 WEEKS 2017-04-21 PROCEDURES No Known procedures INSTRUCTIONS MEDICATIONS ADMINISTERED No Known Medications MEDICAL (GENERAL) HISTORY Type Description Date Medical History depression and anxiety Surgical History 5 wisdom teeth removed 2014 Surgical History mole removed preteen Hospitalization History Misscarried 07/02 Hospitalization History multiple inpatient psych treatments teens
--- OUTSIDE RECORDS SUMMARY | 2018-02-13 12:51 | XMS REPORT ---
Author Author EDGARDO PHAM Organization [facility] Address [address] [place] [address] Care Team Providers Care Cuff Presser Name Role Phone EDGARDO PHAM Unavailable PROBLEMS Type Condition ICD9-CM Code CAL43-ZR Code Onset Dates Condition Status SNOMED Code Problem History of methamphetamine use Z87.898 Active 405493389 Problem Cannabis abuse F12.10 Active 34460248 Problem Methamphetamine use disorder, moderate, 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 Active 50521359 Problem IUFD at less than 20 weeks of gestation O02.1 Active 270249760 Problem Episodic cannabis use F12.90 Active 631483292 Problem Bipolar disorder, unspecified F31.9 Active 94310753 Problem Post-traumatic stress disorder, chronic F43.12 Active 16626104 ALLERGIES No Information ENCOUNTERS Encounter Location Date Diagnosis [place] [id number] [place] [address] 07283- 5329 Nov, [place] [id number] [place] [address] 07308- 2455 Oct, Post-traumatic stress disorder, chronic F43.12 ; Bipolar disorder, unspecified F31.9 ; Cannabis abuse F12.10 and Methamphetamine use disorder, moderate, 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 [facility] [address] [place] [address] 04243- 6128 September, Post-traumatic stress disorder, chronic F43.12 ; Bipolar disorder, unspecified F31.9 ; Cannabis abuse F12.10 and Methamphetamine use disorder, moderate, 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 [facility] [id number] [place] [address] 16192- 5240 September, Encounter for IUD removal Z30.432 [place] [id number] [place] [address] 94142- 7053 Aug, Post-traumatic stress disorder, chronic F43.12 ; Bipolar disorder, unspecified F31.9 ; Cannabis abuse F12.10 and Methamphetamine use disorder, moderate, 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 [place] [address] [place] [address] 044141- 6146 03 Aug, 2017 exam Z39.2 and Encounter for IUD insertion Z30.[address] 864939- 5606 13 Jul, 2017 control counseling Z30.09 and IUFD at less than 20 weeks of gestation O02.1 [place] [address]606- 1699 08 Jul, 2017 Post-traumatic stress disorder, chronic F43.12 ; Bipolar disorder, unspecified F31.9 ; Cannabis abuse F12.10 and Methamphetamine use disorder, moderate, 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 77160- 6336 Jun, Bipolar disorder, unspecified F31.9 and Post-traumatic stress disorder, chronic F43.[address] 47460- 4346 Jun, [address] 93229- 1510 Jun, Severe episode of recurrent major depressive disorder, without psychotic features F33.2 ; Endometritis following delivery O86.12 ; Elevated TSH R94.6 ; IUFD at less than 20 weeks of gestation O02.1 ; Right upper quadrant pain R10.11 and Positive urine drug screen R82.[address] 04014- 3463 Jun, IUFD at less than 20 weeks of gestation O02.[address] 43179- 5647 Jun, [address] [place] [address]- 2249 13 Jun, 2017 care, first in second trimester Z34.02 ; RUQ pain R10.11 and 18 weeks gestation of Z3A.18 [place] [id number] [place] [address] 60012- 8215 May, 14 weeks gestation of Z3A.14 and care, first in second trimester Z34.02 [place] [address] 31194- 9478 May, [place] [address] 13969- 4226 May, Vaginal bleeding in O46.90 [place] [address] 23838- 2796 Apr, [address] 20477- 6280 Apr, Encounter for supervision of normal first in first trimester Z34.01 ; 10 weeks gestation of Z3A.10 ; Other specified disorders of amniotic fluid and membranes, first trimester, not applicable or unspecified O41.8X10 and Other antepartum hemorrhage, first trimester O46.8X1 [place] [id number] [place] [address] 96201- 0499 Apr, [place] [id number] [place] [address] 13177- 3215 Apr, Threatened miscarriage in early O20.0 [place] [address] 56361- 1030 Apr, Screening for deficiency anemia Z13.[address] 49622- 1087 Apr, Encounter for supervision of normal first in first trimester Z34.01 [place] [id number] [place] [address] 97394- 6289 Apr, [place] [address] [place] [id number] [place] [address]- 8262 Apr, Encounter for supervision of normal first in first trimester Z34.01 [facility] [address] [facility] [id number]- 6016 Apr, Encounter for supervision of normal first in first trimester Z34.01 [facility] [address] [facility] [id number], [place] [address]- 9471 Mar, [place] [address] [facility] [id number] [address]- 8485 Mar, Encounter for test, result unknown Z32.00 IMMUNIZATIONS No Known Immunizations SOCIAL HISTORY Never Assessed REASON FOR VISIT OB phone call PLAN OF CARE VITAL SIGNS MEDICATIONS Unknown Medications RESULTS Name Result Date Reference Range Ultrasound : OB, Early <14 WEEKS 2017-05-25 PROCEDURES No Known procedures INSTRUCTIONS MEDICATIONS ADMINISTERED No Known Medications MEDICAL (GENERAL) HISTORY Type Description Date Medical History depression and anxiety Surgical History 5 wisdom teeth removed 2014 Surgical History mole removed preteen Hospitalization History Misscarried 07/02 Hospitalization History multiple inpatient psych treatments teens
--- OUTSIDE RECORDS SUMMARY | 2018-02-13 12:51 | XMS REPORT ---
Author Author AYAH SIMS [facility] Address [address] [place] [address] Care Team Providers Care Storage Wharfage Clerk Name Role Phone AYAH SIMS Unavailable PROBLEMS Type Condition ICD9-CM Code IZO78-GB Code Onset Dates Condition Status SNOMED Code Problem History of methamphetamine use Z87.898 Active 112898034 Problem Cannabis abuse F12.10 Active 25533376 Problem Methamphetamine use disorder, moderate, 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 Active 99249364 Problem IUFD at less than 20 weeks of gestation O02.1 Active 992934011 Problem Episodic cannabis use F12.90 Active 286326219 Problem Bipolar disorder, unspecified F31.9 Active 28589838 Problem Post-traumatic stress disorder, chronic F43.12 Active 90786284 ALLERGIES No Information ENCOUNTERS Encounter Location Date Diagnosis [place] [id number] [place] [address] 02389- 9148 Oct, [place] [address] 83646- 9221 September, Post-traumatic stress disorder, chronic F43.12 ; Bipolar disorder, unspecified F31.9 ; Cannabis abuse F12.10 and Methamphetamine use disorder, moderate, 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 [place] [id number] [place] [address] 88613- 6376 September, Encounter for IUD removal Z30.432 [place] [address] 01009- 1791 Aug, Post-traumatic stress disorder, chronic F43.12 ; Bipolar disorder, unspecified F31.9 ; Cannabis abuse F12.10 and Methamphetamine use disorder, moderate, 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 [place] [address] 32209- 1794 03 Aug, 2017 exam Z39.2 and Encounter for IUD insertion Z30.[address] 03754- 2450 13 Jul, 2017 control counseling Z30.09 and IUFD at less than 20 weeks of gestation O02.[address] 27697- 5098 08 Jul, 2017 Post-traumatic stress disorder, chronic F43.12 ; Bipolar disorder, unspecified F31.9 ; Cannabis abuse F12.10 and Methamphetamine use disorder, moderate, 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 15888- 6419 Jun, Bipolar disorder, unspecified F31.9 and Post-traumatic stress disorder, chronic F43.[address] 23116- 0679 Jun, [address] 86863- 8982 Jun, Severe episode of recurrent major depressive disorder, without psychotic features F33.2 ; Endometritis following delivery O86.12 ; Elevated TSH R94.6 ; IUFD at less than 20 weeks of gestation O02.1 ; Right upper quadrant pain R10.11 and Positive urine drug screen R82.[address] 26369- 1168 Jun, IUFD at less than 20 weeks of gestation O02.1 [place] [address] 44001- 4272 Jun, [address] 36840- 8709 13 Jun, 2017 care, first in second trimester Z34.02 ; RUQ pain R10.11 and 18 weeks gestation of Z3A.[address] 01032- 1305 May, 14 weeks gestation of Z3A.14 and care, first in second trimester Z34.02 [place] [id number] [place] [address] 82351- 6329 May, [place] [id number] [place] [address] 27217- 8300 May, Vaginal bleeding in O46.90 [place] [id number] [place] [address] 93320- 0913 Apr, [place] [id number] [place] [address] 49830- 4635 Apr, Encounter for supervision of normal first in first trimester Z34.01 ; 10 weeks gestation of Z3A.10 ; Other specified disorders of amniotic fluid and membranes, first trimester, not applicable or unspecified O41.8X10 and Other antepartum hemorrhage, first trimester O46.8X1 [place] [id number] [place] [address] 94406- 7898 Apr, [place] [id number] [place] [address] 70145- 5394 Apr, Threatened miscarriage in early O20.0 [place] [id number] [place] [address] 93585- 4340 Apr, Screening for deficiency anemia Z13.0 [place] [id number] [place] [address] 40221- 1745 Apr, Encounter for supervision of normal first in first trimester Z34.01 [place] [id number] [place] [address] 49043- 6965 Apr, [place] [id number] [place] [address] 70577- 6512 Apr, Encounter for supervision of normal first in first trimester Z34.01 [place] [id number] [place] [address] 34815- 7389 Apr, Encounter for supervision of normal first in first trimester Z34.01 [facility] [address] [facility] [id number] [place] [address]- 2120 Mar, [facility] [address] [facility] [id number] [place] [address]- 1828 Mar, Encounter for test, result unknown Z32.00 IMMUNIZATIONS No Known Immunizations SOCIAL HISTORY Never Assessed REASON FOR VISIT OB labs PLAN OF CARE VITAL SIGNS MEDICATIONS Unknown Medications RESULTS No Results PROCEDURES Procedure Date Ordered Result Body Site No Charge Apr 20, 2017 COMPLETE CBC W/AUTO DIFF WBC Apr 20, 2017 RUBELLA ANTIBODY Apr 20, 2017 BLOOD TYPING, ABO Apr 20, 2017 BLOOD TYPING, RH (D) Apr 20, 2017 ASSAY THYROID STIM HORMONE Apr 20, 2017 RBC ANTIBODY SCREEN Apr 20, 2017 INSTRUCTIONS MEDICATIONS ADMINISTERED No Known Medications MEDICAL (GENERAL) HISTORY Type Description Date Medical History depression and anxiety Surgical History 5 wisdom teeth removed 2014 Surgical History mole removed preteen Hospitalization History Misscarried 07/02 Hospitalization History multiple inpatient psych treatments teens
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
--- OUTSIDE RECORDS SUMMARY | 2018-02-13 12:52 | XMS REPORT | Clinical Summary ---
Author Author Admin, ZULY Organization [facility] Address Unknown Phone Unavailable Allergies, Adverse Reactions, Alerts Allergy Name Reaction Description Start Date Severity Status Provider AMOXICILLIN Hives Severe Active Mabel Ozuna PLANE CAPTAIN CLONIDINE Critical Active Jaida Shin MD Conditions or Problems Problem Name Problem Code Onset Date Status Entry Date Provider Comment Standard Description Annotate HAND PAIN, RIGHT 729.5 Resolved Anitha Fournier MD PhD Pain in limb FAMILY HISTORY OF ASTHMA V17.5 Active Anitha oFurnier MD PhD Family history of asthma FH [...] wrist Routine gynecological examination V72.31 Active Mabel Coolricardo PLANE CAPTAIN Routine gynecological examination HAND PAIN, RIGHT ICD-729.5 Inactive Anitha Fournier MD PhD HEALTH EXAMINATION OF DEFINED SUBPOPULATION ICD-V70.5 Inactive Anitha Fournier MD PhD BRONCHITIS-ACUTE ICD-466.0 Inactive Jaida Shin MD FATIGUE ICD-780.79 Inactive Anitha Fournier MD PhD ABDOMINAL PAIN ICD-789.00 Inactive Jaida Shin MD FATIGUE ICD-780.79 Inactive Anitha Fournier MD PhD BACK PAIN ICD-724.5 Inactive Anitha Fournier MD PhD SEXUAL ACTIVITY, HIGH RISK ICD-V69.2 Inactive Anitha Fournier MD PhD CHLAMYDIAL INFECTION ICD-099.41 Inactive Anitha Fournier MD PhD PELVIC INFLAMMATORY DISEASE, ACUTE ICD-614.9 Inactive Anitha Fournier MD PhD ABDOMINAL PAIN ICD-789.00 Inactive Anitha Fournier MD PhD NAUSEA AND VOMITING ICD-787.01 Inactive Anitha Fournier MD PhD SINUSITIS, ACUTE ICD-461.9 Inactive Anitha Fournier MD PhD SINUSITIS, ACUTE ICD-461.9 Inactive Fadi Blanco MD ABDOMINAL PAIN, LEFT UPPER QUADRANT ICD-789.02 Inactive Jaida Shin MD FREQUENCY, URINARY ICD-788.41 Inactive Jaida Shin MD GALACTORRHEA ICD-611.6 Inactive Jaida Shin MD UTI ICD-599.0 Inactive Anitha Fournier MD PhD NECK PAIN ICD-723.1 Inactive Anitha Fournier MD PhD SOB ICD-786.09 Inactive Anitha Fournier MD PhD URI ICD-465.9 Inactive Anitha Fournier MD PhD Medication List Medication Instructions Start Date Stop Date Generic Name NDC Status Provider Patient Instruction EQL IRON SUPPLEMENT THERAPY 325 MG ORAL TABS 1 tab po daily FERROUS SULFATE 07419408501 Active Mabel Ozuna APRN Active DAILY [facility] ORAL TABS 1 tab po daily MULTIPLE VITAMINS-MINERALS 74554018122 Active Mabel Ozuna APRN Active BIOTIN 5000 MCG ORAL CAPS 3 caps po daily BIOTIN 99997835091 Active Mabel Ozuna APRN Active HYDROXYZINE HCL 25 MG TABS 1 Q BID PRN HYDROXYZINE HCL 64518619219 No Longer Active Mabel Ozuna APRN Active FANAPT 2 MG TABS take 2 tabs at bedtime ILOPERIDONE 56336655169 No Longer Active Kyraina Laith TAN Active PRISTIQ 50 MG [id number] Take 1 tab in the evening for aniety and depression DESVENLAFAXINE SUCCINATE 82081701827 No Longer Active Mabel Ozuna APRN Active TRI-SPRINTEC 0.18/0.215/0.25 MG-35 MCG TABS 1 tablet po daily NORGESTIM-ETH ESTRAD TRIPHASIC 05680107018 No Longer Active Mabel Ozuna APRN Active PREDNISONE 20 MG TAB 2 tabs daily for 3 days, 1 tab daily for 3 days, 1/2 tab daily for 2 days PREDNISONE 88237670259 No Longer Active Jared Maloney DO Active VENTOLIN HFA 108 (90 BASE) MCG/ACT AERS 2 puffs four times a day PRN cough/ SOA ALBUTEROL SULFATE 52882528129 No Longer Active Jared Maloney DO Active TESSALON PERLES 100 MG CAP 1 tablet by mouth 3 times daily PRN cough BENZONATATE 47593782336 No Longer Active Jared Maloney DO Active REMERON 15 MG TABS 1 tablet daily MIRTAZAPINE 72108227440 No Longer Active Jared Maloney DO Active DOXYCYCLINE HYCLATE 100 MG CAP 1 cap by mouth twice daily DOXYCYCLINE HYCLATE 80670570896 No Longer Active Anitha Fournier MD PhD Active [facility] IBUPROFEN 200 MG CAPS 1 tid, PRN IBUPROFEN 22387732959 Active Anitha Fournier MD PhD Active TRAZODONE HCL 100 MG TABS 1 tablet at bedtime TRAZODONE HCL 63506791150 No Longer Active Jaida Shin MD Active LATUDA 40 MG TABS 1 tablet daily LURASIDONE HCL 38608082543 No Longer Active Jaida Shin MD Active ABILIFY 15 MG TABS 1 daily ARIPIPRAZOLE 29956949638 No Longer Active Fadi Blanco MD Active AMOXICILLIN 500 MG CAPS 2 po BID x 10 days AMOXICILLIN 80307592380 No Longer Active Anitha Fournier MD PhD Active SINGULAIR 10 MG TABS 1 po qd PRN runny nose/congestion MONTELUKAST SODIUM 40505934434 No Longer Active Anitha Fournier MD PhD Active AMOXICILLIN 500 MG CAPS 2 po BID x 10 days AMOXICILLIN 62776546440 No Longer Active Anitha Fournier MD PhD Active LEXAPRO 20 MG TABS Take one by mouth daily ESCITALOPRAM OXALATE 59615745291 No Longer Active Anitha Fournier MD PhD Active LAMOTRIGINE 100 MG TABS Take one (1) tablet by mouth twice a day LAMOTRIGINE 75813410681 No Longer Active Anitha Fournier MD PhD Active MELATONIN 5 MG TABS Take 1 tablet by mouth daily MELATONIN 87955216810 No Longer Active Anitha Fournier MD PhD Active MULTIVITAMINS TABS Take 1 tablet by mouth daily MULTIPLE VITAMIN 22137397622 No Longer Active Anitha Fournier MD PhD Active NYSTATIN 678984 UNIT/GM CREA apply to rash TID PRN NYSTATIN 33877340723 No Longer Active Anitha Fournier MD PhD Active AZITHROMYCIN 250 MG TABS 2 po qd x 1 day, then 1 po qd x 4 days AZITHROMYCIN 83883772086 No Longer Active Anitha Fournier MD PhD Active TRAZODONE HCL 50 MG TABS 1/2 @ HS TRAZODONE HCL 11422918715 No Longer Active Jaida Shin MD Active CYPROHEPTADINE HCL 4 MG TABS 1 tablet po at hs CYPROHEPTADINE HCL 66873831863 No Longer Active Anihta Fournier MD PhD Active HYDROXYZINE HCL 50 MG TABS 1-2 tabs po at hs HYDROXYZINE HCL 77729198072 No Longer Active Anitha Fournier MD PhD Active CONCERTA 27 MG CR-TABS 1 tablet daily METHYLPHENIDATE HCL 00011285057 No Longer Active Anitha Fournier MD PhD Active ACETAMINOPHEN-CODEINE #3 300-30 MG TABS 1 pill q 6hrs prn pain ACETAMINOPHEN-CODEINE 59707322650 No Longer Active Jaida Shin MD Active CONCERTA 27 MG CR-TABS 1 tablet daily CONCERTA 27 MG CR-TABS METHYLPHENIDATE HCL Inactive HYDROXYZINE HCL 50 MG TABS 1-2 tabs po at hs HYDROXYZINE HCL 50 MG TABS 156167 HYDROXYZINE HCL Inactive CYPROHEPTADINE HCL 4 MG TABS 1 tablet po at hs CYPROHEPTADINE HCL 4 MG TABS 004261 CYPROHEPTADINE HCL Inactive TRAZODONE HCL 50 MG TABS 1/2 @ HS TRAZODONE HCL 50 MG TABS 666374 TRAZODONE HCL Inactive NYSTATIN 627429 UNIT/GM CREA apply to rash TID PRN NYSTATIN 885208 UNIT/GM CREA 902193 NYSTATIN Inactive MULTIVITAMINS TABS Take 1 tablet by mouth daily MULTIVITAMINS TABS MULTIPLE VITAMIN Inactive MELATONIN 5 MG TABS Take 1 tablet by mouth daily MELATONIN 5 MG TABS 859866 MELATONIN Inactive LAMOTRIGINE 100 MG TABS Take one (1) tablet by mouth twice a day LAMOTRIGINE 100 MG TABS 990423 LAMOTRIGINE Inactive LEXAPRO 20 MG TABS Take one by mouth daily LEXAPRO 20 MG TABS 733669 ESCITALOPRAM OXALATE Inactive ABILIFY 15 MG TABS 1 daily ABILIFY 15 MG TABS 712401 ARIPIPRAZOLE Inactive LATUDA 40 MG TABS 1 tablet daily LATUDA 40 MG TABS LURASIDONE HCL Inactive TRAZODONE HCL 100 MG TABS 1 tablet at bedtime TRAZODONE HCL 100 MG TABS 079166 TRAZODONE HCL Inactive REMERON 15 MG TABS 1 tablet daily REMERON 15 MG TABS 987646 MIRTAZAPINE Inactive TESSALON PERLES 100 MG CAP 1 tablet by mouth 3 times daily PRN cough TESSALON PERLES 100 MG CAP 645491 BENZONATATE Inactive VENTOLIN HFA 108 (90 BASE) MCG/ACT AERS 2 puffs four times a day PRN cough/ SOA VENTOLIN HFA 108 (90 BASE) MCG/ACT AERS ALBUTEROL SULFATE Inactive TRI-SPRINTEC 0.18/0.215/0.25 MG-35 MCG TABS 1 tablet po daily TRI-SPRINTEC 0.18/0.215/0.25 MG-35 MCG TABS 449022 NORGESTIM-ETH ESTRAD TRIPHASIC Inactive PRISTIQ 50 MG [id number] Take 1 tab in the evening for aniety and depression PRISTIQ 50 MG [id number] DESVENLAFAXINE SUCCINATE Inactive FANAPT 2 MG TABS take 2 tabs at bedtime FANAPT 2 MG TABS ILOPERIDONE Inactive HYDROXYZINE HCL 25 MG TABS 1 Q BID PRN HYDROXYZINE HCL 25 MG TABS 292366 HYDROXYZINE HCL Inactive ACETAMINOPHEN-CODEINE #3 300-30 MG TABS 1 pill q 6hrs prn pain ACETAMINOPHEN-CODEINE #3 300-30 MG TABS 687492 ACETAMINOPHEN- CODEINE Inactive AZITHROMYCIN 250 MG TABS 2 po qd x 1 day, then 1 po qd x 4 days AZITHROMYCIN 250 MG TABS 8931113 AZITHROMYCIN Inactive AMOXICILLIN 500 MG CAPS 2 po BID x 10 days AMOXICILLIN 500 MG CAPS 957745 AMOXICILLIN Inactive SINGULAIR 10 MG TABS 1 po qd PRN runny nose/congestion SINGULAIR 10 MG TABS 036706 MONTELUKAST SODIUM Inactive AMOXICILLIN 500 MG CAPS 2 po BID x 10 days AMOXICILLIN 500 MG CAPS 132255 AMOXICILLIN Inactive DOXYCYCLINE HYCLATE 100 MG CAP 1 cap by mouth twice daily DOXYCYCLINE HYCLATE 100 MG CAP 3922246 DOXYCYCLINE HYCLATE Inactive PREDNISONE 20 MG TAB 2 tabs daily for 3 days, 1 tab daily for 3 days, 1/2 tab daily for 2 days PREDNISONE 20 MG TAB 617924 PREDNISONE Inactive Immunizations Vaccine Administration Date Value Standard Description Seasonal influenza vaccine, injectable, preservative free, for > 3 years old ( Afluria, FluLaval, Fluzone, Fluvirin, Fluarix, Agriflu(>=18 yo)) Fluzone preservative free (>3 yrs.) [PRP508] Influenza, seasonal, injectable, preservative free Seasonal influenza vaccine, injectable, preservative free, for > 3 years old ( Afluria, FluLaval, Fluzone, Fluvirin, Fluarix, Agriflu(>=18 yo)) Fluzone preservative free (>3 yrs.) [RVX410] Influenza, seasonal, injectable, preservative free Hepatitis A [...] (measles, mumps, rubella) virus immunization #1 Historical hepatitis B vaccine #3 Historical hepatitis B vaccine, unspecified formulation DPT immunization #3 Historical Hemophilus influenza B immunization #3 Historical Haemophilus influenzae type b vaccine, conjugate unspecified formulation oral polio vaccine (OPV) #3 Historical poliovirus vaccine, unspecified formulation DPT immunization #2 Historical Hemophilus influenza B immunization #2 Historical Haemophilus influenzae type b vaccine, conjugate unspecified formulation oral polio vaccine (OPV) #2 Historical poliovirus vaccine, unspecified formulation hepatitis B vaccine #2 given Historical hepatitis B vaccine, unspecified formulation DPT immunization #1 Historical Hemophilus influenza B immunization #1 Historical Haemophilus influenzae type b vaccine, conjugate unspecified formulation oral polio vaccine (OPV) #1 Historical poliovirus vaccine, unspecified formulation hepatitis B vaccine #1 given Historical hepatitis B vaccine, unspecified formulation Diagnostic Results Date Name Value Unit Range Description Lab Report: CBC, Thyroid Stimulating Hormone (L), Free Thyroxine (L) - Chemistry TSH 1.77 m[iU]/mL 0.36-3.74 thyroxine, serum, free 0.87 ng/dL 0.78-1.34 Lab Report: CBC, Thyroid Stimulating Hormone (L), Free Thyroxine (L) - Hematology leukocyte count, blood 9.5 10^3/MM^3 10*3/mm3 4.6-10.2 erythrocyte (RBC) count 4.55 10^6/MM^3 10*6/mm3 4.04-5.48 hemoglobin, blood 13.8 g/dL 12.0-16.0 hematocrit, blood 41.0 % 36.0-46.0 mean corpuscular volume, RBC 90 fL 80-97 mean corpuscular hemoglobin, RBC 30.2 pg 27.0-31.2 mean corpuscular hemoglobin concentration, RBC 33.5 G/DL % 31.8- 35.4 red blood cell distribution width 13.9 % 11.6-14.8 platelet count 295 10^3/MM^3 10*3/mm3 142-424 Lab Report: Chlamydia/GC APTIMA/[id number] - Lab chlamydia DNA probe NOT DETECTED NOT DETECTED Lab Report: Chlamydia/GC APTIMA/34391 - Microbiology Neisseria gonorrhoeae DNA probe NOT DETECTED NOT DETECTED Lab Report: [facility] [place] - Chemistry human chorionic gonadotropin, urine, qualitative (urine test) Negative Negative Encounters Code Encounter Date Provider Facility CPT-53952 Level 3 Est. Patient 21:38:45 CDT Jared Stover Haider GOME[facility] CPT-21418 Level 4 Est. Patient 18:13:37 FRIT BURNER Anitha Fournier MD [facility]-94658 Level 3 Est. Patient 13:24:15 FRIT BURNER Anitha Fournier MD [facility]-81790 Level 3 Est. Patient 08:50:05 CDT Jaida Shin MD [facility]-81417 Level 3 Est. Patient 09:28:01 CDT Mabel Ozuna APRN [facility]-52234 Level 3 Est. Patient 16:40:06 FRIT BURNER Anitha Fournier MD [facility]-43825 Level 3 Est. Patient 12:36:13 CDT Anitha Fournier MD [facility]-14963 Level 3 Est. Patient 18:37:20 CDT Anitha Fournier MD [facility]-66074 Level 2 Est. Patient 13:42:23 CDT Anitha Fournier MD [facility]-80127 Level 3 Est. Patient 16:20:08 CDT Anitha Fournier MD [facility]-62757 Level 3 Est. Patient 10:48:04 CDT Jaida Shin MD [facility]-82172 Level 4 Est. Patient 19:54:37 CDT Anitha Fournier MD [facility]-53163 Level 3 Est. Patient 14:44:10 CDT Jaida Shin MD [facility]-06522 Level 3 Est. Patient 18:39:52 FRIT BURNER Anitha Fournier MD [facility]-61831 Level 2 Est. Patient 17:11:04 FRIT BURNER Jaida Shin MD [facility] CPT-57051 Level 3 Est. Patient 16:20:25 FRIT BURNER Jaida Shin MD [facility] Procedures Code Procedure Name Date Entry Date Standard Description CPT-88289 Administration single or combination vaccine inc oral 11 :29:34 CDT CPT-59526 Influenza Preservative Free split virus >age 3 11:29:34 CDT CPT-51663 Chest 2V Frontal and Lat 09:13:38 CDT CPT-20963 Abd single AP View 12:11:59 CDT CPT-26707 Sono abd com inc all organs plus proximal aorta and distal IVC 2011 09:05:56 CDT CPT-75786 Abd compl w upright 10:39:58 CDT CPT-J0696 Rocephin 500 mg (Ceftriaxone) 13:49:25 CDT CPT-87382 Abx/Therapy Injection 13:49:25 CDT CPT-J0696 Rocephin 500 mg (Ceftriaxone) 13:25:42 CDT CPT-77893 Abd single AP View 13:13:10 CDT CPT-000 Give Appropriate Flu Vaccine 17:02:34 FRIT BURNER CPT-000 Give Immunizations Due 17:02:34 FRIT BURNER CPT-75163 Administration 2+ single or combination vaccines inc oral 17:35:00 FRIT BURNER CPT-82219 Administration single or combination vaccine inc oral 17 :35:00 FRIT BURNER CPT-31679 Influenza Preservative Free split virus >age 3 17:35:00 FRIT BURNER CPT-54623 Hepatitis A ped/adol 2 dose schedule 17:35:00 FRIT BURNER 07/06 CPT-94190 Meningococcal Conjugate Vacine (Menactra) 17:35:00 FRIT BURNER CPT-L3908 Cockup Splint 16:20:25 FRIT BURNER CPT-19114 Hand comp min 3V 16:20:25 FRIT BURNER
--- OUTSIDE RECORDS SUMMARY | 2018-02-13 12:53 | XMS REPORT | Clinical Summary ---
Author Author Admin, ZULY Organization [facility] Address Unknown Phone Unavailable Allergies, Adverse Reactions, Alerts Allergy Name Reaction Description Start Date Severity Status Provider AMOXICILLIN Hives Severe Active Mabel Ozuna VASCULAR SONOGRAPHER CLONIDINE Critical Active Jaida Shin MD Conditions [...] not specified NECK PAIN 723.1 Resolved Anitha Fouriner MD PhD Cervicalgia SOB 786.09 Resolved Anitha [...] Routine gynecological examination V72.31 Active Mabel Coolricardo VASCULAR SONOGRAPHER Routine gynecological examination HAND PAIN, RIGHT ICD-729.5 [...] TABS 1 tab po daily FERROUS SULFATE 56691305150 Active Mabel Ozuna APRN Active DAILY [employer] FORMULA ORAL TABS 1 tab po daily MULTIPLE VITAMINS-MINERALS 58496017026 Active Mabel Ozuna APRN Active BIOTIN 5000 MCG ORAL CAPS 3 caps po daily BIOTIN 51009558962 Active Mabel Ozuna APRN Active HYDROXYZINE HCL 25 MG TABS 1 Q BID PRN HYDROXYZINE HCL 05506869714 No Longer Active Mabel Ozuna APRN Active FANAPT 2 MG TABS take 2 tabs at bedtime ILOPERIDONE 10155528402 No Longer Active Kyraina Laith TAN Active PRISTIQ 50 MG [id number] Take 1 tab in the evening for aniety and depression DESVENLAFAXINE SUCCINATE 18159554069 No Longer Active Mabel Ozuna APRN Active TRI-SPRINTEC 0.18/0.215/0.25 MG-35 MCG TABS 1 tablet po daily NORGESTIM-ETH ESTRAD TRIPHASIC 29402999594 No Longer Active Mabel Ozuna APRN Active PREDNISONE 20 MG TAB 2 tabs daily for 3 days, 1 tab daily for 3 days, 1/2 tab daily for 2 days PREDNISONE 06915785025 No Longer Active Jared Maloney DO Active VENTOLIN HFA 108 (90 BASE) MCG/ACT AERS 2 puffs four times a day PRN cough/ SOA ALBUTEROL SULFATE 79870549286 No Longer Active Jared Maloney DO Active TESSALON PERLES 100 MG CAP 1 tablet by mouth 3 times daily PRN cough BENZONATATE 94384760640 No Longer Active Jared Maloney DO Active REMERON 15 MG TABS 1 tablet daily MIRTAZAPINE 88959546075 No Longer Active Jared Maloney DO Active DOXYCYCLINE HYCLATE 100 MG CAP 1 cap by mouth twice daily DOXYCYCLINE HYCLATE 39892041130 No Longer Active Anitha Fournier MD PhD Active [facility] IBUPROFEN 200 MG CAPS 1 tid, PRN IBUPROFEN 45581313079 Active Anitha Fournier MD PhD Active TRAZODONE HCL 100 MG TABS 1 tablet at bedtime TRAZODONE HCL 77943505177 No Longer Active Jaida Shin MD Active LATUDA 40 MG TABS 1 tablet daily LURASIDONE HCL 70587772543 No Longer Active Jaida Shin MD Active ABILIFY 15 MG TABS 1 daily ARIPIPRAZOLE 31958416605 No Longer Active Fadi Blanco MD Active AMOXICILLIN 500 MG CAPS 2 po BID x 10 days AMOXICILLIN 30804599280 No Longer Active Anitha Fournier MD PhD Active SINGULAIR 10 MG TABS 1 po qd PRN runny nose/congestion MONTELUKAST SODIUM 45769966409 No Longer Active Anitha Fournier MD PhD Active AMOXICILLIN 500 MG CAPS 2 po BID x 10 days AMOXICILLIN 24752238401 No Longer Active Anitha Fournier MD PhD Active LEXAPRO 20 MG TABS Take one by mouth daily ESCITALOPRAM OXALATE 49987931036 No Longer Active Anitha Fournier MD PhD Active LAMOTRIGINE 100 MG TABS Take one (1) tablet by mouth twice a day LAMOTRIGINE 19917656763 No Longer Active Anitha Fournier MD PhD Active MELATONIN 5 MG TABS Take 1 tablet by mouth daily MELATONIN 72345841550 No Longer Active Anitha Fournier MD PhD Active MULTIVITAMINS TABS Take 1 tablet by mouth daily MULTIPLE VITAMIN 22068761800 No Longer Active Anitha Fournier MD PhD Active NYSTATIN 450967 UNIT/GM CREA apply to rash TID PRN NYSTATIN 31871074316 No Longer Active Anitha Fournier MD PhD Active AZITHROMYCIN 250 MG TABS 2 po qd x 1 day, then 1 po qd x 4 days AZITHROMYCIN 86464356433 No Longer Active Anitha Fournier MD PhD Active TRAZODONE HCL 50 MG TABS 1/2 @ HS TRAZODONE HCL 20875216304 No Longer Active Jaida Shin MD Active CYPROHEPTADINE HCL 4 MG TABS 1 tablet po at hs CYPROHEPTADINE HCL 76521333225 No Longer Active Anitha Fournier MD PhD Active HYDROXYZINE HCL 50 MG TABS 1-2 tabs po at hs HYDROXYZINE HCL 35721704425 No Longer Active Anitha Fournier MD PhD Active CONCERTA 27 MG CR-TABS 1 tablet daily METHYLPHENIDATE HCL 53413810235 No Longer Active Anitha Fournier MD PhD Active ACETAMINOPHEN-CODEINE #3 300-30 MG TABS 1 pill q 6hrs prn pain ACETAMINOPHEN-CODEINE 34709494137 No Longer Active Jaida Shin MD Active CONCERTA 27 MG CR-TABS 1 tablet daily CONCERTA 27 MG CR-TABS METHYLPHENIDATE HCL Inactive HYDROXYZINE HCL 50 MG TABS 1-2 tabs po at hs HYDROXYZINE HCL 50 MG TABS 380202 HYDROXYZINE HCL Inactive CYPROHEPTADINE HCL 4 MG TABS 1 tablet po at hs CYPROHEPTADINE HCL 4 MG TABS 330666 CYPROHEPTADINE HCL Inactive TRAZODONE HCL 50 MG TABS 1/2 @ HS TRAZODONE HCL 50 MG TABS 966558 TRAZODONE HCL Inactive NYSTATIN 927281 UNIT/GM CREA apply to rash TID PRN NYSTATIN 620158 UNIT/GM CREA 683421 NYSTATIN Inactive MULTIVITAMINS TABS Take 1 tablet by mouth daily MULTIVITAMINS TABS MULTIPLE VITAMIN Inactive MELATONIN 5 MG TABS Take 1 tablet by mouth daily MELATONIN 5 MG TABS 114532 MELATONIN Inactive LAMOTRIGINE 100 MG TABS Take one (1) tablet by mouth twice a day LAMOTRIGINE 100 MG TABS 996267 LAMOTRIGINE Inactive LEXAPRO 20 MG TABS Take one by mouth daily LEXAPRO 20 MG TABS 113211 ESCITALOPRAM OXALATE Inactive ABILIFY 15 MG TABS 1 daily ABILIFY 15 MG TABS 585320 ARIPIPRAZOLE Inactive LATUDA 40 MG TABS 1 tablet daily LATUDA 40 MG TABS LURASIDONE HCL Inactive TRAZODONE HCL 100 MG TABS 1 tablet at bedtime TRAZODONE HCL 100 MG TABS 905591 TRAZODONE HCL Inactive REMERON 15 MG TABS 1 tablet daily REMERON 15 MG TABS 346139 MIRTAZAPINE Inactive TESSALON PERLES 100 MG CAP 1 tablet by mouth 3 times daily PRN cough TESSALON PERLES 100 MG CAP 987738 BENZONATATE Inactive VENTOLIN HFA 108 (90 BASE) MCG/ACT AERS 2 puffs four times a day PRN cough/ SOA VENTOLIN HFA 108 (90 BASE) MCG/ACT AERS ALBUTEROL SULFATE Inactive TRI-SPRINTEC 0.18/0.215/0.25 MG-35 MCG TABS 1 tablet po daily TRI-SPRINTEC 0.18/0.215/0.25 MG-35 MCG TABS 719337 NORGESTIM-ETH ESTRAD TRIPHASIC Inactive PRISTIQ 50 MG [id number] Take 1 tab in the evening for aniety and depression PRISTIQ 50 MG [id number] DESVENLAFAXINE SUCCINATE Inactive FANAPT 2 MG TABS take 2 tabs at bedtime FANAPT 2 MG TABS ILOPERIDONE Inactive HYDROXYZINE HCL 25 MG TABS 1 Q BID PRN HYDROXYZINE HCL 25 MG TABS 882763 HYDROXYZINE HCL Inactive ACETAMINOPHEN-CODEINE #3 300-30 MG TABS 1 pill q 6hrs prn pain ACETAMINOPHEN-CODEINE #3 300-30 MG TABS 873741 ACETAMINOPHEN- CODEINE Inactive AZITHROMYCIN 250 MG TABS 2 po qd x 1 day, then 1 po qd x 4 days AZITHROMYCIN 250 MG TABS 4839619 AZITHROMYCIN Inactive AMOXICILLIN 500 MG CAPS 2 po BID x 10 days AMOXICILLIN 500 MG CAPS 746359 AMOXICILLIN Inactive SINGULAIR 10 MG TABS 1 po qd PRN runny nose/congestion SINGULAIR 10 MG TABS 624243 MONTELUKAST SODIUM Inactive AMOXICILLIN 500 MG CAPS 2 po BID x 10 days AMOXICILLIN 500 MG CAPS 400769 AMOXICILLIN Inactive DOXYCYCLINE HYCLATE 100 MG CAP 1 cap by mouth twice daily DOXYCYCLINE HYCLATE 100 MG CAP 1181566 DOXYCYCLINE HYCLATE Inactive PREDNISONE 20 MG TAB 2 tabs daily for 3 days, 1 tab daily for 3 days, 1/2 tab daily for 2 days PREDNISONE 20 MG TAB 271025 PREDNISONE Inactive Immunizations Vaccine Administration Date Value Standard Description Seasonal influenza vaccine, injectable, preservative free, for > 3 years old ( Afluria, FluLaval, Fluzone, Fluvirin, Fluarix, Agriflu(>=18 yo)) Fluzone preservative free (>3 yrs.) [[id number]] Influenza, seasonal, injectable, preservative free Seasonal influenza vaccine, injectable, preservative free, for > 3 years old ( Afluria, FluLaval, Fluzone, Fluvirin, Fluarix, Agriflu(>=18 yo)) Fluzone preservative free (>3 yrs.) [[id number]] Influenza, seasonal, injectable, preservative free Hepatitis A [...] 295 10^3/MM^3 10*3/mm3 142-424 Lab Report: Chlamydia/GC APTIMA/16847 - Lab chlamydia DNA probe NOT DETECTED NOT DETECTED Lab Report: Chlamydia/GC [facility]/31533 - Microbiology Neisseria gonorrhoeae DNA probe NOT DETECTED NOT DETECTED [place] [facility] [place] human chorionic gonadotropin, urine, qualitative (urine test) Negative Negative Encounters Code Encounter Date Provider Facility CPT-59617 Level 3 Est. Patient 21:38:45 CDT Jared Stover Haider GOMEZ [facility] CPT-24617 Level 4 Est. Patient 18:13:37 RELIEF DRILLER Anitha Fournier MD [facility]-61306 Level 3 Est. Patient 13:24:15 RELIEF DRILLER Anitha Fournier MD [facility]-71824 Level 3 Est. Patient 08:50:05 CDT Jaida Shin MD [facility]-31002 Level 3 Est. Patient 09:28:01 CDT Mabel Ozuna APRN [facility]-78119 Level 3 Est. Patient 16:40:06 RELIEF DRILLER Anitha Fournier MD [facility]-17392 Level 3 Est. Patient 12:36:13 CDT Anitha Fournier MD [facility]-82285 Level 3 Est. Patient 18:37:20 CDT Anitha Fournier MD [facility]-49675 Level 2 Est. Patient 13:42:23 CDT Anitha Fournier MD [facility]-17428 Level 3 Est. Patient 16:20:08 CDT Anitha Fournier MD [facility]-39362 Level 3 Est. Patient 10:48:04 CDT Jaida Shin MD [facility]-69768 Level 4 Est. Patient 19:54:37 CDT Anitha Fournier MD [facility]-01156 Level 3 Est. Patient 14:44:10 CDT Jaida Shin MD [facility]-69803 Level 3 Est. Patient 18:39:52 RELIEF DRILLER Anitha Fournier MD [facility]-31575 Level 2 Est. Patient 17:11:04 RELIEF DRILLER Jaida Shin MD [facility] CPT-27344 Level 3 Est. Patient 16:20:25 RELIEF DRILLER Jaida Shin MD [facility] Procedures Code Procedure Name Date Entry Date Standard Description CPT-51284 Administration single or combination vaccine inc oral 11 :29:34 CDT CPT-53723 Influenza Preservative Free split virus >age 3 11:29:34 CDT CPT-22960 Chest 2V Frontal and Lat 09:13:38 CDT CPT-27519 Abd single AP View 12:11:59 CDT CPT-73220 Sono abd com inc all organs plus proximal aorta and distal IVC 2011 09:05:56 CDT CPT-38903 Abd compl w upright 10:39:58 CDT CPT-J0696 Rocephin 500 mg (Ceftriaxone) 13:49:25 CDT CPT-74185 Abx/Therapy Injection 13:49:25 CDT CPT-J0696 Rocephin 500 mg (Ceftriaxone) 13:25:42 CDT CPT-45790 Abd single AP View 13:13:10 CDT CPT-000 Give Appropriate Flu Vaccine 17:02:34 RELIEF DRILLER CPT-000 Give Immunizations Due 17:02:34 RELIEF DRILLER CPT-55232 Administration 2+ single or combination vaccines inc oral 17:35:00 RELIEF DRILLER CPT-97591 Administration single or combination vaccine inc oral 17 :35:00 RELIEF DRILLER CPT-54941 Influenza Preservative Free split virus >age 3 17:35:00 RELIEF DRILLER CPT-68957 Hepatitis A ped/adol 2 dose schedule 17:35:00 RELIEF DRILLER 07/06 CPT-16187 Meningococcal Conjugate Vacine (Menactra) 17:35:00 RELIEF DRILLER CPT-L3908 Cockup Splint 16:20:25 RELIEF DRILLER CPT-49771 Hand comp min 3V 16:20:25 RELIEF DRILLER
--- OUTSIDE RECORDS SUMMARY | 2018-02-13 12:54 | XMS REPORT | Clinical Summary ---
Author Author Admin, ZULY Organization [facility] Address Unknown Phone Unavailable Allergies, Adverse Reactions, Alerts Allergy Name Reaction Description Start Date Severity Status Provider AMOXICILLIN Hives Severe Active Mabel Ozuna BELT KNIFE FEEDER CLONIDINE Critical Active Jaida Shin MD Conditions [...] pain, unspecified site FATIGUE 780.79 Resolved Anitha Founrier MD PhD Other malaise and fatigue BACK [...] Routine gynecological examination V72.31 Active Mabel Coolricardo BELT KNIFE FEEDER Routine gynecological examination HAND PAIN, RIGHT ICD-729.5 [...] TABS 1 tab po daily FERROUS SULFATE 27440539318 Active Mabel Ozuna APRN Active DAILY [employer] FORMULA ORAL TABS 1 tab po daily MULTIPLE VITAMINS-MINERALS 38913727651 Active Mabel Ozuna APRN Active BIOTIN 5000 MCG ORAL CAPS 3 caps po daily BIOTIN 16549795155 Active Mabel Ozuna APRN Active HYDROXYZINE HCL 25 MG TABS 1 Q BID PRN HYDROXYZINE HCL 36143414187 No Longer Active Mabel Ozuna APRN Active FANAPT 2 MG TABS take 2 tabs at bedtime ILOPERIDONE 94032854498 No Longer Active Kyraina Laith TAN Active PRISTIQ 50 MG [id number] Take 1 tab in the evening for aniety and depression DESVENLAFAXINE SUCCINATE 06309345815 No Longer Active Mabel Ozuna APRN Active TRI-SPRINTEC 0.18/0.215/0.25 MG-35 MCG TABS 1 tablet po daily NORGESTIM-ETH ESTRAD TRIPHASIC 76333487028 No Longer Active Mabel Ozuna APRN Active PREDNISONE 20 MG TAB 2 tabs daily for 3 days, 1 tab daily for 3 days, 1/2 tab daily for 2 days PREDNISONE 15006867196 No Longer Active Jared Maloney DO Active VENTOLIN HFA 108 (90 BASE) MCG/ACT AERS 2 puffs four times a day PRN cough/ SOA ALBUTEROL SULFATE 88321179294 No Longer Active Jared Maloney DO Active TESSALON PERLES 100 MG CAP 1 tablet by mouth 3 times daily PRN cough BENZONATATE 67931050919 No Longer Active Jared Maloney DO Active REMERON 15 MG TABS 1 tablet daily MIRTAZAPINE 32249691854 No Longer Active Jared Maloney DO Active DOXYCYCLINE HYCLATE 100 MG CAP 1 cap by mouth twice daily DOXYCYCLINE HYCLATE 28474008345 No Longer Active Anitha Fournier MD PhD Active [facility] IBUPROFEN 200 MG CAPS 1 tid, PRN IBUPROFEN 35000889336 Active Anitha Fournier MD PhD Active TRAZODONE HCL 100 MG TABS 1 tablet at bedtime TRAZODONE HCL 13606231334 No Longer Active Jaida Shin MD Active LATUDA 40 MG TABS 1 tablet daily LURASIDONE HCL 59809579999 No Longer Active Jaida Shin MD Active ABILIFY 15 MG TABS 1 daily ARIPIPRAZOLE 26935628202 No Longer Active Fadi Blanco MD Active AMOXICILLIN 500 MG CAPS 2 po BID x 10 days AMOXICILLIN 23619792583 No Longer Active Anitha Fournier MD PhD Active SINGULAIR 10 MG TABS 1 po qd PRN runny nose/congestion MONTELUKAST SODIUM 83951757897 No Longer Active Anitha Fournier MD PhD Active AMOXICILLIN 500 MG CAPS 2 po BID x 10 days AMOXICILLIN 46042372098 No Longer Active Anitha Fournier MD PhD Active LEXAPRO 20 MG TABS Take one by mouth daily ESCITALOPRAM OXALATE 17695965188 No Longer Active Anitha Fournier MD PhD Active LAMOTRIGINE 100 MG TABS Take one (1) tablet by mouth twice a day LAMOTRIGINE 74241047057 No Longer Active Anitha Fournier MD PhD Active MELATONIN 5 MG TABS Take 1 tablet by mouth daily MELATONIN 97248557748 No Longer Active Anitha Fournier MD PhD Active MULTIVITAMINS TABS Take 1 tablet by mouth daily MULTIPLE VITAMIN 59277771080 No Longer Active Anitha Fournier MD PhD Active NYSTATIN 975288 UNIT/GM CREA apply to rash TID PRN NYSTATIN 95884927277 No Longer Active Anitha Fournier MD PhD Active AZITHROMYCIN 250 MG TABS 2 po qd x 1 day, then 1 po qd x 4 days AZITHROMYCIN 28333266666 No Longer Active Anitha Fournier MD PhD Active TRAZODONE HCL 50 MG TABS 1/2 @ HS TRAZODONE HCL 65222634825 No Longer Active Jaida Shin MD Active CYPROHEPTADINE HCL 4 MG TABS 1 tablet po at hs CYPROHEPTADINE HCL 45502207281 No Longer Active Anitha Fournier MD PhD Active HYDROXYZINE HCL 50 MG TABS 1-2 tabs po at hs HYDROXYZINE HCL 74947339193 No Longer Active Anitha Fournier MD PhD Active CONCERTA 27 MG CR-TABS 1 tablet daily METHYLPHENIDATE HCL 34632842064 No Longer Active Anitha Fournier MD PhD Active ACETAMINOPHEN-CODEINE #3 300-30 MG TABS 1 pill q 6hrs prn pain ACETAMINOPHEN-CODEINE 31003877973 No Longer Active Jaida Shin MD Active CONCERTA 27 MG CR-TABS 1 tablet daily CONCERTA 27 MG CR-TABS METHYLPHENIDATE HCL Inactive HYDROXYZINE HCL 50 MG TABS 1-2 tabs po at hs HYDROXYZINE HCL 50 MG TABS 176997 HYDROXYZINE HCL Inactive CYPROHEPTADINE HCL 4 MG TABS 1 tablet po at hs CYPROHEPTADINE HCL 4 MG TABS 924051 CYPROHEPTADINE HCL Inactive TRAZODONE HCL 50 MG TABS 1/2 @ HS TRAZODONE HCL 50 MG TABS 497470 TRAZODONE HCL Inactive NYSTATIN 162871 UNIT/GM CREA apply to rash TID PRN NYSTATIN 867886 UNIT/GM CREA 618291 NYSTATIN Inactive MULTIVITAMINS TABS Take 1 tablet by mouth daily MULTIVITAMINS TABS MULTIPLE VITAMIN Inactive MELATONIN 5 MG TABS Take 1 tablet by mouth daily MELATONIN 5 MG TABS 818142 MELATONIN Inactive LAMOTRIGINE 100 MG TABS Take one (1) tablet by mouth twice a day LAMOTRIGINE 100 MG TABS 157864 LAMOTRIGINE Inactive LEXAPRO 20 MG TABS Take one by mouth daily LEXAPRO 20 MG TABS 687033 ESCITALOPRAM OXALATE Inactive ABILIFY 15 MG TABS 1 daily ABILIFY 15 MG TABS 765659 ARIPIPRAZOLE Inactive LATUDA 40 MG TABS 1 tablet daily LATUDA 40 MG TABS LURASIDONE HCL Inactive TRAZODONE HCL 100 MG TABS 1 tablet at bedtime TRAZODONE HCL 100 MG TABS 066729 TRAZODONE HCL Inactive REMERON 15 MG TABS 1 tablet daily REMERON 15 MG TABS 119334 MIRTAZAPINE Inactive TESSALON PERLES 100 MG CAP 1 tablet by mouth 3 times daily PRN cough TESSALON PERLES 100 MG CAP 014544 BENZONATATE Inactive VENTOLIN HFA 108 (90 BASE) MCG/ACT AERS 2 puffs four times a day PRN cough/ SOA VENTOLIN HFA 108 (90 BASE) MCG/ACT AERS ALBUTEROL SULFATE Inactive TRI-SPRINTEC 0.18/0.215/0.25 MG-35 MCG TABS 1 tablet po daily TRI-SPRINTEC 0.18/0.215/0.25 MG-35 MCG TABS 365205 NORGESTIM-ETH ESTRAD TRIPHASIC Inactive PRISTIQ 50 MG [id number] Take 1 tab in the evening for aniety and depression PRISTIQ 50 MG [id number]-BDA DESVENLAFAXINE SUCCINATE Inactive FANAPT 2 MG TABS take 2 tabs at bedtime FANAPT 2 MG TABS ILOPERIDONE Inactive HYDROXYZINE HCL 25 MG TABS 1 Q BID PRN HYDROXYZINE HCL 25 MG TABS 095109 HYDROXYZINE HCL Inactive ACETAMINOPHEN-CODEINE #3 300-30 MG TABS 1 pill q 6hrs prn pain ACETAMINOPHEN-CODEINE #3 300-30 MG TABS 467033 ACETAMINOPHEN- CODEINE Inactive AZITHROMYCIN 250 MG TABS 2 po qd x 1 day, then 1 po qd x 4 days AZITHROMYCIN 250 MG TABS 1199537 AZITHROMYCIN Inactive AMOXICILLIN 500 MG CAPS 2 po BID x 10 days AMOXICILLIN 500 MG CAPS 393261 AMOXICILLIN Inactive SINGULAIR 10 MG TABS 1 po qd PRN runny nose/congestion SINGULAIR 10 MG TABS 570854 MONTELUKAST SODIUM Inactive AMOXICILLIN 500 MG CAPS 2 po BID x 10 days AMOXICILLIN 500 MG CAPS 688312 AMOXICILLIN Inactive DOXYCYCLINE HYCLATE 100 MG CAP 1 cap by mouth twice daily DOXYCYCLINE HYCLATE 100 MG CAP 9399960 DOXYCYCLINE HYCLATE Inactive PREDNISONE 20 MG TAB 2 tabs daily for 3 days, 1 tab daily for 3 days, 1/2 tab daily for 2 days PREDNISONE 20 MG TAB 321754 PREDNISONE Inactive Immunizations Vaccine Administration Date Value Standard Description Seasonal influenza vaccine, injectable, preservative free, for > 3 years old ( Afluria, FluLaval, Fluzone, Fluvirin, Fluarix, Agriflu(>=18 yo)) Fluzone preservative free (>3 yrs.) [SXV614] Influenza, seasonal, injectable, preservative free Seasonal influenza vaccine, injectable, preservative free, for > 3 years old ( Afluria, FluLaval, Fluzone, Fluvirin, Fluarix, Agriflu(>=18 yo)) Fluzone preservative free (>3 yrs.) [[id number]] Influenza, seasonal, injectable, preservative free Hepatitis A [...] count 295 10^3/MM^3 10*3/mm3 142-424 [place] [facility] [place] human chorionic gonadotropin, urine, qualitative (urine test) Negative Negative Encounters Code Encounter Date Provider Facility CPT-55736 Level 3 Est. Patient 21:38:45 CDT Jared Maloney DO [facility] CPT-67368 Level 4 Est. Patient 18:13:37 MANAGER MARKET DEVELOPMENT Anitha Fournier MD [facility] CPT-54017 Level 3 Est. Patient 13:24:15 MANAGER MARKET DEVELOPMENT Anitha Fournier MD [facility] CPT-47231 Level 3 Est. Patient 08:50:05 CDT Jaida Shin MD [facility] CPT-95993 Level 3 Est. Patient 09:28:01 CDT Mabel Ozuna APRN [facility] CPT-54927 Level 3 Est. Patient 16:40:06 MANAGER MARKET DEVELOPMENT Anitha Fournier MD [facility] CPT-18980 Level 3 Est. Patient 12:36:13 CDT Anitha Fournier MD [facility] CPT-25641 Level 3 Est. Patient 18:37:20 CDT Anitha Fournier MD [facility] CPT-88435 Level 2 Est. Patient 13:42:23 CDT Anitha Fournier MD [facility] CPT-36825 Level 3 Est. Patient 16:20:08 CDT Anitha Fournier MD [facility] CPT-53833 Level 3 Est. Patient 10:48:04 CDT Jaida Shin MD [facility] CPT-33423 Level 4 Est. Patient 19:54:37 CDT Anitha Fournier MD [facility] CPT-26541 Level 3 Est. Patient 14:44:10 CDT Jaida Shin MD [facility] CPT-42850 Level 3 Est. Patient 18:39:52 MANAGER MARKET DEVELOPMENT Anitha Fournier MD [facility] CPT-02572 Level 2 Est. Patient 17:11:04 MANAGER MARKET DEVELOPMENT Jaida Shin MD [facility] CPT-08473 Level 3 Est. Patient 16:20:25 MANAGER MARKET DEVELOPMENT Jaida Shni MD [facility] Procedures Code Procedure Name Date Entry Date Standard Description CPT-04058 Administration single or combination vaccine inc oral 11 :29:34 CDT CPT-84174 Influenza Preservative Free split virus >age 3 11:29:34 CDT CPT-98346 Chest 2V Frontal and Lat 09:13:38 CDT CPT-71453 Abd single AP View 12:11:59 CDT CPT-06867 Sono abd com inc all organs plus proximal aorta and distal IVC 2011 09:05:56 CDT CPT-53926 Abd compl w upright 10:39:58 CDT CPT-J0696 Rocephin 500 mg (Ceftriaxone) 13:49:25 CDT CPT-30746 Abx/Therapy Injection 13:49:25 CDT CPT-J0696 Rocephin 500 mg (Ceftriaxone) 13:25:42 CDT CPT-52199 Abd single AP View 13:13:10 CDT CPT-000 Give Appropriate Flu Vaccine 17:02:34 MANAGER MARKET DEVELOPMENT CPT-000 Give Immunizations Due 17:02:34 MANAGER MARKET DEVELOPMENT CPT-57715 Administration 2+ single or combination vaccines inc oral 17:35:00 MANAGER MARKET DEVELOPMENT CPT-16958 Administration single or combination vaccine inc oral 17 :35:00 MANAGER MARKET DEVELOPMENT CPT-01234 Influenza Preservative Free split virus >age 3 17:35:00 MANAGER MARKET DEVELOPMENT CPT-72042 Hepatitis A ped/adol 2 dose schedule 17:35:00 MANAGER MARKET DEVELOPMENT 07/06 CPT-92989 Meningococcal Conjugate Vacine (Menactra) 17:35:00 MANAGER MARKET DEVELOPMENT CPT-L3908 Cockup Splint 16:20:25 MANAGER MARKET DEVELOPMENT CPT-64977 Hand comp min 3V 16:20:25 MANAGER MARKET DEVELOPMENT
--- OUTSIDE RECORDS SUMMARY | 2018-02-13 12:55 | XMS REPORT | Clinical Summary ---
Author Author Admin, ZULY Organization [facility] Address Unknown Phone Unavailable Allergies, Adverse Reactions, Alerts Allergy Name Reaction Description Start Date Severity Status Provider AMOXICILLIN Hives Severe Active Mabel Ozuna [employer] CONDITION[employer] CLONIDINE Critical Active Jaida Shin MD Conditions [...] Routine gynecological examination V72.31 Active Mabel Coolricardo [employer] Routine gynecological examination HAND PAIN, RIGHT ICD-729.5 [...] Generic Name NDC Status Provider Patient Instruction SPRINTEC 28 0.25-35 MG-MCG TABS 1 pill by mouth daily for control 01/05 NORGESTIMATE-ETH ESTRADIOL 84260844153 Active Mabel Ozuna APRN Active EQL IRON SUPPLEMENT THERAPY 325 MG ORAL TABS 1 tab po daily FERROUS SULFATE 58820767582 Active Mabel Ozuna APRN Active DAILY [employer] FORMULA ORAL TABS 1 tab po daily MULTIPLE VITAMINS-MINERALS 32764751830 Active Mabel Ozuna APRN Active BIOTIN 5000 MCG ORAL CAPS 3 caps po daily BIOTIN 69217091189 Active Mabel Ozuna APRN Active HYDROXYZINE HCL 25 MG TABS 1 Q BID PRN HYDROXYZINE HCL 43188905349 No Longer Active Mabel Ozuna APRN Active FANAPT 2 MG TABS take 2 tabs at bedtime ILOPERIDONE 07728351464 No Longer Active Mabel Ozuna APRN Active PRISTIQ 50 MG [id number] Take 1 tab in the evening for aniety and depression DESVENLAFAXINE SUCCINATE 17100489283 No Longer Active Mabel Ozuna APRN Active TRI-SPRINTEC 0.18/0.215/0.25 MG-35 MCG TABS 1 tablet po daily NORGESTIM-ETH ESTRAD TRIPHASIC 40012897451 No Longer Active Mabel Ozuna APRN Active PREDNISONE 20 MG TAB 2 tabs daily for 3 days, 1 tab daily for 3 days, 1/2 tab daily for 2 days PREDNISONE 83058684329 No Longer Active Jared Maloney DO Active VENTOLIN HFA 108 (90 BASE) MCG/ACT AERS 2 puffs four times a day PRN cough/ SOA ALBUTEROL SULFATE 25399128423 No Longer Active Jared Maloney DO Active TESSALON PERLES 100 MG CAP 1 tablet by mouth 3 times daily PRN cough BENZONATATE 20768386938 No Longer Active Jared Maloney DO Active REMERON 15 MG TABS 1 tablet daily MIRTAZAPINE 11878474710 No Longer Active Jared Maloney DO Active DOXYCYCLINE HYCLATE 100 MG CAP 1 cap by mouth twice daily DOXYCYCLINE HYCLATE 67344155656 No Longer Active Anitha Fournier MD PhD Active [facility] IBUPROFEN 200 MG CAPS 1 tid, PRN IBUPROFEN 49505660439 Active Anitha Fournier MD PhD Active TRAZODONE HCL 100 MG TABS 1 tablet at bedtime TRAZODONE HCL 24907555447 No Longer Active Jaida Shin MD Active LATUDA 40 MG TABS 1 tablet daily LURASIDONE HCL 49625782398 No Longer Active Jaida Shin MD Active ABILIFY 15 MG TABS 1 daily ARIPIPRAZOLE 55887583270 No Longer Active Fadi Blanco MD Active AMOXICILLIN 500 MG CAPS 2 po BID x 10 days AMOXICILLIN 97189309087 No Longer Active Anitha Fournier MD PhD Active SINGULAIR 10 MG TABS 1 po qd PRN runny nose/congestion MONTELUKAST SODIUM 62867191897 No Longer Active Anitha Fournier MD PhD Active AMOXICILLIN 500 MG CAPS 2 po BID x 10 days AMOXICILLIN 57645809180 No Longer Active Anitha Fournier MD PhD Active LEXAPRO 20 MG TABS Take one by mouth daily ESCITALOPRAM OXALATE 82113384837 No Longer Active Anitha Fournier MD PhD Active LAMOTRIGINE 100 MG TABS Take one (1) tablet by mouth twice a day LAMOTRIGINE 15686596050 No Longer Active Anitha Fournier MD PhD Active MELATONIN 5 MG TABS Take 1 tablet by mouth daily MELATONIN 41127763215 No Longer Active Anitha Fournier MD PhD Active MULTIVITAMINS TABS Take 1 tablet by mouth daily MULTIPLE VITAMIN 57482264002 No Longer Active Anitha Fournier MD PhD Active NYSTATIN 387977 UNIT/GM CREA apply to rash TID PRN NYSTATIN 27259822563 No Longer Active Anitha Fournier MD PhD Active AZITHROMYCIN 250 MG TABS 2 po qd x 1 day, then 1 po qd x 4 days AZITHROMYCIN 57940481458 No Longer Active Anitha Fournier MD PhD Active TRAZODONE HCL 50 MG TABS 1/2 @ HS TRAZODONE HCL 50644156159 No Longer Active Jaida Shin MD Active CYPROHEPTADINE HCL 4 MG TABS 1 tablet po at hs CYPROHEPTADINE HCL 04117787338 No Longer Active Anitha Fournier MD PhD Active HYDROXYZINE HCL 50 MG TABS 1-2 tabs po at hs HYDROXYZINE HCL 70977278928 No Longer Active Anitha Fournier MD PhD Active CONCERTA 27 MG CR-TABS 1 tablet daily METHYLPHENIDATE HCL 40493845260 No Longer Active Anitha Fournier MD PhD Active ACETAMINOPHEN-CODEINE #3 300-30 MG TABS 1 pill q 6hrs prn pain ACETAMINOPHEN-CODEINE 74019858884 No Longer Active Jaida Shin MD Active CONCERTA 27 MG CR-TABS 1 tablet daily CONCERTA 27 MG CR-TABS METHYLPHENIDATE HCL Inactive HYDROXYZINE HCL 50 MG TABS 1-2 tabs po at hs HYDROXYZINE HCL 50 MG TABS 633241 HYDROXYZINE HCL Inactive CYPROHEPTADINE HCL 4 MG TABS 1 tablet po at hs CYPROHEPTADINE HCL 4 MG TABS 438504 CYPROHEPTADINE HCL Inactive TRAZODONE HCL 50 MG TABS 1/2 @ HS TRAZODONE HCL 50 MG TABS 733591 TRAZODONE HCL Inactive NYSTATIN 485299 UNIT/GM CREA apply to rash TID PRN NYSTATIN 352181 UNIT/GM CREA 940371 NYSTATIN Inactive MULTIVITAMINS TABS Take 1 tablet by mouth daily MULTIVITAMINS TABS MULTIPLE VITAMIN Inactive MELATONIN 5 MG TABS Take 1 tablet by mouth daily MELATONIN 5 MG TABS 821892 MELATONIN Inactive LAMOTRIGINE 100 MG TABS Take one (1) tablet by mouth twice a day LAMOTRIGINE 100 MG TABS 257351 LAMOTRIGINE Inactive LEXAPRO 20 MG TABS Take one by mouth daily LEXAPRO 20 MG TABS 088810 ESCITALOPRAM OXALATE Inactive ABILIFY 15 MG TABS 1 daily ABILIFY 15 MG TABS 799988 ARIPIPRAZOLE Inactive LATUDA 40 MG TABS 1 tablet daily LATUDA 40 MG TABS LURASIDONE HCL Inactive TRAZODONE HCL 100 MG TABS 1 tablet at bedtime TRAZODONE HCL 100 MG TABS 991219 TRAZODONE HCL Inactive REMERON 15 MG TABS 1 tablet daily REMERON 15 MG TABS 417456 MIRTAZAPINE Inactive TESSALON PERLES 100 MG CAP 1 tablet by mouth 3 times daily PRN cough TESSALON PERLES 100 MG CAP 794247 BENZONATATE Inactive VENTOLIN HFA 108 (90 BASE) MCG/ACT AERS 2 puffs four times a day PRN cough/ SOA VENTOLIN HFA 108 (90 BASE) MCG/ACT AERS ALBUTEROL SULFATE Inactive TRI-SPRINTEC 0.18/0.215/0.25 MG-35 MCG TABS 1 tablet po daily TRI-SPRINTEC 0.18/0.215/0.25 MG-35 MCG TABS 083146 NORGESTIM-ETH ESTRAD TRIPHASIC Inactive PRISTIQ 50 MG [id number] Take 1 tab in the evening for aniety and depression PRISTIQ 50 MG [id number] DESVENLAFAXINE SUCCINATE Inactive FANAPT 2 MG TABS take 2 tabs at bedtime FANAPT 2 MG TABS ILOPERIDONE Inactive HYDROXYZINE HCL 25 MG TABS 1 Q BID PRN HYDROXYZINE HCL 25 MG TABS 212849 HYDROXYZINE HCL Inactive ACETAMINOPHEN-CODEINE #3 300-30 MG TABS 1 pill q 6hrs prn pain ACETAMINOPHEN-CODEINE #3 300-30 MG TABS 324373 ACETAMINOPHEN- CODEINE Inactive AZITHROMYCIN 250 MG TABS 2 po qd x 1 day, then 1 po qd x 4 days AZITHROMYCIN 250 MG TABS 5674133 AZITHROMYCIN Inactive AMOXICILLIN 500 MG CAPS 2 po BID x 10 days AMOXICILLIN 500 MG CAPS 179401 AMOXICILLIN Inactive SINGULAIR 10 MG TABS 1 po qd PRN runny nose/congestion SINGULAIR 10 MG TABS 212469 MONTELUKAST SODIUM Inactive AMOXICILLIN 500 MG CAPS 2 po BID x 10 days AMOXICILLIN 500 MG CAPS 765550 AMOXICILLIN Inactive DOXYCYCLINE HYCLATE 100 MG CAP 1 cap by mouth twice daily DOXYCYCLINE HYCLATE 100 MG CAP 5991165 DOXYCYCLINE HYCLATE Inactive PREDNISONE 20 MG TAB 2 tabs daily for 3 days, 1 tab daily for 3 days, 1/2 tab daily for 2 days PREDNISONE 20 MG TAB 854642 PREDNISONE Inactive Advance Directives Directive Description Start Date PERMISSION TO SHARE Immunizations Vaccine Administration Date Value Standard Description Seasonal influenza vaccine, injectable, preservative free, for > 3 years old ( Afluria, FluLaval, Fluzone, Fluvirin, Fluarix, Agriflu(>=18 yo)) Fluzone preservative free (>3 yrs.) [GOO072] Influenza, seasonal, injectable, preservative free Seasonal influenza vaccine, injectable, preservative free, for > 3 years old ( Afluria, FluLaval, Fluzone, Fluvirin, Fluarix, Agriflu(>=18 yo)) Fluzone preservative free (>3 yrs.) [[id number]] Influenza, seasonal, injectable, preservative free Hepatitis A [...] given Historical hepatitis B vaccine, unspecified formulation Vital Signs Date Name Value Unit Range Description blood pressure, diastolic - 8462-4 79 mm[Hg] BP castillo blood pressure, systolic - 8480-6 118 mm[Hg] BP sys pulse rate E&M - 8867-4 89 /min Heart rate temperature E&M 97.4 [degF] Body temperature weight E&M - 3141-9 116 [lb_av] Weight Measured Diagnostic Results Date Name Value Unit Range [...] 295 10^3/MM^3 10*3/mm3 142-424 Lab Report: Chlamydia/GC [facility]TIM[facility]/[id number] - Lab chlamydia DNA probe NOT DETECTED NOT DETECTED Lab Report: Chlamydia/GC [facility]TIM[facility]/93664 - Microbiology Neisseria gonorrhoeae DNA probe NOT DETECTED NOT DETECTED [place] [facility] [place] human chorionic gonadotropin, urine, qualitative (urine test) Negative Negative human chorionic gonadotropin, urine, qualitative (urine test) Negative Negative Encounters Code Encounter Date Provider Facility CPT-38154 Level 3 Est. Patient 21:38:45 CDT Jared Maloney DO [facility] CPT-41995 Level 4 Est. Patient 18:13:37 FIRER LOW PRESSURE Anitha Fournier MD [facility] CPT-40950 Level 3 Est. Patient 13:24:15 FIRER LOW PRESSURE Anitha Fournier MD PhD [facility]-75860 Level 3 Est. Patient 08:50:05 CDT Jaida Shin MD [facility]-29568 Level 3 Est. Patient 09:28:01 CDT Mabel Ozuna APRN [facility]-04603 Level 3 Est. Patient 16:40:06 FIRER LOW PRESSURE Anitha Fournier MD [facility]-23716 Level 3 Est. Patient 12:36:13 CDT Anitha Fournier MD [facility]-98115 Level 3 Est. Patient 18:37:20 CDT Anitha Fournier MD PhD [facility]-64203 Level 2 Est. Patient 13:42:23 CDT Anitha Fournier MD [facility] [place] Level 3 Est. Patient 16:20:08 CDT Anitha Fournier MD [facility] CPT-62602 Level 3 Est. Patient 10:48:04 CDT Jaida Shin MD [facility] CPT-10113 Level 4 Est. Patient 19:54:37 CDT Anitha Fournier MD [facility] CPT-38807 Level 3 Est. Patient 14:44:10 CDT Jaida Shin MD [facility] CPT-16327 Level 3 Est. Patient 18:39:52 FIRER LOW PRESSURE Anitha Fournier MD [facility] CPT-04817 Level 2 Est. Patient 17:11:04 FIRER LOW PRESSURE Jaida Shin MD [facility] CPT-00245 Level 3 Est. Patient 16:20:25 FIRER LOW PRESSURE Jaida Shin MD [facility] Procedures Code Procedure Name Date Entry Date Standard Description CPT-05207 Administration single or combination vaccine inc oral 11 :29:34 CDT CPT-10765 Influenza Preservative Free split virus >age 3 11:29:34 CDT CPT-67260 Chest 2V Frontal and Lat 09:13:38 CDT CPT-19230 Abd single AP View 12:11:59 CDT CPT-90019 Sono abd com inc all organs plus proximal aorta and distal IVC 2011 09:05:56 CDT CPT-75854 Abd compl w upright 10:39:58 CDT CPT-J0696 Rocephin 500 mg (Ceftriaxone) 13:49:25 CDT CPT-45183 Abx/Therapy Injection 13:49:25 CDT CPT-J0696 Rocephin 500 mg (Ceftriaxone) 13:25:42 CDT CPT-07257 Abd single AP View 13:13:10 CDT CPT-000 Give Appropriate Flu Vaccine 17:02:34 FIRER LOW PRESSURE CPT-000 Give Immunizations Due 17:02:34 FIRER LOW PRESSURE CPT-51099 Administration 2+ single or combination vaccines inc oral 17:35:00 FIRER LOW PRESSURE CPT-42233 Administration single or combination vaccine inc oral 17 :35:00 FIRER LOW PRESSURE CPT-17655 Influenza Preservative Free split virus >age 3 17:35:00 FIRER LOW PRESSURE CPT-38783 Hepatitis A ped/adol 2 dose schedule 17:35:00 FIRER LOW PRESSURE 07/06 CPT-56860 Meningococcal Conjugate Vacine (Menactra) 17:35:00 FIRER LOW PRESSURE CPT-L3908 Cockup Splint 16:20:25 FIRER LOW PRESSURE CPT-30947 Hand comp min 3V 16:20:25 FIRER LOW PRESSURE
--- OUTSIDE RECORDS SUMMARY | 2018-02-13 12:55 | XMS REPORT | Clinical Summary ---
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 Routine gynecological examination HAND PAIN, RIGHT ICD-729.5 [...] TABS 1 tab po daily FERROUS SULFATE 58655335584 Active Mabel Ozuna APRN Active DAILY [employer] FORMULA ORAL TABS 1 tab po daily MULTIPLE VITAMINS-MINERALS 04305963574 Active Mabel Ozuna APRN Active BIOTIN 5000 MCG ORAL CAPS 3 caps po daily BIOTIN 19418660683 Active Mabel Ozuna APRN Active HYDROXYZINE HCL 25 MG TABS 1 Q BID PRN HYDROXYZINE HCL 06217773575 No Longer Active Mabel Ozuna APRN Active FANAPT 2 MG TABS take 2 tabs at bedtime ILOPERIDONE 16135570002 No Longer Active Kyraina Laith TAN Active PRISTIQ 50 MG [id number] Take 1 tab in the evening for aniety and depression DESVENLAFAXINE SUCCINATE 73458743369 No Longer Active Mabel Ozuna APRN Active TRI-SPRINTEC 0.18/0.215/0.25 MG-35 MCG TABS 1 tablet po daily NORGESTIM-ETH ESTRAD TRIPHASIC 88389862215 No Longer Active Mabel Ozuna APRN Active PREDNISONE 20 MG TAB 2 tabs daily for 3 days, 1 tab daily for 3 days, 1/2 tab daily for 2 days PREDNISONE 20528910425 No Longer Active Jared Maloney DO Active VENTOLIN HFA 108 (90 BASE) MCG/ACT AERS 2 puffs four times a day PRN cough/ SOA ALBUTEROL SULFATE 46021843465 No Longer Active Jared Maloney DO Active TESSALON PERLES 100 MG CAP 1 tablet by mouth 3 times daily PRN cough BENZONATATE 36643925044 No Longer Active Jared Maloney DO Active REMERON 15 MG TABS 1 tablet daily MIRTAZAPINE 68148294250 No Longer Active Jared Maloney DO Active DOXYCYCLINE HYCLATE 100 MG CAP 1 cap by mouth twice daily DOXYCYCLINE HYCLATE 07929844089 No Longer Active Anitha Fournier MD PhD Active [facility] IBUPROFEN 200 MG CAPS 1 tid, PRN IBUPROFEN 88623504336 Active Anitha Fournier MD PhD Active TRAZODONE HCL 100 MG TABS 1 tablet at bedtime TRAZODONE HCL 73896755701 No Longer Active Jaida Shin MD Active LATUDA 40 MG TABS 1 tablet daily LURASIDONE HCL 02017310680 No Longer Active Jaida Shin MD Active ABILIFY 15 MG TABS 1 daily ARIPIPRAZOLE 31779945846 No Longer Active Fadi Blanco MD Active AMOXICILLIN 500 MG CAPS 2 po BID x 10 days AMOXICILLIN 77811688163 No Longer Active Anitha Fournier MD PhD Active SINGULAIR 10 MG TABS 1 po qd PRN runny nose/congestion MONTELUKAST SODIUM 29969924881 No Longer Active Anitha Fournier MD PhD Active AMOXICILLIN 500 MG CAPS 2 po BID x 10 days AMOXICILLIN 06543687915 No Longer Active Anitha Fournier MD PhD Active LEXAPRO 20 MG TABS Take one by mouth daily ESCITALOPRAM OXALATE 12465576873 No Longer Active Anitha Fournier MD PhD Active LAMOTRIGINE 100 MG TABS Take one (1) tablet by mouth twice a day LAMOTRIGINE 91162709064 No Longer Active Anitha Forunier MD PhD Active MELATONIN 5 MG TABS Take 1 tablet by mouth daily MELATONIN 68445920248 No Longer Active Anitha Fournier MD PhD Active MULTIVITAMINS TABS Take 1 tablet by mouth daily MULTIPLE VITAMIN 77920226384 No Longer Active Anitha Fournier MD PhD Active NYSTATIN 089696 UNIT/GM CREA apply to rash TID PRN NYSTATIN 02808008012 No Longer Active Anitha Fournier MD PhD Active AZITHROMYCIN 250 MG TABS 2 po qd x 1 day, then 1 po qd x 4 days AZITHROMYCIN 12813013099 No Longer Active Anitha Fournier MD PhD Active TRAZODONE HCL 50 MG TABS 1/2 @ HS TRAZODONE HCL 80432716867 No Longer Active Jaida Shin MD Active CYPROHEPTADINE HCL 4 MG TABS 1 tablet po at hs CYPROHEPTADINE HCL 59615173008 No Longer Active Anitha Fournier MD PhD Active HYDROXYZINE HCL 50 MG TABS 1-2 tabs po at hs HYDROXYZINE HCL 91088515081 No Longer Active Anitha Fournier MD PhD Active CONCERTA 27 MG CR-TABS 1 tablet daily METHYLPHENIDATE HCL 11972452393 No Longer Active Anitha Fournier MD PhD Active ACETAMINOPHEN-CODEINE #3 300-30 MG TABS 1 pill q 6hrs prn pain ACETAMINOPHEN-CODEINE 13158960426 No Longer Active Jaida Shin MD Active CONCERTA 27 MG CR-TABS 1 tablet daily CONCERTA 27 MG CR-TABS METHYLPHENIDATE HCL Inactive HYDROXYZINE HCL 50 MG TABS 1-2 tabs po at hs HYDROXYZINE HCL 50 MG TABS 922406 HYDROXYZINE HCL Inactive CYPROHEPTADINE HCL 4 MG TABS 1 tablet po at hs CYPROHEPTADINE HCL 4 MG TABS 173759 CYPROHEPTADINE HCL Inactive TRAZODONE HCL 50 MG TABS 1/2 @ HS TRAZODONE HCL 50 MG TABS 312508 TRAZODONE HCL Inactive NYSTATIN 421233 UNIT/GM CREA apply to rash TID PRN NYSTATIN 037546 UNIT/GM CREA 722276 NYSTATIN Inactive MULTIVITAMINS TABS Take 1 tablet by mouth daily MULTIVITAMINS TABS MULTIPLE VITAMIN Inactive MELATONIN 5 MG TABS Take 1 tablet by mouth daily MELATONIN 5 MG TABS 666377 MELATONIN Inactive LAMOTRIGINE 100 MG TABS Take one (1) tablet by mouth twice a day LAMOTRIGINE 100 MG TABS 145565 LAMOTRIGINE Inactive LEXAPRO 20 MG TABS Take one by mouth daily LEXAPRO 20 MG TABS 840527 ESCITALOPRAM OXALATE Inactive ABILIFY 15 MG TABS 1 daily ABILIFY 15 MG TABS 875655 ARIPIPRAZOLE Inactive LATUDA 40 MG TABS 1 tablet daily LATUDA 40 MG TABS LURASIDONE HCL Inactive TRAZODONE HCL 100 MG TABS 1 tablet at bedtime TRAZODONE HCL 100 MG TABS 248364 TRAZODONE HCL Inactive REMERON 15 MG TABS 1 tablet daily REMERON 15 MG TABS 289157 MIRTAZAPINE Inactive TESSALON PERLES 100 MG CAP 1 tablet by mouth 3 times daily PRN cough TESSALON PERLES 100 MG CAP 698459 BENZONATATE Inactive VENTOLIN HFA 108 (90 BASE) MCG/ACT AERS 2 puffs four times a day PRN cough/ SOA VENTOLIN HFA 108 (90 BASE) MCG/ACT AERS ALBUTEROL SULFATE Inactive TRI-SPRINTEC 0.18/0.215/0.25 MG-35 MCG TABS 1 tablet po daily TRI-SPRINTEC 0.18/0.215/0.25 MG-35 MCG TABS 428769 NORGESTIM-ETH ESTRAD TRIPHASIC Inactive PRISTIQ 50 MG [id number]-HHH Take 1 tab in the evening for aniety and depression PRISTIQ 50 MG [id number] DESVENLAFAXINE SUCCINATE Inactive FANAPT 2 MG TABS take 2 tabs at bedtime FANAPT 2 MG TABS ILOPERIDONE Inactive HYDROXYZINE HCL 25 MG TABS 1 Q BID PRN HYDROXYZINE HCL 25 MG TABS 542299 HYDROXYZINE HCL Inactive ACETAMINOPHEN-CODEINE #3 300-30 MG TABS 1 pill q 6hrs prn pain ACETAMINOPHEN-CODEINE #3 300-30 MG TABS 147431 ACETAMINOPHEN- CODEINE Inactive AZITHROMYCIN 250 MG TABS 2 po qd x 1 day, then 1 po qd x 4 days AZITHROMYCIN 250 MG TABS 7598257 AZITHROMYCIN Inactive AMOXICILLIN 500 MG CAPS 2 po BID x 10 days AMOXICILLIN 500 MG CAPS 770742 AMOXICILLIN Inactive SINGULAIR 10 MG TABS 1 po qd PRN runny nose/congestion SINGULAIR 10 MG TABS 207769 MONTELUKAST SODIUM Inactive AMOXICILLIN 500 MG CAPS 2 po BID x 10 days AMOXICILLIN 500 MG CAPS 602179 AMOXICILLIN Inactive DOXYCYCLINE HYCLATE 100 MG CAP 1 cap by mouth twice daily DOXYCYCLINE HYCLATE 100 MG CAP 3538129 DOXYCYCLINE HYCLATE Inactive PREDNISONE 20 MG TAB 2 tabs daily for 3 days, 1 tab daily for 3 days, 1/2 tab daily for 2 days PREDNISONE 20 MG TAB 090905 PREDNISONE Inactive Immunizations Vaccine Administration Date Value Standard Description Seasonal influenza vaccine, injectable, preservative free, for > 3 years old ( Afluria, FluLaval, Fluzone, Fluvirin, Fluarix, Agriflu(>=18 yo)) Fluzone preservative free (>3 yrs.) [[id number]] Influenza, seasonal, injectable, preservative free Seasonal influenza vaccine, injectable, preservative free, for > 3 years old ( Afluria, FluLaval, Fluzone, Fluvirin, Fluarix, Agriflu(>=18 yo)) Fluzone preservative free (>3 yrs.) [SYO153] Influenza, seasonal, injectable, preservative free Hepatitis A [...] 295 10^3/MM^3 10*3/mm3 142-424 Lab Report: Chlamydia/GC [facility]/48984 - Lab chlamydia DNA probe NOT DETECTED NOT DETECTED Lab Report: Chlamydia/GC [facility]TIM[facility]/51930 - Microbiology Neisseria gonorrhoeae DNA probe NOT DETECTED NOT DETECTED Lab Report: [facility] [place] - Chemistry human chorionic gonadotropin, urine, qualitative (urine test) Negative Negative Encounters Code Encounter Date Provider Facility CPT-95551 Level 3 Est. Patient 21:38:45 CDT Jared Stover Haider GOMEZ [facility] CPT-83000 Level 4 Est. Patient 18:13:37 FURNACE CLEANER Anitha Fournier MD [facility]-95100 Level 3 Est. Patient 13:24:15 FURNACE CLEANER Anitha Fournier MD [facility]-28712 Level 3 Est. Patient 08:50:05 CDT Jaida Shin MD [facility]-20276 Level 3 Est. Patient 09:28:01 CDT Mabel Ozuna APRN [facility]-89737 Level 3 Est. Patient 16:40:06 FURNACE CLEANER Anitha Fournier MD [facility]-94356 Level 3 Est. Patient 12:36:13 CDT Anitha Fournier MD [facility]-92092 Level 3 Est. Patient 18:37:20 CDT Anitha Fournier MD [facility]-59169 Level 2 Est. Patient 13:42:23 CDT Anitha Fournier MD [facility]-42538 Level 3 Est. Patient 16:20:08 CDT Anitha Fournier MD [facility]-94505 Level 3 Est. Patient 10:48:04 CDT Jaida Shin MD [facility]-41992 Level 4 Est. Patient 19:54:37 CDT Anitha Fournier MD [facility]-27189 Level 3 Est. Patient 14:44:10 CDT Jaida Shin MD [facility]-59768 Level 3 Est. Patient 18:39:52 FURNACE CLEANER Anitha Fournier MD [facility]-70894 Level 2 Est. Patient 17:11:04 FURNACE CLEANER Jaida Shin MD [facility] CPT-04156 Level 3 Est. Patient 16:20:25 FURNACE CLEANER Jaida Shin MD [facility] Procedures Code Procedure Name Date Entry Date Standard Description CPT-20133 Administration single or combination vaccine inc oral 11 :29:34 CDT CPT-99865 Influenza Preservative Free split virus >age 3 11:29:34 CDT CPT-05253 Chest 2V Frontal and Lat 09:13:38 CDT CPT-86180 Abd single AP View 12:11:59 CDT CPT-16842 Sono abd com inc all organs plus proximal aorta and distal IVC 2011 09:05:56 CDT CPT-23697 Abd compl w upright 10:39:58 CDT CPT-J0696 Rocephin 500 mg (Ceftriaxone) 13:49:25 CDT CPT-26929 Abx/Therapy Injection 13:49:25 CDT CPT-J0696 Rocephin 500 mg (Ceftriaxone) 13:25:42 CDT CPT-79653 Abd single AP View 13:13:10 CDT CPT-000 Give Appropriate Flu Vaccine 17:02:34 FURNACE CLEANER CPT-000 Give Immunizations Due 17:02:34 FURNACE CLEANER CPT-80075 Administration 2+ single or combination vaccines inc oral 17:35:00 FURNACE CLEANER CPT-92088 Administration single or combination vaccine inc oral 17 :35:00 FURNACE CLEANER CPT-31484 Influenza Preservative Free split virus >age 3 17:35:00 FURNACE CLEANER CPT-44110 Hepatitis A ped/adol 2 dose schedule 17:35:00 FURNACE CLEANER 07/06 CPT-50646 Meningococcal Conjugate Vacine (Menactra) 17:35:00 FURNACE CLEANER CPT-L3908 Cockup Splint 16:20:25 FURNACE CLEANER CPT-52364 Hand comp min 3V 16:20:25 FURNACE CLEANER
--- OUTSIDE RECORDS SUMMARY | 2018-02-13 12:56 | XMS REPORT | Clinical Summary ---
Author Author Admin, ZULY Organization [facility] Address Unknown Phone Unavailable Allergies, Adverse Reactions, Alerts Allergy Name Reaction Description Start Date Severity Status Provider AMOXICILLIN Hives Severe Active Mabel Ozuna MAINTENANCE MGR CLONIDINE Critical Active Jaida Shin MD Conditions [...] Routine gynecological examination V72.31 Active Mabel Coolricardo MAINTENANCE MGR Routine gynecological examination HAND PAIN, RIGHT ICD-729.5 [...] MD PhD CHLAMYDIAL INFECTION ICD-099.41 Inactive Anitha Forunier MD PhD PELVIC INFLAMMATORY DISEASE, ACUTE ICD-614.9 [...] TABS 1 tab po daily FERROUS SULFATE 22617561369 Active Mabel Ozuna APRN Active DAILY W[employer] HE[employer] FORMULA ORAL TABS 1 tab po daily MULTIPLE VITAMINS-MINERALS 47497877077 Active Mabel Ozuna APRN Active BIOTIN 5000 MCG ORAL CAPS 3 caps po daily BIOTIN 29485091787 Active Mabel Ozuna APRN Active HYDROXYZINE HCL 25 MG TABS 1 Q BID PRN HYDROXYZINE HCL 43920174518 No Longer Active Mabel Ozuna APRN Active FANAPT 2 MG TABS take 2 tabs at bedtime ILOPERIDONE 68890530727 No Longer Active Kyraina Laith TAN Active PRISTIQ 50 MG [id number] Take 1 tab in the evening for aniety and depression DESVENLAFAXINE SUCCINATE 42648111431 No Longer Active Mabel Ozuna APRN Active TRI-SPRINTEC 0.18/0.215/0.25 MG-35 MCG TABS 1 tablet po daily NORGESTIM-ETH ESTRAD TRIPHASIC 40924268927 No Longer Active Mabel Ozuna APRN Active PREDNISONE 20 MG TAB 2 tabs daily for 3 days, 1 tab daily for 3 days, 1/2 tab daily for 2 days PREDNISONE 76584259146 No Longer Active Jared Maloney DO Active VENTOLIN HFA 108 (90 BASE) MCG/ACT AERS 2 puffs four times a day PRN cough/ SOA ALBUTEROL SULFATE 68382879458 No Longer Active Jared Maloney DO Active TESSALON PERLES 100 MG CAP 1 tablet by mouth 3 times daily PRN cough BENZONATATE 52070030344 No Longer Active Jared Maloney DO Active REMERON 15 MG TABS 1 tablet daily MIRTAZAPINE 64730635958 No Longer Active Jared Maloney DO Active DOXYCYCLINE HYCLATE 100 MG CAP 1 cap by mouth twice daily DOXYCYCLINE HYCLATE 75077313395 No Longer Active Anitha Fournier MD PhD Active [facility] IBUPROFEN 200 MG CAPS 1 tid, PRN IBUPROFEN 18649551438 Active Anitha Fournier MD PhD Active TRAZODONE HCL 100 MG TABS 1 tablet at bedtime TRAZODONE HCL 43691801426 No Longer Active Jaida Shin MD Active LATUDA 40 MG TABS 1 tablet daily LURASIDONE HCL 87075690069 No Longer Active Jaida Shin MD Active ABILIFY 15 MG TABS 1 daily ARIPIPRAZOLE 45889442083 No Longer Active Fadi Blanco MD Active AMOXICILLIN 500 MG CAPS 2 po BID x 10 days AMOXICILLIN 63851831471 No Longer Active Anitha Fournier MD PhD Active SINGULAIR 10 MG TABS 1 po qd PRN runny nose/congestion MONTELUKAST SODIUM 33857823937 No Longer Active Anitha Fournier MD PhD Active AMOXICILLIN 500 MG CAPS 2 po BID x 10 days AMOXICILLIN 12714054962 No Longer Active Anitha Fournier MD PhD Active LEXAPRO 20 MG TABS Take one by mouth daily ESCITALOPRAM OXALATE 08451371591 No Longer Active Anitha Fournier MD PhD Active LAMOTRIGINE 100 MG TABS Take one (1) tablet by mouth twice a day LAMOTRIGINE 87052064852 No Longer Active Anitha Fournier MD PhD Active MELATONIN 5 MG TABS Take 1 tablet by mouth daily MELATONIN 25509620355 No Longer Active Anitha Fournier MD PhD Active MULTIVITAMINS TABS Take 1 tablet by mouth daily MULTIPLE VITAMIN 56030047422 No Longer Active Anitha Fournier MD PhD Active NYSTATIN 675569 UNIT/GM CREA apply to rash TID PRN NYSTATIN 42384805110 No Longer Active Anitha Fournier MD PhD Active AZITHROMYCIN 250 MG TABS 2 po qd x 1 day, then 1 po qd x 4 days AZITHROMYCIN 77274409567 No Longer Active Anitha Fournier MD PhD Active TRAZODONE HCL 50 MG TABS 1/2 @ HS TRAZODONE HCL 34492914866 No Longer Active Jaida Shin MD Active CYPROHEPTADINE HCL 4 MG TABS 1 tablet po at hs CYPROHEPTADINE HCL 96917556136 No Longer Active Anitha Fournier MD PhD Active HYDROXYZINE HCL 50 MG TABS 1-2 tabs po at hs HYDROXYZINE HCL 45834127785 No Longer Active Anitha Fournier MD PhD Active CONCERTA 27 MG CR-TABS 1 tablet daily METHYLPHENIDATE HCL 32937182437 No Longer Active Anitha Fournier MD PhD Active ACETAMINOPHEN-CODEINE #3 300-30 MG TABS 1 pill q 6hrs prn pain ACETAMINOPHEN-CODEINE 20409108209 No Longer Active Jaida Shin MD Active CONCERTA 27 MG CR-TABS 1 tablet daily CONCERTA 27 MG CR-TABS METHYLPHENIDATE HCL Inactive HYDROXYZINE HCL 50 MG TABS 1-2 tabs po at hs HYDROXYZINE HCL 50 MG TABS 399316 HYDROXYZINE HCL Inactive CYPROHEPTADINE HCL 4 MG TABS 1 tablet po at hs CYPROHEPTADINE HCL 4 MG TABS 044725 CYPROHEPTADINE HCL Inactive TRAZODONE HCL 50 MG TABS 1/2 @ HS TRAZODONE HCL 50 MG TABS 177504 TRAZODONE HCL Inactive NYSTATIN 540753 UNIT/GM CREA apply to rash TID PRN NYSTATIN 790958 UNIT/GM CREA 533980 NYSTATIN Inactive MULTIVITAMINS TABS Take 1 tablet by mouth daily MULTIVITAMINS TABS MULTIPLE VITAMIN Inactive MELATONIN 5 MG TABS Take 1 tablet by mouth daily MELATONIN 5 MG TABS 413331 MELATONIN Inactive LAMOTRIGINE 100 MG TABS Take one (1) tablet by mouth twice a day LAMOTRIGINE 100 MG TABS 973344 LAMOTRIGINE Inactive LEXAPRO 20 MG TABS Take one by mouth daily LEXAPRO 20 MG TABS 760396 ESCITALOPRAM OXALATE Inactive ABILIFY 15 MG TABS 1 daily ABILIFY 15 MG TABS 351878 ARIPIPRAZOLE Inactive LATUDA 40 MG TABS 1 tablet daily LATUDA 40 MG TABS LURASIDONE HCL Inactive TRAZODONE HCL 100 MG TABS 1 tablet at bedtime TRAZODONE HCL 100 MG TABS 619596 TRAZODONE HCL Inactive REMERON 15 MG TABS 1 tablet daily REMERON 15 MG TABS 601529 MIRTAZAPINE Inactive TESSALON PERLES 100 MG CAP 1 tablet by mouth 3 times daily PRN cough TESSALON PERLES 100 MG CAP 493393 BENZONATATE Inactive VENTOLIN HFA 108 (90 BASE) MCG/ACT AERS 2 puffs four times a day PRN cough/ SOA VENTOLIN HFA 108 (90 BASE) MCG/ACT AERS ALBUTEROL SULFATE Inactive TRI-SPRINTEC 0.18/0.215/0.25 MG-35 MCG TABS 1 tablet po daily TRI-SPRINTEC 0.18/0.215/0.25 MG-35 MCG TABS 239941 NORGESTIM-ETH ESTRAD TRIPHASIC Inactive PRISTIQ 50 MG [id number] Take 1 tab in the evening for aniety and depression PRISTIQ 50 MG [id number] DESVENLAFAXINE SUCCINATE Inactive FANAPT 2 MG TABS take 2 tabs at bedtime FANAPT 2 MG TABS ILOPERIDONE Inactive HYDROXYZINE HCL 25 MG TABS 1 Q BID PRN HYDROXYZINE HCL 25 MG TABS 215066 HYDROXYZINE HCL Inactive ACETAMINOPHEN-CODEINE #3 300-30 MG TABS 1 pill q 6hrs prn pain ACETAMINOPHEN-CODEINE #3 300-30 MG TABS 156261 ACETAMINOPHEN- CODEINE Inactive AZITHROMYCIN 250 MG TABS 2 po qd x 1 day, then 1 po qd x 4 days AZITHROMYCIN 250 MG TABS 2762191 AZITHROMYCIN Inactive AMOXICILLIN 500 MG CAPS 2 po BID x 10 days AMOXICILLIN 500 MG CAPS 875843 AMOXICILLIN Inactive SINGULAIR 10 MG TABS 1 po qd PRN runny nose/congestion SINGULAIR 10 MG TABS 949852 MONTELUKAST SODIUM Inactive AMOXICILLIN 500 MG CAPS 2 po BID x 10 days AMOXICILLIN 500 MG CAPS 232345 AMOXICILLIN Inactive DOXYCYCLINE HYCLATE 100 MG CAP 1 cap by mouth twice daily DOXYCYCLINE HYCLATE 100 MG CAP 0085926 DOXYCYCLINE HYCLATE Inactive PREDNISONE 20 MG TAB 2 tabs daily for 3 days, 1 tab daily for 3 days, 1/2 tab daily for 2 days PREDNISONE 20 MG TAB 615846 PREDNISONE Inactive Immunizations Vaccine Administration Date Value Standard Description Seasonal influenza vaccine, injectable, preservative free, for > 3 years old ( Afluria, FluLaval, Fluzone, Fluvirin, Fluarix, Agriflu(>=18 yo)) Fluzone preservative free (>3 yrs.) [IGM028] Influenza, seasonal, injectable, preservative free Seasonal influenza vaccine, injectable, preservative free, for > 3 years old ( Afluria, FluLaval, Fluzone, Fluvirin, Fluarix, Agriflu(>=18 yo)) Fluzone preservative free (>3 yrs.) [[id number]] Influenza, seasonal, injectable, preservative free Hepatitis A [...] 295 10^3/MM^3 10*3/mm3 142-424 Lab Report: Chlamydia/GC [facility]/75443 - Lab chlamydia DNA probe NOT DETECTED NOT DETECTED Lab Report: Chlamydia/GC [facility]/57544 - Microbiology Neisseria gonorrhoeae DNA probe NOT DETECTED NOT DETECTED Lab Report: [facility] - Chemistry human chorionic gonadotropin, urine, qualitative (urine test) Negative Negative Encounters Code Encounter Date Provider Facility CPT-28470 Level 3 Est. Patient 21:38:45 CDT Jarde Stover Haider GOMEZ [facility] CPT-03070 Level 4 Est. Patient 18:13:37 EXPORT ADMINISTRATOR Anitha Fournier MD [facility]-81526 Level 3 Est. Patient 13:24:15 EXPORT ADMINISTRATOR Anitha Fournier MD [facility]-23194 Level 3 Est. Patient 08:50:05 CDT Jaida Shin MD [facility]-33313 Level 3 Est. Patient 09:28:01 CDT Mabel Ozuna APRN [facility]-53901 Level 3 Est. Patient 16:40:06 EXPORT ADMINISTRATOR Anitha Fournier MD [facility]-27930 Level 3 Est. Patient 12:36:13 CDT Anitha Fournier MD [facility]-47522 Level 3 Est. Patient 18:37:20 CDT Anitha Fournier MD [facility]-40052 Level 2 Est. Patient 13:42:23 CDT Anitha Fournier MD [facility]-83562 Level 3 Est. Patient 16:20:08 CDT Anitha Fournier MD [facility]-08116 Level 3 Est. Patient 10:48:04 CDT Jaida Shin MD [facility]-57506 Level 4 Est. Patient 19:54:37 CDT Anitha Fournier MD [facility]-66553 Level 3 Est. Patient 14:44:10 CDT Jaida Shin MD [facility]-18353 Level 3 Est. Patient 18:39:52 EXPORT ADMINISTRATOR Anitha Fournier MD [facility]-38979 Level 2 Est. Patient 17:11:04 EXPORT ADMINISTRATOR Jaida Shin MD [facility] CPT-72813 Level 3 Est. Patient 16:20:25 EXPORT ADMINISTRATOR Jaida Shin MD [facility] Procedures Code Procedure Name Date Entry Date Standard Description CPT-32693 Administration single or combination vaccine inc oral 11 :29:34 CDT CPT-85214 Influenza Preservative Free split virus >age 3 11:29:34 CDT CPT-42546 Chest 2V Frontal and Lat 09:13:38 CDT CPT-49841 Abd single AP View 12:11:59 CDT CPT-45485 Sono abd com inc all organs plus proximal aorta and distal IVC 2011 09:05:56 CDT CPT-01578 Abd compl w upright 10:39:58 CDT CPT-J0696 Rocephin 500 mg (Ceftriaxone) 13:49:25 CDT CPT-12808 Abx/Therapy Injection 13:49:25 CDT CPT-J0696 Rocephin 500 mg (Ceftriaxone) 13:25:42 CDT CPT-19075 Abd single AP View 13:13:10 CDT CPT-000 Give Appropriate Flu Vaccine 17:02:34 EXPORT ADMINISTRATOR CPT-000 Give Immunizations Due 17:02:34 EXPORT ADMINISTRATOR CPT-39936 Administration 2+ single or combination vaccines inc oral 17:35:00 EXPORT ADMINISTRATOR CPT-80997 Administration single or combination vaccine inc oral 17 :35:00 EXPORT ADMINISTRATOR CPT-94662 Influenza Preservative Free split virus >age 3 17:35:00 EXPORT ADMINISTRATOR CPT-59431 Hepatitis A ped/adol 2 dose schedule 17:35:00 EXPORT ADMINISTRATOR 07/06 CPT-96668 Meningococcal Conjugate Vacine (Menactra) 17:35:00 EXPORT ADMINISTRATOR CPT-L3908 Cockup Splint 16:20:25 EXPORT ADMINISTRATOR CPT-75470 Hand comp min 3V 16:20:25 EXPORT ADMINISTRATOR
--- OUTSIDE RECORDS SUMMARY | 2018-02-13 12:57 | XMS REPORT | Clinical Summary ---
Author Author Admin, ZULY Organization [facility] Address Unknown Phone Unavailable Allergies, Adverse Reactions, Alerts Allergy Name Reaction Description Start Date Severity Status Provider AMOXICILLIN Hives Severe Active Mabel Ozuna PIECE MARKER SMALL ARMS CLONIDINE Critical Active Jaida Shin MD Conditions [...] Routine gynecological examination V72.31 Active Mabel Ozuna DOMINICK Routine gynecological examination HAND PAIN, RIGHT ICD-729.5 [...] ICD-461.9 Inactive Anitha Fournier MD PhD ABDOMINAL PAIN, LEFT UPPER QUADRANT ICD-789.02 Inactive Jaida Shin MD FREQUENCY, URINARY ICD-788.41 Inactive Jaida Shin MD GALACTORRHEA ICD-611.6 Inactive Jaida Shin MD NECK PAIN ICD-723.1 Inactive Anitha Fournier MD PhD SOB ICD-786.09 Inactive Anitha Fournier MD PhD URI ICD-465.9 Inactive Anitha Fournier MD PhD UTI ICD-599.0 Inactive Anitha Fournier MD PhD SINUSITIS, ACUTE ICD-461.9 Inactive Fadi Blanco MD Medication List Medication Instructions Start Date Stop Date Generic Name NDC Status Provider Patient Instruction SPRINTEC 28 0.25-35 MG-MCG TABS 1 pill by mouth daily for control 01/05 NORGESTIMATE-ETH ESTRADIOL 64742405993 Active Mabel Ozuna APRN Active EQL IRON SUPPLEMENT THERAPY 325 MG ORAL TABS 1 tab po daily FERROUS SULFATE 91203349866 Active Mabel Ozuna APRN Active DAILY WOMENS HEALTH FORMULA ORAL TABS 1 tab po daily MULTIPLE VITAMINS-MINERALS 42205110966 Active Mabel Ozuna APRN Active BIOTIN 5000 MCG ORAL CAPS 3 caps po daily BIOTIN 51091704882 Active Mabel Ozuna APRN Active HYDROXYZINE HCL 25 MG TABS 1 Q BID PRN HYDROXYZINE HCL 81741527593 No Longer Active Mabel Ozuna APRN Active FANAPT 2 MG TABS take 2 tabs at bedtime ILOPERIDONE 65816749377 No Longer Active Mabel Ozuna APRN Active PRISTIQ 50 MG [id number] Take 1 tab in the evening for aniety and depression DESVENLAFAXINE SUCCINATE 85542324979 No Longer Active Mabel Ozuna APRN Active TRI-SPRINTEC 0.18/0.215/0.25 MG-35 MCG TABS 1 tablet po daily NORGESTIM-ETH ESTRAD TRIPHASIC 88308352662 No Longer Active Mabel Ozuna APRN Active PREDNISONE 20 MG TAB 2 tabs daily for 3 days, 1 tab daily for 3 days, 1/2 tab daily for 2 days PREDNISONE 09440256007 No Longer Active Jared Maloney DO Active VENTOLIN HFA 108 (90 BASE) MCG/ACT AERS 2 puffs four times a day PRN cough/ SOA ALBUTEROL SULFATE 90041772817 No Longer Active Jared Maloney DO Active TESSALON PERLES 100 MG CAP 1 tablet by mouth 3 times daily PRN cough BENZONATATE 32090690429 No Longer Active Jared Maloney DO Active REMERON 15 MG TABS 1 tablet daily MIRTAZAPINE 75139322573 No Longer Active Jared Maloney DO Active DOXYCYCLINE HYCLATE 100 MG CAP 1 cap by mouth twice daily DOXYCYCLINE HYCLATE 75305075766 No Longer Active Anitha Fournier MD PhD Active [facility] IBUPROFEN 200 MG CAPS 1 tid, PRN IBUPROFEN 60055360512 Active Anitha Fournier MD PhD Active TRAZODONE HCL 100 MG TABS 1 tablet at bedtime TRAZODONE HCL 35189791216 No Longer Active Jaida Shin MD Active LATUDA 40 MG TABS 1 tablet daily LURASIDONE HCL 23185856124 No Longer Active Jaida Shin MD Active ABILIFY 15 MG TABS 1 daily ARIPIPRAZOLE 19153872923 No Longer Active Fadi Blanco MD Active AMOXICILLIN 500 MG CAPS 2 po BID x 10 days AMOXICILLIN 73896806175 No Longer Active Anitha Fournier MD PhD Active SINGULAIR 10 MG TABS 1 po qd PRN runny nose/congestion MONTELUKAST SODIUM 39480282678 No Longer Active Anitha Fournier MD PhD Active AMOXICILLIN 500 MG CAPS 2 po BID x 10 days AMOXICILLIN 75024445641 No Longer Active Anitha Fournier MD PhD Active LEXAPRO 20 MG TABS Take one by mouth daily ESCITALOPRAM OXALATE 05174894593 No Longer Active Anitha Fournier MD PhD Active LAMOTRIGINE 100 MG TABS Take one (1) tablet by mouth twice a day LAMOTRIGINE 64926332613 No Longer Active Anitha Fournier MD PhD Active MELATONIN 5 MG TABS Take 1 tablet by mouth daily MELATONIN 71835530090 No Longer Active Anitha Fournier MD PhD Active MULTIVITAMINS TABS Take 1 tablet by mouth daily MULTIPLE VITAMIN 21709848690 No Longer Active Anitha Fournier MD PhD Active NYSTATIN 454970 UNIT/GM CREA apply to rash TID PRN NYSTATIN 44692142569 No Longer Active Anitha Fournier MD PhD Active AZITHROMYCIN 250 MG TABS 2 po qd x 1 day, then 1 po qd x 4 days AZITHROMYCIN 92577724578 No Longer Active Anitha Fournier MD PhD Active TRAZODONE HCL 50 MG TABS 1/2 @ HS TRAZODONE HCL 61897857799 No Longer Active Jaida Shin MD Active CYPROHEPTADINE HCL 4 MG TABS 1 tablet po at hs CYPROHEPTADINE HCL 27839100847 No Longer Active Anitha Fournier MD PhD Active HYDROXYZINE HCL 50 MG TABS 1-2 tabs po at hs HYDROXYZINE HCL 82928000843 No Longer Active Anitha Fournier MD PhD Active CONCERTA 27 MG CR-TABS 1 tablet daily METHYLPHENIDATE HCL 08890366627 No Longer Active Anitha Fournier MD PhD Active ACETAMINOPHEN-CODEINE #3 300-30 MG TABS 1 pill q 6hrs prn pain ACETAMINOPHEN-CODEINE 72239416039 No Longer Active Jaida Shin MD Active CONCERTA 27 MG CR-TABS 1 tablet daily CONCERTA 27 MG CR-TABS METHYLPHENIDATE HCL Inactive HYDROXYZINE HCL 50 MG TABS 1-2 tabs po at hs HYDROXYZINE HCL 50 MG TABS 688091 HYDROXYZINE HCL Inactive CYPROHEPTADINE HCL 4 MG TABS 1 tablet po at hs CYPROHEPTADINE HCL 4 MG TABS 016169 CYPROHEPTADINE HCL Inactive TRAZODONE HCL 50 MG TABS 1/2 @ HS TRAZODONE HCL 50 MG TABS 964873 TRAZODONE HCL Inactive NYSTATIN 032844 UNIT/GM CREA apply to rash TID PRN NYSTATIN 909423 UNIT/GM CREA 682973 NYSTATIN Inactive MULTIVITAMINS TABS Take 1 tablet by mouth daily MULTIVITAMINS TABS MULTIPLE VITAMIN Inactive MELATONIN 5 MG TABS Take 1 tablet by mouth daily MELATONIN 5 MG TABS 568206 MELATONIN Inactive LAMOTRIGINE 100 MG TABS Take one (1) tablet by mouth twice a day LAMOTRIGINE 100 MG TABS 379817 LAMOTRIGINE Inactive LEXAPRO 20 MG TABS Take one by mouth daily LEXAPRO 20 MG TABS 615269 ESCITALOPRAM OXALATE Inactive ABILIFY 15 MG TABS 1 daily ABILIFY 15 MG TABS 440011 ARIPIPRAZOLE Inactive LATUDA 40 MG TABS 1 tablet daily LATUDA 40 MG TABS LURASIDONE HCL Inactive TRAZODONE HCL 100 MG TABS 1 tablet at bedtime TRAZODONE HCL 100 MG TABS 349660 TRAZODONE HCL Inactive REMERON 15 MG TABS 1 tablet daily REMERON 15 MG TABS 788820 MIRTAZAPINE Inactive TESSALON PERLES 100 MG CAP 1 tablet by mouth 3 times daily PRN cough TESSALON PERLES 100 MG CAP 914220 BENZONATATE Inactive VENTOLIN HFA 108 (90 BASE) MCG/ACT AERS 2 puffs four times a day PRN cough/ SOA VENTOLIN HFA 108 (90 BASE) MCG/ACT AERS ALBUTEROL SULFATE Inactive TRI-SPRINTEC 0.18/0.215/0.25 MG-35 MCG TABS 1 tablet po daily TRI-SPRINTEC 0.18/0.215/0.25 MG-35 MCG TABS 293682 NORGESTIM-ETH ESTRAD TRIPHASIC Inactive PRISTIQ 50 MG [id number] Take 1 tab in the evening for aniety and depression PRISTIQ 50 MG [id number] DESVENLAFAXINE SUCCINATE Inactive FANAPT 2 MG TABS take 2 tabs at bedtime FANAPT 2 MG TABS ILOPERIDONE Inactive HYDROXYZINE HCL 25 MG TABS 1 Q BID PRN HYDROXYZINE HCL 25 MG TABS 579155 HYDROXYZINE HCL Inactive ACETAMINOPHEN-CODEINE #3 300-30 MG TABS 1 pill q 6hrs prn pain ACETAMINOPHEN-CODEINE #3 300-30 MG TABS 513430 ACETAMINOPHEN- CODEINE Inactive AZITHROMYCIN 250 MG TABS 2 po qd x 1 day, then 1 po qd x 4 days AZITHROMYCIN 250 MG TABS 5855508 AZITHROMYCIN Inactive AMOXICILLIN 500 MG CAPS 2 po BID x 10 days AMOXICILLIN 500 MG CAPS 925377 AMOXICILLIN Inactive SINGULAIR 10 MG TABS 1 po qd PRN runny nose/congestion SINGULAIR 10 MG TABS 302435 MONTELUKAST SODIUM Inactive AMOXICILLIN 500 MG CAPS 2 po BID x 10 days AMOXICILLIN 500 MG CAPS 915372 AMOXICILLIN Inactive DOXYCYCLINE HYCLATE 100 MG CAP 1 cap by mouth twice daily DOXYCYCLINE HYCLATE 100 MG CAP 4977410 DOXYCYCLINE HYCLATE Inactive PREDNISONE 20 MG TAB 2 tabs daily for 3 days, 1 tab daily for 3 days, 1/2 tab daily for 2 days PREDNISONE 20 MG TAB 816673 PREDNISONE Inactive Advance Directives Directive Description Start Date PERMISSION TO SHARE Immunizations Vaccine Administration Date Value Standard Description Seasonal influenza vaccine, injectable, preservative free, for > 3 years old ( Afluria, FluLaval, Fluzone, Fluvirin, Fluarix, Agriflu(>=18 yo)) Fluzone preservative free (>3 yrs.) [[id number]] Influenza, seasonal, injectable, preservative free Seasonal influenza vaccine, injectable, preservative free, for > 3 years old ( Afluria, FluLaval, Fluzone, Fluvirin, Fluarix, Agriflu(>=18 yo)) Fluzone preservative free (>3 yrs.) [[id number]] Influenza, seasonal, injectable, preservative free Hepatitis A [...] 295 10^3/MM^3 10*3/mm3 142-424 Lab Report: Chlamydia/GC [facility]/03475 - Lab chlamydia DNA probe NOT DETECTED NOT DETECTED Lab Report: Chlamydia/GC [facility]/21803 - Microbiology Neisseria gonorrhoeae DNA probe NOT DETECTED NOT DETECTED Lab Report: [facility] - Chemistry human chorionic gonadotropin, urine, qualitative (urine test) Negative Negative human chorionic gonadotropin, urine, qualitative (urine test) Negative Negative Encounters Code Encounter Date Provider Facility CPT-53927 Level 3 Est. Patient 21:38:45 CDT Jared Maloney DO [facility] CPT-42630 Level 4 Est. Patient 18:13:37 JAVASCRIPT APPLICATION DEVELOPER Anitha Fournier MD [facility] CPT-47252 Level 3 Est. Patient 13:24:15 JAVASCRIPT APPLICATION DEVELOPER Anitha Fournier MD PhD [facility]-61180 Level 3 Est. Patient 08:50:05 CDT Jaida Shin MD [facility]-20000 Level 3 Est. Patient 09:28:01 CDT Mabel Ozuna APRN [facility]-33431 Level 3 Est. Patient 16:40:06 JAVASCRIPT APPLICATION DEVELOPER Anitha Fournier MD [facility]-07468 Level 3 Est. Patient 12:36:13 CDT Anitha Fournier MD [facility]-69968 Level 3 Est. Patient 18:37:20 CDT Anitha Fournier MD PhD [facility]-01152 Level 2 Est. Patient 13:42:23 CDT Anitha Fournier MD [facility]14576 Level 3 Est. Patient 16:20:08 CDT Anitha Fournier MD [facility] CPT-61533 Level 3 Est. Patient 10:48:04 CDT Jaida Shin MD [facility] CPT-36370 Level 4 Est. Patient 19:54:37 CDT Anitha Fournier MD [facility] CPT-41227 Level 3 Est. Patient 14:44:10 CDT Jaida Shin MD [facility] CPT-13250 Level 3 Est. Patient 18:39:52 JAVASCRIPT APPLICATION DEVELOPER Anitha Fournier MD [facility] CPT-33791 Level 2 Est. Patient 17:11:04 JAVASCRIPT APPLICATION DEVELOPER Jaida Shin MD [facility] CPT-35009 Level 3 Est. Patient 16:20:25 JAVASCRIPT APPLICATION DEVELOPER Jaida Shin MD [facility] Procedures Code Procedure Name Date Entry Date Standard Description CPT-95467 Administration single or combination vaccine inc oral 11 :29:34 CDT CPT-56803 Influenza Preservative Free split virus >age 3 11:29:34 CDT CPT-76395 Chest 2V Frontal and Lat 09:13:38 CDT CPT-20557 Abd single AP View 12:11:59 CDT CPT-71456 Sono abd com inc all organs plus proximal aorta and distal IVC 2011 09:05:56 CDT CPT-78917 Abd compl w upright 10:39:58 CDT CPT-J0696 Rocephin 500 mg (Ceftriaxone) 13:49:25 CDT CPT-64224 Abx/Therapy Injection 13:49:25 CDT CPT-J0696 Rocephin 500 mg (Ceftriaxone) 13:25:42 CDT CPT-46383 Abd single AP View 13:13:10 CDT CPT-000 Give Appropriate Flu Vaccine 17:02:34 JAVASCRIPT APPLICATION DEVELOPER CPT-000 Give Immunizations Due 17:02:34 JAVASCRIPT APPLICATION DEVELOPER CPT-70601 Administration 2+ single or combination vaccines inc oral 17:35:00 JAVASCRIPT APPLICATION DEVELOPER CPT-86531 Administration single or combination vaccine inc oral 17 :35:00 JAVASCRIPT APPLICATION DEVELOPER CPT-47618 Influenza Preservative Free split virus >age 3 17:35:00 JAVASCRIPT APPLICATION DEVELOPER CPT-93998 Hepatitis A ped/adol 2 dose schedule 17:35:00 JAVASCRIPT APPLICATION DEVELOPER 07/06 CPT-82982 Meningococcal Conjugate Vacine (Menactra) 17:35:00 JAVASCRIPT APPLICATION DEVELOPER CPT-L3908 Cockup Splint 16:20:25 JAVASCRIPT APPLICATION DEVELOPER CPT-76731 Hand comp min 3V 16:20:25 JAVASCRIPT APPLICATION DEVELOPER
--- OUTSIDE RECORDS SUMMARY | 2018-02-13 12:57 | XMS REPORT | Clinical Summary ---
Author Author Admin, ZULY Organization [facility] Address Unknown Phone Unavailable Allergies, Adverse Reactions, Alerts Allergy Name Reaction Description Start Date Severity Status Provider AMOXICILLIN Hives Severe Active Mabel Ozuna [employer] CLONIDINE Critical Active Jaida Shin MD Conditions [...] PELVIC INFLAMMATORY DISEASE, ACUTE 614.9 Resolved Anitha Founrier MD PhD Unspecified inflammatory disease of female [...] PAIN ICD-724.5 Inactive Anitha Fournier MD PhD CHLAMYDIAL INFECTION ICD-099.41 Inactive Anitha Fournier MD PhD PELVIC INFLAMMATORY DISEASE, ACUTE ICD-614.9 Inactive Anitha Fournier MD PhD NAUSEA AND VOMITING ICD-787.01 Inactive Anitha Fournier MD PhD SINUSITIS, ACUTE ICD-461.9 Inactive Anitha Fournier MD PhD ABDOMINAL PAIN ICD-789.00 Inactive Anitha Fournier MD PhD ABDOMINAL PAIN, LEFT UPPER QUADRANT ICD-789.02 Inactive Jaida Shin MD FREQUENCY, URINARY ICD-788.41 Inactive Jaida Shin MD GALACTORRHEA ICD-611.6 Inactive Jaida Shin MD SINUSITIS, ACUTE ICD-461.9 Inactive Fadi Blanco MD SEXUAL ACTIVITY, HIGH RISK ICD-V69.2 Inactive Anitha Fournier MD PhD SOB ICD-786.09 Inactive Anitha Fournier MD PhD URI ICD-465.9 Inactive Anitha Fournier MD PhD UTI ICD-599.0 Inactive Anitha Fournier MD PhD NECK PAIN ICD-723.1 Inactive Anitha Fournier MD PhD Medication List Medication Instructions Start Date Stop Date Generic Name NDC Status Provider Patient Instruction EQL IRON SUPPLEMENT THERAPY 325 MG ORAL TABS 1 tab po daily FERROUS SULFATE 68023708605 Active Mabel Ozuna APRN Active DAILY WOMENS HEALTH FORMULA ORAL TABS 1 tab po daily MULTIPLE VITAMINS-MINERALS 22364821877 Active Mabel Ouzna APRN Active BIOTIN 5000 MCG ORAL CAPS 3 caps po daily BIOTIN 85738675111 Active Mabel Ozuna APRN Active HYDROXYZINE HCL 25 MG TABS 1 Q BID PRN HYDROXYZINE HCL 14883383221 No Longer Active Mabel Ozuna APRN Active FANAPT 2 MG TABS take 2 tabs at bedtime ILOPERIDONE 75009393526 No Longer Active Kyraina Laith TAN Active PRISTIQ 50 MG [id number] Take 1 tab in the evening for aniety and depression DESVENLAFAXINE SUCCINATE 15736843062 No Longer Active Mabel Ozuna APRN Active TRI-SPRINTEC 0.18/0.215/0.25 MG-35 MCG TABS 1 tablet po daily NORGESTIM-ETH ESTRAD TRIPHASIC 04631345546 No Longer Active Mabel Ozuna APRN Active PREDNISONE 20 MG TAB 2 tabs daily for 3 days, 1 tab daily for 3 days, 1/2 tab daily for 2 days PREDNISONE 83994272141 No Longer Active Jared Maloney DO Active VENTOLIN HFA 108 (90 BASE) MCG/ACT AERS 2 puffs four times a day PRN cough/ SOA ALBUTEROL SULFATE 51322133186 No Longer Active Jared Maloney DO Active TESSALON PERLES 100 MG CAP 1 tablet by mouth 3 times daily PRN cough BENZONATATE 26504991195 No Longer Active Jared Maloney DO Active REMERON 15 MG TABS 1 tablet daily MIRTAZAPINE 98937598599 No Longer Active Jared Maloney DO Active DOXYCYCLINE HYCLATE 100 MG CAP 1 cap by mouth twice daily DOXYCYCLINE HYCLATE 10996591343 No Longer Active Anitha Fournier MD PhD Active CVS IBUPROFEN 200 MG CAPS 1 tid, PRN IBUPROFEN 63575632897 Active Anitha Fournier MD PhD Active TRAZODONE HCL 100 MG TABS 1 tablet at bedtime TRAZODONE HCL 01457342728 No Longer Active Jaida Shin MD Active LATUDA 40 MG TABS 1 tablet daily LURASIDONE HCL 51337104994 No Longer Active Jaida Shin MD Active ABILIFY 15 MG TABS 1 daily ARIPIPRAZOLE 53996084176 No Longer Active Fadi Blanco MD Active AMOXICILLIN 500 MG CAPS 2 po BID x 10 days AMOXICILLIN 80137073379 No Longer Active Anitha Fournier MD PhD Active SINGULAIR 10 MG TABS 1 po qd PRN runny nose/congestion MONTELUKAST SODIUM 57457334548 No Longer Active Anitha Fournier MD PhD Active AMOXICILLIN 500 MG CAPS 2 po BID x 10 days AMOXICILLIN 79295148827 No Longer Active Anitha Fournier MD PhD Active LEXAPRO 20 MG TABS Take one by mouth daily ESCITALOPRAM OXALATE 93371784243 No Longer Active Anitha Fournier MD PhD Active LAMOTRIGINE 100 MG TABS Take one (1) tablet by mouth twice a day LAMOTRIGINE 80341676028 No Longer Active Anitha Fournier MD PhD Active MELATONIN 5 MG TABS Take 1 tablet by mouth daily MELATONIN 21900082466 No Longer Active Anitha Fournier MD PhD Active MULTIVITAMINS TABS Take 1 tablet by mouth daily MULTIPLE VITAMIN 02047311961 No Longer Active Anitha Fournier MD PhD Active NYSTATIN 494637 UNIT/GM CREA apply to rash TID PRN NYSTATIN 47053671903 No Longer Active Anitha Fournier MD PhD Active AZITHROMYCIN 250 MG TABS 2 po qd x 1 day, then 1 po qd x 4 days AZITHROMYCIN 20069709440 No Longer Active Anitha Fournier MD PhD Active TRAZODONE HCL 50 MG TABS 1/2 @ HS TRAZODONE HCL 49555078033 No Longer Active Jaida Shin MD Active CYPROHEPTADINE HCL 4 MG TABS 1 tablet po at hs CYPROHEPTADINE HCL 58702100843 No Longer Active Anitha Fournier MD PhD Active HYDROXYZINE HCL 50 MG TABS 1-2 tabs po at hs HYDROXYZINE HCL 79831627429 No Longer Active Anitha Fournier MD PhD Active CONCERTA 27 MG CR-TABS 1 tablet daily METHYLPHENIDATE HCL 33345308455 No Longer Active Anitha Fournier MD PhD Active ACETAMINOPHEN-CODEINE #3 300-30 MG TABS 1 pill q 6hrs prn pain ACETAMINOPHEN-CODEINE 60060982293 No Longer Active Jaida Shin MD Active CONCERTA 27 MG CR-TABS 1 tablet daily CONCERTA 27 MG CR-TABS METHYLPHENIDATE HCL Inactive HYDROXYZINE HCL 50 MG TABS 1-2 tabs po at hs HYDROXYZINE HCL 50 MG TABS 963810 HYDROXYZINE HCL Inactive CYPROHEPTADINE HCL 4 MG TABS 1 tablet po at hs CYPROHEPTADINE HCL 4 MG TABS 563601 CYPROHEPTADINE HCL Inactive TRAZODONE HCL 50 MG TABS 1/2 @ HS TRAZODONE HCL 50 MG TABS 708871 TRAZODONE HCL Inactive NYSTATIN 661769 UNIT/GM CREA apply to rash TID PRN NYSTATIN 717625 UNIT/GM CREA 298999 NYSTATIN Inactive MULTIVITAMINS TABS Take 1 tablet by mouth daily MULTIVITAMINS TABS MULTIPLE VITAMIN Inactive MELATONIN 5 MG TABS Take 1 tablet by mouth daily MELATONIN 5 MG TABS 886383 MELATONIN Inactive LAMOTRIGINE 100 MG TABS Take one (1) tablet by mouth twice a day LAMOTRIGINE 100 MG TABS 219321 LAMOTRIGINE Inactive LEXAPRO 20 MG TABS Take one by mouth daily LEXAPRO 20 MG TABS 647944 ESCITALOPRAM OXALATE Inactive ABILIFY 15 MG TABS 1 daily ABILIFY 15 MG TABS 157455 ARIPIPRAZOLE Inactive LATUDA 40 MG TABS 1 tablet daily LATUDA 40 MG TABS LURASIDONE HCL Inactive TRAZODONE HCL 100 MG TABS 1 tablet at bedtime TRAZODONE HCL 100 MG TABS 292095 TRAZODONE HCL Inactive REMERON 15 MG TABS 1 tablet daily REMERON 15 MG TABS 541578 MIRTAZAPINE Inactive TESSALON PERLES 100 MG CAP 1 tablet by mouth 3 times daily PRN cough TESSALON PERLES 100 MG CAP 634146 BENZONATATE Inactive VENTOLIN HFA 108 (90 BASE) MCG/ACT AERS 2 puffs four times a day PRN cough/ SOA VENTOLIN HFA 108 (90 BASE) MCG/ACT AERS ALBUTEROL SULFATE Inactive TRI-SPRINTEC 0.18/0.215/0.25 MG-35 MCG TABS 1 tablet po daily TRI-SPRINTEC 0.18/0.215/0.25 MG-35 MCG TABS 357821 NORGESTIM-ETH ESTRAD TRIPHASIC Inactive PRISTIQ 50 MG [id number] Take 1 tab in the evening for aniety and depression PRISTIQ 50 MG [id number] DESVENLAFAXINE SUCCINATE Inactive FANAPT 2 MG TABS take 2 tabs at bedtime FANAPT 2 MG TABS ILOPERIDONE Inactive HYDROXYZINE HCL 25 MG TABS 1 Q BID PRN HYDROXYZINE HCL 25 MG TABS 402217 HYDROXYZINE HCL Inactive ACETAMINOPHEN-CODEINE #3 300-30 MG TABS 1 pill q 6hrs prn pain ACETAMINOPHEN-CODEINE #3 300-30 MG TABS 520680 ACETAMINOPHEN- CODEINE Inactive AZITHROMYCIN 250 MG TABS 2 po qd x 1 day, then 1 po qd x 4 days AZITHROMYCIN 250 MG TABS 3173142 AZITHROMYCIN Inactive AMOXICILLIN 500 MG CAPS 2 po BID x 10 days AMOXICILLIN 500 MG CAPS 605793 AMOXICILLIN Inactive SINGULAIR 10 MG TABS 1 po qd PRN runny nose/congestion SINGULAIR 10 MG TABS 447020 MONTELUKAST SODIUM Inactive AMOXICILLIN 500 MG CAPS 2 po BID x 10 days AMOXICILLIN 500 MG CAPS 654073 AMOXICILLIN Inactive DOXYCYCLINE HYCLATE 100 MG CAP 1 cap by mouth twice daily DOXYCYCLINE HYCLATE 100 MG CAP 5568460 DOXYCYCLINE HYCLATE Inactive PREDNISONE 20 MG TAB 2 tabs daily for 3 days, 1 tab daily for 3 days, 1/2 tab daily for 2 days PREDNISONE 20 MG TAB 759999 PREDNISONE Inactive Immunizations Vaccine Administration Date Value Standard Description Seasonal influenza vaccine, injectable, preservative free, for > 3 years old ( Afluria, FluLaval, Fluzone, Fluvirin, Fluarix, Agriflu(>=18 yo)) Fluzone preservative free (>3 yrs.) [[id number]] Influenza, seasonal, injectable, preservative free Seasonal influenza vaccine, injectable, preservative free, for > 3 years old ( Afluria, FluLaval, Fluzone, Fluvirin, Fluarix, Agriflu(>=18 yo)) Fluzone preservative free (>3 yrs.) [[id number]] Influenza, seasonal, injectable, preservative free Hepatitis A [...] 295 10^3/MM^3 10*3/mm3 142-424 Lab Report: Chlamydia/GC [facility]/46215 - Lab chlamydia DNA probe NOT DETECTED NOT DETECTED Lab Report: Chlamydia/GC [facility]/32325 - Microbiology Neisseria gonorrhoeae DNA probe NOT DETECTED NOT DETECTED [facility] human chorionic gonadotropin, urine, qualitative (urine test) Negative Negative Encounters Code Encounter Date Provider Facility [facility]-[id number] Level 3 Est. Patient 21:38:45 CDT aJred Maloney DO [facility]-20035 Level 4 Est. Patient 18:13:37 ADVICE NURSE Anitha Fournier MD Formerly named [facility]24613 Level 3 Est. Patient 13:24:15 ADVICE NURSE Anitha Fournier MD [facility]-05784 Level 3 Est. Patient 08:50:05 CDT Jaida Shin MD [facility]-12586 Level 3 Est. Patient 09:28:01 CD[facility] Patient 16:40:06 ADVICE NURSE Anitha Fournier MD [facility]-53351 Level 3 Est. Patient 12:36:13 CDT Anitha Fournier MD [facility]-97643 Level 3 Est. Patient 18:37:20 CDT Anitha Fournier MD [facility]-53360 Level 2 Est. Patient 13:42:23 CDT Anitha Fournier MD [facility]-30702 Level 3 Est. Patient 16:20:08 CDT Anitha Fournier MD [facility] named [facility]85970 Level 3 Est. Patient 10:48:04 CDT Jaida Shin MD [facility]-84653 Level 4 Est. Patient 19:54:37 CDT Anitha Fournier MD PhD [facility] CPT-07051 Level 3 Est. Patient 14:44:10 CDT Jaida Shin MD [facility] CPT-10317 Level 3 Est. Patient 18:39:52 ADVICE NURSE Anitha Fournier MD PhD [facility] CPT-50378 Level 2 Est. Patient 17:11:04 ADVICE NURSE Jaida Shin MD [facility] CPT-65113 Level 3 Est. Patient 16:20:25 ADVICE NURSE Jaida Shin MD [facility] Procedures Code Procedure Name Date Entry Date Standard Description CPT-09318 Administration single or combination vaccine inc oral 11 :29:34 CDT CPT-85828 Influenza Preservative Free split virus >age 3 11:29:34 CDT CPT-31985 Chest 2V Frontal and Lat 09:13:38 CDT CPT-66223 Abd single AP View 12:11:59 CDT CPT-42952 Sono abd com inc all organs plus proximal aorta and distal IVC 2011 09:05:56 CDT CPT-67638 Abd compl w upright 10:39:58 CDT CPT-J0696 Rocephin 500 mg (Ceftriaxone) 13:49:25 CDT CPT-52778 Abx/Therapy Injection 13:49:25 CDT CPT-J0696 Rocephin 500 mg (Ceftriaxone) 13:25:42 CDT CPT-67996 Abd single AP View 13:13:10 CDT CPT-000 Give Appropriate Flu Vaccine 17:02:34 ADVICE NURSE CPT-000 Give Immunizations Due 17:02:34 ADVICE NURSE CPT-10851 Administration 2+ single or combination vaccines inc oral 17:35:00 ADVICE NURSE CPT-82741 Administration single or combination vaccine inc oral 17 :35:00 ADVICE NURSE CPT-20732 Influenza Preservative Free split virus >age 3 17:35:00 ADVICE NURSE CPT-89618 Hepatitis A ped/adol 2 dose schedule 17:35:00 ADVICE NURSE 07/06 CPT-24634 Meningococcal Conjugate Vacine (Menactra) 17:35:00 ADVICE NURSE CPT-L3908 Cockup Splint 16:20:25 ADVICE NURSE CPT-11337 Hand comp min 3V 16:20:25 ADVICE NURSE
--- OUTSIDE RECORDS SUMMARY | 2018-02-13 12:58 | XMS REPORT | Clinical Summary ---
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 CLONIDINE Critical Active Jaida Shin MD Conditions [...] Routine gynecological examination V72.31 Active Mabel Ozuna APRN Routine gynecological examination HEALTH EXAMINATION OF DEFINED SUBPOPULATION ICD-V70.5 Inactive Anitha Fournier MD PhD BRONCHITIS-ACUTE ICD-466.0 Inactive Jaida Shin MD FATIGUE ICD-780.79 Inactive Anitha Fournier MD PhD ABDOMINAL PAIN ICD-789.00 Inactive Jaida Shin MD HAND PAIN, RIGHT ICD-729.5 Inactive Anitha Fournier MD PhD FATIGUE ICD-780.79 Inactive Anitha Fournier MD PhD BACK PAIN ICD-724.5 Inactive Anitha Fournier MD PhD PELVIC INFLAMMATORY DISEASE, ACUTE ICD-614.9 Inactive Anitha Fournier MD PhD SEXUAL ACTIVITY, HIGH RISK ICD-V69.2 Inactive Anitha Fournier MD PhD CHLAMYDIAL INFECTION ICD-099.41 Inactive Anitha Fournier MD PhD ABDOMINAL PAIN ICD-789.00 Inactive Anitha Fournier MD PhD SINUSITIS, ACUTE ICD-461.9 Inactive Fadi Blanco MD ABDOMINAL PAIN, LEFT UPPER QUADRANT ICD-789.02 Inactive Jaida Shin MD FREQUENCY, URINARY ICD-788.41 Inactive Jaida Shin MD GALACTORRHEA ICD-611.6 Inactive Jaida Shin MD NAUSEA AND VOMITING ICD-787.01 Inactive Anitha Fournier MD PhD NECK PAIN ICD-723.1 Inactive Anitha Fournier MD PhD SOB ICD-786.09 Inactive Anitha Fournier MD PhD URI ICD-465.9 Inactive Anitha Fournier MD PhD SINUSITIS, ACUTE ICD-461.9 Inactive Anitha Fournier MD PhD UTI ICD-599.0 Inactive Anitha Fournier MD PhD Medication List Medication Instructions Start Date Stop Date Generic Name NDC Status Provider Patient Instruction EQL IRON SUPPLEMENT THERAPY 325 MG ORAL TABS 1 tab po daily FERROUS SULFATE 96780465032 Active Mabel Ozuna APRN Active DAILY WOMENS HEALTH FORMULA ORAL TABS 1 tab po daily MULTIPLE VITAMINS-MINERALS 63652998356 Active Mabel Ozuna APRN Active BIOTIN 5000 MCG ORAL CAPS 3 caps po daily BIOTIN 10966003039 Active Mabel Ozuna APRN Active HYDROXYZINE HCL 25 MG TABS 1 Q BID PRN HYDROXYZINE HCL 47104575181 No Longer Active Mbael Ozuna APRN Active FANAPT 2 MG TABS take 2 tabs at bedtime ILOPERIDONE 64700294442 No Longer Active Mabel Ozuna APRN Active PRISTIQ 50 MG [id number] Take 1 tab in the evening for aniety and depression DESVENLAFAXINE SUCCINATE 03725263695 No Longer Active Mabel Ozuna APRN Active TRI-SPRINTEC 0.18/0.215/0.25 MG-35 MCG TABS 1 tablet po daily NORGESTIM-ETH ESTRAD TRIPHASIC 54923091274 No Longer Active Mabel Ozuna APRN Active PREDNISONE 20 MG TAB 2 tabs daily for 3 days, 1 tab daily for 3 days, 1/2 tab daily for 2 days PREDNISONE 20732212662 No Longer Active Jared Maloney DO Active VENTOLIN HFA 108 (90 BASE) MCG/ACT AERS 2 puffs four times a day PRN cough/ SOA ALBUTEROL SULFATE 78777311783 No Longer Active Jared Maloney DO Active TESSALON PERLES 100 MG CAP 1 tablet by mouth 3 times daily PRN cough BENZONATATE 60574151955 No Longer Active Jared Maloney DO Active REMERON 15 MG TABS 1 tablet daily MIRTAZAPINE 23023590777 No Longer Active Jared Maloney DO Active DOXYCYCLINE HYCLATE 100 MG CAP 1 cap by mouth twice daily DOXYCYCLINE HYCLATE 69368478230 No Longer Active Anitha Fournier MD PhD Active [facility]S IBUPROFEN 200 MG CAPS 1 tid, PRN IBUPROFEN 53585754212 Active Anitha Fournier MD PhD Active TRAZODONE HCL 100 MG TABS 1 tablet at bedtime TRAZODONE HCL 40866256828 No Longer Active Jaida Shin MD Active LATUDA 40 MG TABS 1 tablet daily LURASIDONE HCL 16032036963 No Longer Active Jaida Shin MD Active ABILIFY 15 MG TABS 1 daily ARIPIPRAZOLE 35400470689 No Longer Active Fadi Blanco MD Active AMOXICILLIN 500 MG CAPS 2 po BID x 10 days AMOXICILLIN 50404089520 No Longer Active Anitha Fournier MD PhD Active SINGULAIR 10 MG TABS 1 po qd PRN runny nose/congestion MONTELUKAST SODIUM 11255250213 No Longer Active Anitha Fournier MD PhD Active AMOXICILLIN 500 MG CAPS 2 po BID x 10 days AMOXICILLIN 01428778495 No Longer Active Anitha Fournier MD PhD Active LEXAPRO 20 MG TABS Take one by mouth daily ESCITALOPRAM OXALATE 53875022715 No Longer Active Anitha Fournier MD PhD Active LAMOTRIGINE 100 MG TABS Take one (1) tablet by mouth twice a day LAMOTRIGINE 63893833263 No Longer Active Anitha Fournier MD PhD Active MELATONIN 5 MG TABS Take 1 tablet by mouth daily MELATONIN 72528829501 No Longer Active Anitha Fournier MD PhD Active MULTIVITAMINS TABS Take 1 tablet by mouth daily MULTIPLE VITAMIN 20553178673 No Longer Active Anitha Fournier MD PhD Active NYSTATIN 376327 UNIT/GM CREA apply to rash TID PRN NYSTATIN 11830643877 No Longer Active Anitha Fournier MD PhD Active AZITHROMYCIN 250 MG TABS 2 po qd x 1 day, then 1 po qd x 4 days AZITHROMYCIN 46714451824 No Longer Active Anitha Fournier MD PhD Active TRAZODONE HCL 50 MG TABS 1/2 @ HS TRAZODONE HCL 21912453813 No Longer Active Jaida Shin MD Active CYPROHEPTADINE HCL 4 MG TABS 1 tablet po at hs CYPROHEPTADINE HCL 91165625364 No Longer Active Anitha Fournier MD PhD Active HYDROXYZINE HCL 50 MG TABS 1-2 tabs po at hs HYDROXYZINE HCL 00974568358 No Longer Active Anitha Fournier MD PhD Active CONCERTA 27 MG CR-TABS 1 tablet daily METHYLPHENIDATE HCL 92830293133 No Longer Active Anitha Fournier MD PhD Active ACETAMINOPHEN-CODEINE #3 300-30 MG TABS 1 pill q 6hrs prn pain ACETAMINOPHEN-CODEINE 10389345644 No Longer Active Jaida Shin MD Active CONCERTA 27 MG CR-TABS 1 tablet daily CONCERTA 27 MG CR-TABS METHYLPHENIDATE HCL Inactive HYDROXYZINE HCL 50 MG TABS 1-2 tabs po at hs HYDROXYZINE HCL 50 MG TABS 425683 HYDROXYZINE HCL Inactive CYPROHEPTADINE HCL 4 MG TABS 1 tablet po at hs CYPROHEPTADINE HCL 4 MG TABS 275620 CYPROHEPTADINE HCL Inactive TRAZODONE HCL 50 MG TABS 1/2 @ HS TRAZODONE HCL 50 MG TABS 996607 TRAZODONE HCL Inactive NYSTATIN 765762 UNIT/GM CREA apply to rash TID PRN NYSTATIN 021488 UNIT/GM CREA 374085 NYSTATIN Inactive MULTIVITAMINS TABS Take 1 tablet by mouth daily MULTIVITAMINS TABS MULTIPLE VITAMIN Inactive MELATONIN 5 MG TABS Take 1 tablet by mouth daily MELATONIN 5 MG TABS 175299 MELATONIN Inactive LAMOTRIGINE 100 MG TABS Take one (1) tablet by mouth twice a day LAMOTRIGINE 100 MG TABS 038835 LAMOTRIGINE Inactive LEXAPRO 20 MG TABS Take one by mouth daily LEXAPRO 20 MG TABS 917999 ESCITALOPRAM OXALATE Inactive ABILIFY 15 MG TABS 1 daily ABILIFY 15 MG TABS 464940 ARIPIPRAZOLE Inactive LATUDA 40 MG TABS 1 tablet daily LATUDA 40 MG TABS LURASIDONE HCL Inactive TRAZODONE HCL 100 MG TABS 1 tablet at bedtime TRAZODONE HCL 100 MG TABS 238995 TRAZODONE HCL Inactive REMERON 15 MG TABS 1 tablet daily REMERON 15 MG TABS 967908 MIRTAZAPINE Inactive TESSALON PERLES 100 MG CAP 1 tablet by mouth 3 times daily PRN cough TESSALON PERLES 100 MG CAP 533882 BENZONATATE Inactive VENTOLIN HFA 108 (90 BASE) MCG/ACT AERS 2 puffs four times a day PRN cough/ SOA VENTOLIN HFA 108 (90 BASE) MCG/ACT AERS ALBUTEROL SULFATE Inactive TRI-SPRINTEC 0.18/0.215/0.25 MG-35 MCG TABS 1 tablet po daily TRI-SPRINTEC 0.18/0.215/0.25 MG-35 MCG TABS 954807 NORGESTIM-ETH ESTRAD TRIPHASIC Inactive PRISTIQ 50 MG [id number] Take 1 tab in the evening for aniety and depression PRISTIQ 50 MG [id number] DESVENLAFAXINE SUCCINATE Inactive FANAPT 2 MG TABS take 2 tabs at bedtime FANAPT 2 MG TABS ILOPERIDONE Inactive HYDROXYZINE HCL 25 MG TABS 1 Q BID PRN HYDROXYZINE HCL 25 MG TABS 043121 HYDROXYZINE HCL Inactive ACETAMINOPHEN-CODEINE #3 300-30 MG TABS 1 pill q 6hrs prn pain ACETAMINOPHEN-CODEINE #3 300-30 MG TABS 503196 ACETAMINOPHEN- CODEINE Inactive AZITHROMYCIN 250 MG TABS 2 po qd x 1 day, then 1 po qd x 4 days AZITHROMYCIN 250 MG TABS 8207803 AZITHROMYCIN Inactive AMOXICILLIN 500 MG CAPS 2 po BID x 10 days AMOXICILLIN 500 MG CAPS 088854 AMOXICILLIN Inactive SINGULAIR 10 MG TABS 1 po qd PRN runny nose/congestion SINGULAIR 10 MG TABS 609980 MONTELUKAST SODIUM Inactive AMOXICILLIN 500 MG CAPS 2 po BID x 10 days AMOXICILLIN 500 MG CAPS 255532 AMOXICILLIN Inactive DOXYCYCLINE HYCLATE 100 MG CAP 1 cap by mouth twice daily DOXYCYCLINE HYCLATE 100 MG CAP 1703205 DOXYCYCLINE HYCLATE Inactive PREDNISONE 20 MG TAB 2 tabs daily for 3 days, 1 tab daily for 3 days, 1/2 tab daily for 2 days PREDNISONE 20 MG TAB 141766 PREDNISONE Inactive Immunizations Vaccine Administration Date Value Standard Description Seasonal influenza vaccine, injectable, preservative free, for > 3 years old ( Afluria, FluLaval, Fluzone, Fluvirin, Fluarix, Agriflu(>=18 yo)) Fluzone preservative free (>3 yrs.) [[id number]] Influenza, seasonal, injectable, preservative free Seasonal influenza vaccine, injectable, preservative free, for > 3 years old ( Afluria, FluLaval, Fluzone, Fluvirin, Fluarix, Agriflu(>=18 yo)) Fluzone preservative free (>3 yrs.) [[id number]] Influenza, seasonal, injectable, preservative free Hepatitis A [...] 295 10^3/MM^3 10*3/mm3 142-424 Lab Report: Chlamydia/GC [facility]/63630 - Lab chlamydia DNA probe NOT DETECTED NOT DETECTED Lab Report: Chlamydia/GC [facility]/04214 - Microbiology Neisseria gonorrhoeae DNA probe NOT DETECTED NOT DETECTED [facility] Chemistry human chorionic gonadotropin, urine, qualitative (urine test) Negative Negative Encounters Code Encounter Date Provider Facility [facility]-94487 Level 3 Est. Patient 21:38:45 CDT Jared Maloney DO [facility] [facility] [place] Level 4 Est. Patient 18:13:37 VETERINARY TOXICOLOGIST Anitha Fournier MD [facility]19261 Level 3 Est. Patient 13:24:15 VETERINARY TOXICOLOGIST Anitha Fournier MD [facility]-67841 Level 3 Est. Patient 08:50:05 CDT Jaida Shin MD [facility]-47830 Level 3 Est. Patient 09:28:01 CDT [facility] Level [facility] Est. Patient 16:40:06 VETERINARY TOXICOLOGIST Anitha Fournier MD [facility]-54285 Level 3 Est. Patient 12:36:13 CDT Anitha Fournier MD [facility]-58366 Level 3 Est. Patient 18:37:20 CDT Anitha Fournier MD [facility]-86780 Level 2 Est. Patient 13:42:23 CDT Anitha Fournier MD [facility]-65319 Level 3 Est. Patient 16:20:08 CDT Anitha Fournier MD [facility]59842 Level 3 Est. Patient 10:48:04 CDT Jaida Shin MD [facility] [place] [facility] [place]-[address]121 Level 4 Est. Patient 19:54:37 CDT Anitha Fournier MD PhD [facility] CPT-45317 Level 3 Est. Patient 14:44:10 CDT Jaida Shin MD [facility] CPT-52451 Level 3 Est. Patient 18:39:52 VETERINARY TOXICOLOGIST Anitha Fournier MD PhD [facility] CPT-33552 Level 2 Est. Patient 17:11:04 VETERINARY TOXICOLOGIST Jaida Shin MD [facility] CPT-83380 Level 3 Est. Patient 16:20:25 VETERINARY TOXICOLOGIST Jaida Shin MD [facility] Procedures Code Procedure Name Date Entry Date Standard Description CPT-97710 Administration single or combination vaccine inc oral 11 :29:34 CDT CPT-60583 Influenza Preservative Free split virus >age 3 11:29:34 CDT CPT-12904 Chest 2V Frontal and Lat 09:13:38 CDT CPT-18941 Abd single AP View 12:11:59 CDT CPT-22597 Sono abd com inc all organs plus proximal aorta and distal IVC 2011 09:05:56 CDT CPT-06780 Abd compl w upright 10:39:58 CDT CPT-J0696 Rocephin 500 mg (Ceftriaxone) 13:49:25 CDT CPT-13739 Abx/Therapy Injection 13:49:25 CDT CPT-J0696 Rocephin 500 mg (Ceftriaxone) 13:25:42 CDT CPT-10410 Abd single AP View 13:13:10 CDT CPT-000 Give Appropriate Flu Vaccine 17:02:34 VETERINARY TOXICOLOGIST CPT-000 Give Immunizations Due 17:02:34 VETERINARY TOXICOLOGIST CPT-81180 Administration 2+ single or combination vaccines inc oral 17:35:00 VETERINARY TOXICOLOGIST CPT-93706 Administration single or combination vaccine inc oral 17 :35:00 VETERINARY TOXICOLOGIST CPT-11621 Influenza Preservative Free split virus >age 3 17:35:00 VETERINARY TOXICOLOGIST CPT-28324 Hepatitis A ped/adol 2 dose schedule 17:35:00 VETERINARY TOXICOLOGIST 07/06 CPT-59387 Meningococcal Conjugate Vacine (Menactra) 17:35:00 VETERINARY TOXICOLOGIST CPT-L3908 Cockup Splint 16:20:25 VETERINARY TOXICOLOGIST CPT-36935 Hand comp min 3V 16:20:25 VETERINARY TOXICOLOGIST
--- OUTSIDE RECORDS SUMMARY | 2018-02-13 12:59 | XMS REPORT | Clinical Summary ---
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 CLONIDINE Critical Active Jaida Shin MD Conditions [...] Routine gynecological examination V72.31 Active Mabel Coolricardo [employer]EL [employer] BUSTER Routine gynecological examination HAND PAIN, RIGHT ICD-729.5 [...] TABS 1 tab po daily FERROUS SULFATE 64104137500 Active Mabel Ozuna APRN Active DAILY WOMENS HEALTH FORMULA ORAL TABS 1 tab po daily MULTIPLE VITAMINS-MINERALS 81322156443 Active Mabel Ozuna APRN Active BIOTIN 5000 MCG ORAL CAPS 3 caps po daily BIOTIN 05388923230 Active Mabel Ozuna APRN Active HYDROXYZINE HCL 25 MG TABS 1 Q BID PRN HYDROXYZINE HCL 65210880616 No Longer Active Mabel Ozuna APRN Active FANAPT 2 MG TABS take 2 tabs at bedtime ILOPERIDONE 68558479455 No Longer Active Kyraina Laith TAN Active PRISTIQ 50 MG [id number] Take 1 tab in the evening for aniety and depression DESVENLAFAXINE SUCCINATE 66451223665 No Longer Active Mabel Ozuna APRN Active TRI-SPRINTEC 0.18/0.215/0.25 MG-35 MCG TABS 1 tablet po daily NORGESTIM-ETH ESTRAD TRIPHASIC 49969024566 No Longer Active Mabel Ozuna APRN Active PREDNISONE 20 MG TAB 2 tabs daily for 3 days, 1 tab daily for 3 days, 1/2 tab daily for 2 days PREDNISONE 98294638437 No Longer Active Jared Maloney DO Active VENTOLIN HFA 108 (90 BASE) MCG/ACT AERS 2 puffs four times a day PRN cough/ SOA ALBUTEROL SULFATE 70876150938 No Longer Active Jared Maloney DO Active TESSALON PERLES 100 MG CAP 1 tablet by mouth 3 times daily PRN cough BENZONATATE 14127449811 No Longer Active Jared Maloney DO Active REMERON 15 MG TABS 1 tablet daily MIRTAZAPINE 12364174100 No Longer Active Jared Maloney DO Active DOXYCYCLINE HYCLATE 100 MG CAP 1 cap by mouth twice daily DOXYCYCLINE HYCLATE 26662874366 No Longer Active Anitha Fournier MD PhD Active [facility] IBUPROFEN 200 MG CAPS 1 tid, PRN IBUPROFEN 59334031546 Active Anitha Fournier MD PhD Active TRAZODONE HCL 100 MG TABS 1 tablet at bedtime TRAZODONE HCL 38303479266 No Longer Active Jaida Shin MD Active LATUDA 40 MG TABS 1 tablet daily LURASIDONE HCL 86013026211 No Longer Active Jiada Shin MD Active ABILIFY 15 MG TABS 1 daily ARIPIPRAZOLE 71000236224 No Longer Active Fadi Blanco MD Active AMOXICILLIN 500 MG CAPS 2 po BID x 10 days AMOXICILLIN 79817709721 No Longer Active Anitha Fournier MD PhD Active SINGULAIR 10 MG TABS 1 po qd PRN runny nose/congestion MONTELUKAST SODIUM 94771306427 No Longer Active Anitha Fournier MD PhD Active AMOXICILLIN 500 MG CAPS 2 po BID x 10 days AMOXICILLIN 45657026534 No Longer Active Anitha Fournier MD PhD Active LEXAPRO 20 MG TABS Take one by mouth daily ESCITALOPRAM OXALATE 91819353647 No Longer Active Anitha Fournier MD PhD Active LAMOTRIGINE 100 MG TABS Take one (1) tablet by mouth twice a day LAMOTRIGINE 69693183551 No Longer Active Anitha Fournire MD PhD Active MELATONIN 5 MG TABS Take 1 tablet by mouth daily MELATONIN 63820924390 No Longer Active Anitha Fournier MD PhD Active MULTIVITAMINS TABS Take 1 tablet by mouth daily MULTIPLE VITAMIN 07254321667 No Longer Active Anitha Fournier MD PhD Active NYSTATIN 514516 UNIT/GM CREA apply to rash TID PRN NYSTATIN 25442255891 No Longer Active Anitha Fournier MD PhD Active AZITHROMYCIN 250 MG TABS 2 po qd x 1 day, then 1 po qd x 4 days AZITHROMYCIN 92780561992 No Longer Active Anitha Fournier MD PhD Active TRAZODONE HCL 50 MG TABS 1/2 @ HS TRAZODONE HCL 46596562843 No Longer Active Jaida Shin MD Active CYPROHEPTADINE HCL 4 MG TABS 1 tablet po at hs CYPROHEPTADINE HCL 45801489707 No Longer Active Anitha Fournier MD PhD Active HYDROXYZINE HCL 50 MG TABS 1-2 tabs po at hs HYDROXYZINE HCL 24905965985 No Longer Active Anitha Fournier MD PhD Active CONCERTA 27 MG CR-TABS 1 tablet daily METHYLPHENIDATE HCL 06756339460 No Longer Active Anitha Fournier MD PhD Active ACETAMINOPHEN-CODEINE #3 300-30 MG TABS 1 pill q 6hrs prn pain ACETAMINOPHEN-CODEINE 89645803071 No Longer Active Jaida Shin MD Active CONCERTA 27 MG CR-TABS 1 tablet daily CONCERTA 27 MG CR-TABS METHYLPHENIDATE HCL Inactive HYDROXYZINE HCL 50 MG TABS 1-2 tabs po at hs HYDROXYZINE HCL 50 MG TABS 477472 HYDROXYZINE HCL Inactive CYPROHEPTADINE HCL 4 MG TABS 1 tablet po at hs CYPROHEPTADINE HCL 4 MG TABS 523105 CYPROHEPTADINE HCL Inactive TRAZODONE HCL 50 MG TABS 1/2 @ HS TRAZODONE HCL 50 MG TABS 767046 TRAZODONE HCL Inactive NYSTATIN 585725 UNIT/GM CREA apply to rash TID PRN NYSTATIN 851133 UNIT/GM CREA 566201 NYSTATIN Inactive MULTIVITAMINS TABS Take 1 tablet by mouth daily MULTIVITAMINS TABS MULTIPLE VITAMIN Inactive MELATONIN 5 MG TABS Take 1 tablet by mouth daily MELATONIN 5 MG TABS 678226 MELATONIN Inactive LAMOTRIGINE 100 MG TABS Take one (1) tablet by mouth twice a day LAMOTRIGINE 100 MG TABS 691748 LAMOTRIGINE Inactive LEXAPRO 20 MG TABS Take one by mouth daily LEXAPRO 20 MG TABS 100543 ESCITALOPRAM OXALATE Inactive ABILIFY 15 MG TABS 1 daily ABILIFY 15 MG TABS 954624 ARIPIPRAZOLE Inactive LATUDA 40 MG TABS 1 tablet daily LATUDA 40 MG TABS LURASIDONE HCL Inactive TRAZODONE HCL 100 MG TABS 1 tablet at bedtime TRAZODONE HCL 100 MG TABS 658094 TRAZODONE HCL Inactive REMERON 15 MG TABS 1 tablet daily REMERON 15 MG TABS 929799 MIRTAZAPINE Inactive TESSALON PERLES 100 MG CAP 1 tablet by mouth 3 times daily PRN cough TESSALON PERLES 100 MG CAP 691884 BENZONATATE Inactive VENTOLIN HFA 108 (90 BASE) MCG/ACT AERS 2 puffs four times a day PRN cough/ SOA VENTOLIN HFA 108 (90 BASE) MCG/ACT AERS ALBUTEROL SULFATE Inactive TRI-SPRINTEC 0.18/0.215/0.25 MG-35 MCG TABS 1 tablet po daily TRI-SPRINTEC 0.18/0.215/0.25 MG-35 MCG TABS 106662 NORGESTIM-ETH ESTRAD TRIPHASIC Inactive PRISTIQ 50 MG [id number] Take 1 tab in the evening for aniety and depression PRISTIQ 50 MG [id number] DESVENLAFAXINE SUCCINATE Inactive FANAPT 2 MG TABS take 2 tabs at bedtime FANAPT 2 MG TABS ILOPERIDONE Inactive HYDROXYZINE HCL 25 MG TABS 1 Q BID PRN HYDROXYZINE HCL 25 MG TABS 211995 HYDROXYZINE HCL Inactive ACETAMINOPHEN-CODEINE #3 300-30 MG TABS 1 pill q 6hrs prn pain ACETAMINOPHEN-CODEINE #3 300-30 MG TABS 561346 ACETAMINOPHEN- CODEINE Inactive AZITHROMYCIN 250 MG TABS 2 po qd x 1 day, then 1 po qd x 4 days AZITHROMYCIN 250 MG TABS 9484064 AZITHROMYCIN Inactive AMOXICILLIN 500 MG CAPS 2 po BID x 10 days AMOXICILLIN 500 MG CAPS 494510 AMOXICILLIN Inactive SINGULAIR 10 MG TABS 1 po qd PRN runny nose/congestion SINGULAIR 10 MG TABS 961047 MONTELUKAST SODIUM Inactive AMOXICILLIN 500 MG CAPS 2 po BID x 10 days AMOXICILLIN 500 MG CAPS 523730 AMOXICILLIN Inactive DOXYCYCLINE HYCLATE 100 MG CAP 1 cap by mouth twice daily DOXYCYCLINE HYCLATE 100 MG CAP 3660336 DOXYCYCLINE HYCLATE Inactive PREDNISONE 20 MG TAB 2 tabs daily for 3 days, 1 tab daily for 3 days, 1/2 tab daily for 2 days PREDNISONE 20 MG TAB 705461 PREDNISONE Inactive Immunizations Vaccine Administration Date Value Standard Description Seasonal influenza vaccine, injectable, preservative free, for > 3 years old ( Afluria, FluLaval, Fluzone, Fluvirin, Fluarix, Agriflu(>=18 yo)) Fluzone preservative free (>3 yrs.) [QWP666] Influenza, seasonal, injectable, preservative free Seasonal influenza vaccine, injectable, preservative free, for > 3 years old ( Afluria, FluLaval, Fluzone, Fluvirin, Fluarix, Agriflu(>=18 yo)) Fluzone preservative free (>3 yrs.) [XPG077] Influenza, seasonal, injectable, preservative free Hepatitis A [...] count 295 10^3/MM^3 10*3/mm3 142-424 [place]: [facility] [place] Chemistry human chorionic gonadotropin, urine, qualitative (urine test) Negative Negative Encounters Code Encounter Date Provider Facility CPT-07352 Level 3 Est. Patient 21:38:45 CDT Jared Maloney DO [facility] CPT-36668 Level 4 Est. Patient 18:13:37 AUTOMOBILE BRAKES BONDER Anitha Fournier MD [facility] CPT-61503 Level 3 Est. Patient 13:24:15 AUTOMOBILE BRAKES BONDER Anitha Fournier MD [facility] CPT-86023 Level 3 Est. Patient 08:50:05 CDT Jaida Shin MD [facility] CPT-48131 Level 3 Est. Patient 09:28:01 CDT Mabel Ozuna APRN [facility] CPT-64954 Level 3 Est. Patient 16:40:06 AUTOMOBILE BRAKES BONDER Anitha Fournier MD [facility] CPT-70848 Level 3 Est. Patient 12:36:13 CDT Anitha Fournier MD [facility] CPT-23686 Level 3 Est. Patient 18:37:20 CDT Anitha Fournier MD [facility] CPT-55961 Level 2 Est. Patient 13:42:23 CDT Anitha Fournier MD [facility] CPT-96007 Level 3 Est. Patient 16:20:08 CDT Anitha Fournier MD [facility] CPT-82517 Level 3 Est. Patient 10:48:04 CDT Jaida Shin MD [facility] CPT-19865 Level 4 Est. Patient 19:54:37 CDT Anitha Fournier MD [facility] CPT-67874 Level 3 Est. Patient 14:44:10 CDT Jaida Shin MD [facility] CPT-68870 Level 3 Est. Patient 18:39:52 AUTOMOBILE BRAKES BONDER Anitha Fournier MD [facility] CPT-41787 Level 2 Est. Patient 17:11:04 AUTOMOBILE BRAKES BONDER Jaida Shin MD [facility] CPT-21298 Level 3 Est. Patient 16:20:25 AUTOMOBILE BRAKES BONDER Jaida Shin MD [facility] Procedures Code Procedure Name Date Entry Date Standard Description CPT-83039 Administration single or combination vaccine inc oral 11 :29:34 CDT CPT-20199 Influenza Preservative Free split virus >age 3 11:29:34 CDT CPT-91516 Chest 2V Frontal and Lat 09:13:38 CDT CPT-54861 Abd single AP View 12:11:59 CDT CPT-43880 Sono abd com inc all organs plus proximal aorta and distal IVC 2011 09:05:56 CDT CPT-86346 Abd compl w upright 10:39:58 CDT CPT-J0696 Rocephin 500 mg (Ceftriaxone) 13:49:25 CDT CPT-76299 Abx/Therapy Injection 13:49:25 CDT CPT-J0696 Rocephin 500 mg (Ceftriaxone) 13:25:42 CDT CPT-77348 Abd single AP View 13:13:10 CDT CPT-000 Give Appropriate Flu Vaccine 17:02:34 AUTOMOBILE BRAKES BONDER CPT-000 Give Immunizations Due 17:02:34 AUTOMOBILE BRAKES BONDER CPT-29607 Administration 2+ single or combination vaccines inc oral 17:35:00 AUTOMOBILE BRAKES BONDER CPT-14948 Administration single or combination vaccine inc oral 17 :35:00 AUTOMOBILE BRAKES BONDER CPT-27979 Influenza Preservative Free split virus >age 3 17:35:00 AUTOMOBILE BRAKES BONDER CPT-00317 Hepatitis A ped/adol 2 dose schedule 17:35:00 AUTOMOBILE BRAKES BONDER 07/06 CPT-11646 Meningococcal Conjugate Vacine (Menactra) 17:35:00 AUTOMOBILE BRAKES BONDER CPT-L3908 Cockup Splint 16:20:25 AUTOMOBILE BRAKES BONDER CPT-78505 Hand comp min 3V 16:20:25 AUTOMOBILE BRAKES BONDER
--- OUTSIDE RECORDS SUMMARY | 2018-02-13 13:00 | XMS REPORT | Clinical Summary ---
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 CLONIDINE Critical Active aJida Shin MD Conditions or Problems Problem Name [...] Routine gynecological examination V72.31 Active Mabel Coolricardo [employer]BLER Routine gynecological examination HAND PAIN, RIGHT ICD-729.5 [...] mouth daily for control 01/05 NORGESTIMATE-ETH ESTRADIOL 41218128912 Active Mabel Ozuna APRN Active EQL IRON SUPPLEMENT THERAPY 325 MG ORAL TABS 1 tab po daily FERROUS SULFATE 16871171539 Active Mabel Ozuna APRN Active DAILY WOMENS HEALTH FORMULA ORAL TABS 1 tab po daily MULTIPLE VITAMINS-MINERALS 47531205239 Active Mabel Ozuna APRN Active BIOTIN 5000 MCG ORAL CAPS 3 caps po daily BIOTIN 75801155464 Active Mabel Ozuna APRN Active HYDROXYZINE HCL 25 MG TABS 1 Q BID PRN HYDROXYZINE HCL 21013536058 No Longer Active Mabel Ozuna APRN Active FANAPT 2 MG TABS take 2 tabs at bedtime ILOPERIDONE 63246107551 No Longer Active Mabel Ozuna APRN Active PRISTIQ 50 MG [id number] Take 1 tab in the evening for aniety and depression DESVENLAFAXINE SUCCINATE 13037869590 No Longer Active Mabel Ozuna APRN Active TRI-SPRINTEC 0.18/0.215/0.25 MG-35 MCG TABS 1 tablet po daily NORGESTIM-ETH ESTRAD TRIPHASIC 22627224546 No Longer Active Mabel Ozuna APRN Active PREDNISONE 20 MG TAB 2 tabs daily for 3 days, 1 tab daily for 3 days, 1/2 tab daily for 2 days PREDNISONE 11318284758 No Longer Active Jared Maloney DO Active VENTOLIN HFA 108 (90 BASE) MCG/ACT AERS 2 puffs four times a day PRN cough/ SOA ALBUTEROL SULFATE 61880649757 No Longer Active Jared Maloney DO Active TESSALON PERLES 100 MG CAP 1 tablet by mouth 3 times daily PRN cough BENZONATATE 95313899850 No Longer Active Jared Maloney DO Active REMERON 15 MG TABS 1 tablet daily MIRTAZAPINE 95261388033 No Longer Active Jared Maloney DO Active DOXYCYCLINE HYCLATE 100 MG CAP 1 cap by mouth twice daily DOXYCYCLINE HYCLATE 28582020995 No Longer Active Anitha Fournier MD PhD Active [facility] IBUPROFEN 200 MG CAPS 1 tid, PRN IBUPROFEN 14956843233 Active Anitha Fournier MD PhD Active TRAZODONE HCL 100 MG TABS 1 tablet at bedtime TRAZODONE HCL 14324347447 No Longer Active Jaida Shin MD Active LATUDA 40 MG TABS 1 tablet daily LURASIDONE HCL 35598914345 No Longer Active Jaida Shin MD Active ABILIFY 15 MG TABS 1 daily ARIPIPRAZOLE 41992938326 No Longer Active Fadi Blanco MD Active AMOXICILLIN 500 MG CAPS 2 po BID x 10 days AMOXICILLIN 00736149810 No Longer Active Anitha Fournier MD PhD Active SINGULAIR 10 MG TABS 1 po qd PRN runny nose/congestion MONTELUKAST SODIUM 95547137718 No Longer Active Anitha Fournier MD PhD Active AMOXICILLIN 500 MG CAPS 2 po BID x 10 days AMOXICILLIN 16832591370 No Longer Active Anitha Fournier MD PhD Active LEXAPRO 20 MG TABS Take one by mouth daily ESCITALOPRAM OXALATE 95940500275 No Longer Active Anitha Fournier MD PhD Active LAMOTRIGINE 100 MG TABS Take one (1) tablet by mouth twice a day LAMOTRIGINE 36951765549 No Longer Active Anitha Fournier MD PhD Active MELATONIN 5 MG TABS Take 1 tablet by mouth daily MELATONIN 74641910518 No Longer Active Anitha Fournier MD PhD Active MULTIVITAMINS TABS Take 1 tablet by mouth daily MULTIPLE VITAMIN 20404206464 No Longer Active Anitha Fournier MD PhD Active NYSTATIN 634794 UNIT/GM CREA apply to rash TID PRN NYSTATIN 45754985306 No Longer Active Anitha Fournire MD PhD Active AZITHROMYCIN 250 MG TABS 2 po qd x 1 day, then 1 po qd x 4 days AZITHROMYCIN 03554272042 No Longer Active Anitha Fournier MD PhD Active TRAZODONE HCL 50 MG TABS 1/2 @ HS TRAZODONE HCL 38184357701 No Longer Active Jaida Shin MD Active CYPROHEPTADINE HCL 4 MG TABS 1 tablet po at hs CYPROHEPTADINE HCL 18721053483 No Longer Active Anitha Fournier MD PhD Active HYDROXYZINE HCL 50 MG TABS 1-2 tabs po at hs HYDROXYZINE HCL 12166852722 No Longer Active Anitha Fournier MD PhD Active CONCERTA 27 MG CR-TABS 1 tablet daily METHYLPHENIDATE HCL 94429923694 No Longer Active Anitha Fournier MD PhD Active ACETAMINOPHEN-CODEINE #3 300-30 MG TABS 1 pill q 6hrs prn pain ACETAMINOPHEN-CODEINE 29128391882 No Longer Active Jaida Shin MD Active CONCERTA 27 MG CR-TABS 1 tablet daily CONCERTA 27 MG CR-TABS METHYLPHENIDATE HCL Inactive HYDROXYZINE HCL 50 MG TABS 1-2 tabs po at hs HYDROXYZINE HCL 50 MG TABS 367986 HYDROXYZINE HCL Inactive CYPROHEPTADINE HCL 4 MG TABS 1 tablet po at hs CYPROHEPTADINE HCL 4 MG TABS 591885 CYPROHEPTADINE HCL Inactive TRAZODONE HCL 50 MG TABS 1/2 @ HS TRAZODONE HCL 50 MG TABS 059510 TRAZODONE HCL Inactive NYSTATIN 868911 UNIT/GM CREA apply to rash TID PRN NYSTATIN 856469 UNIT/GM CREA 030154 NYSTATIN Inactive MULTIVITAMINS TABS Take 1 tablet by mouth daily MULTIVITAMINS TABS MULTIPLE VITAMIN Inactive MELATONIN 5 MG TABS Take 1 tablet by mouth daily MELATONIN 5 MG TABS 387345 MELATONIN Inactive LAMOTRIGINE 100 MG TABS Take one (1) tablet by mouth twice a day LAMOTRIGINE 100 MG TABS 420896 LAMOTRIGINE Inactive LEXAPRO 20 MG TABS Take one by mouth daily LEXAPRO 20 MG TABS 466119 ESCITALOPRAM OXALATE Inactive ABILIFY 15 MG TABS 1 daily ABILIFY 15 MG TABS 379409 ARIPIPRAZOLE Inactive LATUDA 40 MG TABS 1 tablet daily LATUDA 40 MG TABS LURASIDONE HCL Inactive TRAZODONE HCL 100 MG TABS 1 tablet at bedtime TRAZODONE HCL 100 MG TABS 832520 TRAZODONE HCL Inactive REMERON 15 MG TABS 1 tablet daily REMERON 15 MG TABS 340403 MIRTAZAPINE Inactive TESSALON PERLES 100 MG CAP 1 tablet by mouth 3 times daily PRN cough TESSALON PERLES 100 MG CAP 669230 BENZONATATE Inactive VENTOLIN HFA 108 (90 BASE) MCG/ACT AERS 2 puffs four times a day PRN cough/ SOA VENTOLIN HFA 108 (90 BASE) MCG/ACT AERS ALBUTEROL SULFATE Inactive TRI-SPRINTEC 0.18/0.215/0.25 MG-35 MCG TABS 1 tablet po daily TRI-SPRINTEC 0.18/0.215/0.25 MG-35 MCG TABS 470313 NORGESTIM-ETH ESTRAD TRIPHASIC Inactive PRISTIQ 50 MG [id number] Take 1 tab in the evening for aniety and depression PRISTIQ 50 MG [id number] DESVENLAFAXINE SUCCINATE Inactive FANAPT 2 MG TABS take 2 tabs at bedtime FANAPT 2 MG TABS ILOPERIDONE Inactive HYDROXYZINE HCL 25 MG TABS 1 Q BID PRN HYDROXYZINE HCL 25 MG TABS 899334 HYDROXYZINE HCL Inactive ACETAMINOPHEN-CODEINE #3 300-30 MG TABS 1 pill q 6hrs prn pain ACETAMINOPHEN-CODEINE #3 300-30 MG TABS 886968 ACETAMINOPHEN- CODEINE Inactive AZITHROMYCIN 250 MG TABS 2 po qd x 1 day, then 1 po qd x 4 days AZITHROMYCIN 250 MG TABS 6730327 AZITHROMYCIN Inactive AMOXICILLIN 500 MG CAPS 2 po BID x 10 days AMOXICILLIN 500 MG CAPS 235463 AMOXICILLIN Inactive SINGULAIR 10 MG TABS 1 po qd PRN runny nose/congestion SINGULAIR 10 MG TABS 769121 MONTELUKAST SODIUM Inactive AMOXICILLIN 500 MG CAPS 2 po BID x 10 days AMOXICILLIN 500 MG CAPS 742162 AMOXICILLIN Inactive DOXYCYCLINE HYCLATE 100 MG CAP 1 cap by mouth twice daily DOXYCYCLINE HYCLATE 100 MG CAP 6883280 DOXYCYCLINE HYCLATE Inactive PREDNISONE 20 MG TAB 2 tabs daily for 3 days, 1 tab daily for 3 days, 1/2 tab daily for 2 days PREDNISONE 20 MG TAB 872061 PREDNISONE Inactive Immunizations Vaccine Administration Date Value Standard Description Seasonal influenza vaccine, injectable, preservative free, for > 3 years old ( Afluria, FluLaval, Fluzone, Fluvirin, Fluarix, Agriflu(>=18 yo)) Fluzone preservative free (>3 yrs.) [GPO665] Influenza, seasonal, injectable, preservative free Seasonal influenza vaccine, injectable, preservative free, for > 3 years old ( Afluria, FluLaval, Fluzone, Fluvirin, Fluarix, Agriflu(>=18 yo)) Fluzone preservative free (>3 yrs.) [[id number]] Influenza, seasonal, injectable, preservative free Hepatitis A [...] 295 10^3/MM^3 10*3/mm3 142-424 Lab Report: Chlamydia/[facility]/93780 - Lab chlamydia DNA probe NOT DETECTED NOT DETECTED Lab Report: Chlamydia/[facility]/56126 - Microbiology Neisseria gonorrhoeae DNA probe NOT DETECTED NOT DETECTED Lab Report: [facility] [place] - Chemistry human chorionic gonadotropin, urine, qualitative (urine test) Negative Negative human chorionic gonadotropin, urine, qualitative (urine test) Negative Negative Encounters Code Encounter Date Provider Facility CPT-49919 Level 3 Est. Patient 21:38:45 CDT Jared Maloney DO [facility] CPT-39176 Level 4 Est. Patient 18:13:37 PATIENT ATTENDANT Anitha Fournier MD [facility] CPT-05460 Level 3 Est. Patient 13:24:15 PATIENT ATTENDANT Anitha Fournier MD [facility] CPT-36762 Level 3 Est. Patient 08:50:05 CDT Jaida Shin MD [facility]-13028 Level 3 Est. Patient 09:28:01 CDT Mabel Ozuna APRN [facility] CPT-28852 Level 3 Est. Patient 16:40:06 PATIENT ATTENDANT Anitha Fournier MD [facility] CPT-23469 Level 3 Est. Patient 12:36:13 CDT Anitha Fournier MD PhD [facility] CPT-48492 Level 3 Est. Patient 18:37:20 CDT Anitha Fournier MD [facility] CPT-40603 Level 2 Est. Patient 13:42:23 CDT Anitha Fournier MD [facility]-68344 Level 3 Est. Patient 16:20:08 CDT Anitha Fournier MD [facility] CPT-06750 Level 3 Est. Patient 10:48:04 CDT Jaida Shin MD [facility] CPT-13558 Level 4 Est. Patient 19:54:37 CDT Anitha Fournier MD [facility] CPT-81151 Level 3 Est. Patient 14:44:10 CDT Jaida Shin MD [facility] CPT-33769 Level 3 Est. Patient 18:39:52 PATIENT ATTENDANT Anitha Fournier MD [facility] CPT-30144 Level 2 Est. Patient 17:11:04 PATIENT ATTENDANT Jaida Shin MD [facility] CPT-82268 Level 3 Est. Patient 16:20:25 PATIENT ATTENDANT Jaida Shin MD [facility] Procedures Code Procedure Name Date Entry Date Standard Description CPT-90323 Administration single or combination vaccine inc oral 11 :29:34 CDT CPT-89934 Influenza Preservative Free split virus >age 3 11:29:34 CDT CPT-62583 Chest 2V Frontal and Lat 09:13:38 CDT CPT-53695 Abd single AP View 12:11:59 CDT CPT-09530 Sono abd com inc all organs plus proximal aorta and distal IVC 2011 09:05:56 CDT CPT-55760 Abd compl w upright 10:39:58 CDT CPT-J0696 Rocephin 500 mg (Ceftriaxone) 13:49:25 CDT CPT-44893 Abx/Therapy Injection 13:49:25 CDT CPT-J0696 Rocephin 500 mg (Ceftriaxone) 13:25:42 CDT CPT-19418 Abd single AP View 13:13:10 CDT CPT-000 Give Appropriate Flu Vaccine 17:02:34 PATIENT ATTENDANT CPT-000 Give Immunizations Due 17:02:34 PATIENT ATTENDANT CPT-40216 Administration 2+ single or combination vaccines inc oral 17:35:00 PATIENT ATTENDANT CPT-72489 Administration single or combination vaccine inc oral 17 :35:00 PATIENT ATTENDANT CPT-53117 Influenza Preservative Free split virus >age 3 17:35:00 PATIENT ATTENDANT CPT-83531 Hepatitis A ped/adol 2 dose schedule 17:35:00 PATIENT ATTENDANT 07/06 CPT-25165 Meningococcal Conjugate Vacine (Menactra) 17:35:00 PATIENT ATTENDANT CPT-L3908 Cockup Splint 16:20:25 PATIENT ATTENDANT CPT-53787 Hand comp min 3V 16:20:25 PATIENT ATTENDANT
--- OUTSIDE RECORDS SUMMARY | 2018-02-13 13:03 | XMS REPORT | Clinical Summary ---
Author Author Admin, ZULY Organization [facility] Address Unknown Phone Unavailable Allergies, Adverse Reactions, Alerts Allergy Name Reaction Description Start Date Severity Status Provider AMOXICILLIN Hives Severe Active Mabel Ozuna MINE [facility] CLONIDINE Critical Active Jaida Shin MD Conditions [...] wrist Routine gynecological examination V72.31 Active Mabel Sandrakamilah TAN Routine gynecological examination HEALTH EXAMINATION OF DEFINED SUBPOPULATION ICD-V70.5 Inactive Anitha Fournier MD PhD BRONCHITIS-ACUTE ICD-466.0 Inactive Jaida Shin MD FATIGUE ICD-780.79 Inactive Anitha Fournier MD PhD HAND PAIN, RIGHT ICD-729.5 Inactive Anitha Fournier MD PhD ABDOMINAL PAIN ICD-789.00 Inactive Jaida Shin MD BACK PAIN ICD-724.5 Inactive Anitha Fournier MD PhD CHLAMYDIAL INFECTION ICD-099.41 Inactive Anitha Fournier MD PhD PELVIC INFLAMMATORY DISEASE, ACUTE ICD-614.9 Inactive Anitha Fournier MD PhD FATIGUE ICD-780.79 Inactive Anitha Fournier MD PhD NAUSEA AND VOMITING ICD-787.01 Inactive Anitha Fournier MD PhD SEXUAL ACTIVITY, HIGH RISK ICD-V69.2 Inactive Anitha Fournier MD PhD ABDOMINAL PAIN ICD-789.00 Inactive Anitha Fournier MD PhD SINUSITIS, ACUTE ICD-461.9 Inactive Anitha Fournier MD PhD SINUSITIS, ACUTE ICD-461.9 Inactive Fadi Blanco MD GALACTORRHEA ICD-611.6 Inactive Jaida Shin MD ABDOMINAL PAIN, LEFT UPPER QUADRANT ICD-789.02 Inactive Jaida Shin MD FREQUENCY, URINARY ICD-788.41 Inactive Jaida Shin MD SOB ICD-786.09 Inactive Anitha Fournier MD PhD URI ICD-465.9 Inactive Anitha Fournier MD PhD UTI ICD-599.0 Inactive Anitha Fournier MD PhD NECK PAIN ICD-723.1 Inactive Anitha Fournier MD PhD Medication List Medication Instructions Start Date Stop Date Generic Name NDC Status Provider Patient Instruction EQL IRON SUPPLEMENT THERAPY 325 MG ORAL TABS 1 tab po daily FERROUS SULFATE 16334149607 Active Mabel Ozuna APRN Active DAILY [facility] FORMULA ORAL TABS 1 tab po daily MULTIPLE VITAMINS-MINERALS 94934265111 Active Mabel Ozuna APRN Active BIOTIN 5000 MCG ORAL CAPS 3 caps po daily BIOTIN 18174987319 Active Mabel Ozuna APRN Active HYDROXYZINE HCL 25 MG TABS 1 Q BID PRN HYDROXYZINE HCL 04207120871 No Longer Active Mabel Ozuna APRN Active FANAPT 2 MG TABS take 2 tabs at bedtime ILOPERIDONE 61452601319 No Longer Active Kyraina Laith TAN Active PRISTIQ 50 MG [id number] Take 1 tab in the evening for aniety and depression DESVENLAFAXINE SUCCINATE 11111573677 No Longer Active Mabel Ozuna APRN Active TRI-SPRINTEC 0.18/0.215/0.25 MG-35 MCG TABS 1 tablet po daily NORGESTIM-ETH ESTRAD TRIPHASIC 45549525554 No Longer Active Mabel Ozuna APRN Active PREDNISONE 20 MG TAB 2 tabs daily for 3 days, 1 tab daily for 3 days, 1/2 tab daily for 2 days PREDNISONE 01113916870 No Longer Active Jared Maloney DO Active VENTOLIN HFA 108 (90 BASE) MCG/ACT AERS 2 puffs four times a day PRN cough/ SOA ALBUTEROL SULFATE 16783054571 No Longer Active Jared Maloney DO Active TESSALON PERLES 100 MG CAP 1 tablet by mouth 3 times daily PRN cough BENZONATATE 02690280680 No Longer Active Jared Maloney DO Active REMERON 15 MG TABS 1 tablet daily MIRTAZAPINE 37742219149 No Longer Active Jared Maloney DO Active DOXYCYCLINE HYCLATE 100 MG CAP 1 cap by mouth twice daily DOXYCYCLINE HYCLATE 57720784672 No Longer Active Anitha Fournier MD PhD Active [facility] IBUPROFEN 200 MG CAPS 1 tid, PRN IBUPROFEN 57769046387 Active Anitha Fournier MD PhD Active TRAZODONE HCL 100 MG TABS 1 tablet at bedtime TRAZODONE HCL 81958520224 No Longer Active Jaida Shin MD Active LATUDA 40 MG TABS 1 tablet daily LURASIDONE HCL 60253877006 No Longer Active Jaida Shin MD Active ABILIFY 15 MG TABS 1 daily ARIPIPRAZOLE 20929851535 No Longer Active Fadi Blanco MD Active AMOXICILLIN 500 MG CAPS 2 po BID x 10 days AMOXICILLIN 27825039788 No Longer Active Anitha Fournier MD PhD Active SINGULAIR 10 MG TABS 1 po qd PRN runny nose/congestion MONTELUKAST SODIUM 70577241538 No Longer Active Anitha Fournier MD PhD Active AMOXICILLIN 500 MG CAPS 2 po BID x 10 days AMOXICILLIN 10503298434 No Longer Active Anitha Fournier MD PhD Active LEXAPRO 20 MG TABS Take one by mouth daily ESCITALOPRAM OXALATE 24907608148 No Longer Active Anitha Fournier MD PhD Active LAMOTRIGINE 100 MG TABS Take one (1) tablet by mouth twice a day LAMOTRIGINE 35302920895 No Longer Active Anitha Fournier MD PhD Active MELATONIN 5 MG TABS Take 1 tablet by mouth daily MELATONIN 95032717530 No Longer Active Anitha Fournier MD PhD Active MULTIVITAMINS TABS Take 1 tablet by mouth daily MULTIPLE VITAMIN 76670473169 No Longer Active Anitha Fournier MD PhD Active NYSTATIN 992800 UNIT/GM CREA apply to rash TID PRN NYSTATIN 51177942462 No Longer Active Anitha Fournier MD PhD Active AZITHROMYCIN 250 MG TABS 2 po qd x 1 day, then 1 po qd x 4 days AZITHROMYCIN 76470828265 No Longer Active Anitha Fournier MD PhD Active TRAZODONE HCL 50 MG TABS 1/2 @ HS TRAZODONE HCL 02399178441 No Longer Active Jaida Shin MD Active CYPROHEPTADINE HCL 4 MG TABS 1 tablet po at hs CYPROHEPTADINE HCL 45280704247 No Longer Active Anitha Fournier MD PhD Active HYDROXYZINE HCL 50 MG TABS 1-2 tabs po at hs HYDROXYZINE HCL 59963695784 No Longer Active Anitha Fournier MD PhD Active CONCERTA 27 MG CR-TABS 1 tablet daily METHYLPHENIDATE HCL 08603418817 No Longer Active Anitha Fournier MD PhD Active ACETAMINOPHEN-CODEINE #3 300-30 MG TABS 1 pill q 6hrs prn pain ACETAMINOPHEN-CODEINE 99053873456 No Longer Active Jaida Shin MD Active CONCERTA 27 MG CR-TABS 1 tablet daily CONCERTA 27 MG CR-TABS METHYLPHENIDATE HCL Inactive HYDROXYZINE HCL 50 MG TABS 1-2 tabs po at hs HYDROXYZINE HCL 50 MG TABS 996293 HYDROXYZINE HCL Inactive CYPROHEPTADINE HCL 4 MG TABS 1 tablet po at hs CYPROHEPTADINE HCL 4 MG TABS 734860 CYPROHEPTADINE HCL Inactive TRAZODONE HCL 50 MG TABS 1/2 @ HS TRAZODONE HCL 50 MG TABS 894261 TRAZODONE HCL Inactive NYSTATIN 163855 UNIT/GM CREA apply to rash TID PRN NYSTATIN 453828 UNIT/GM CREA 419756 NYSTATIN Inactive MULTIVITAMINS TABS Take 1 tablet by mouth daily MULTIVITAMINS TABS MULTIPLE VITAMIN Inactive MELATONIN 5 MG TABS Take 1 tablet by mouth daily MELATONIN 5 MG TABS 659159 MELATONIN Inactive LAMOTRIGINE 100 MG TABS Take one (1) tablet by mouth twice a day LAMOTRIGINE 100 MG TABS 178605 LAMOTRIGINE Inactive LEXAPRO 20 MG TABS Take one by mouth daily LEXAPRO 20 MG TABS 729633 ESCITALOPRAM OXALATE Inactive ABILIFY 15 MG TABS 1 daily ABILIFY 15 MG TABS 370963 ARIPIPRAZOLE Inactive LATUDA 40 MG TABS 1 tablet daily LATUDA 40 MG TABS LURASIDONE HCL Inactive TRAZODONE HCL 100 MG TABS 1 tablet at bedtime TRAZODONE HCL 100 MG TABS 729033 TRAZODONE HCL Inactive REMERON 15 MG TABS 1 tablet daily REMERON 15 MG TABS 720879 MIRTAZAPINE Inactive TESSALON PERLES 100 MG CAP 1 tablet by mouth 3 times daily PRN cough TESSALON PERLES 100 MG CAP 773853 BENZONATATE Inactive VENTOLIN HFA 108 (90 BASE) MCG/ACT AERS 2 puffs four times a day PRN cough/ SOA VENTOLIN HFA 108 (90 BASE) MCG/ACT AERS ALBUTEROL SULFATE Inactive TRI-SPRINTEC 0.18/0.215/0.25 MG-35 MCG TABS 1 tablet po daily TRI-SPRINTEC 0.18/0.215/0.25 MG-35 MCG TABS 174675 NORGESTIM-ETH ESTRAD TRIPHASIC Inactive PRISTIQ 50 MG [id number] Take 1 tab in the evening for aniety and depression PRISTIQ 50 MG [id number] DESVENLAFAXINE SUCCINATE Inactive FANAPT 2 MG TABS take 2 tabs at bedtime FANAPT 2 MG TABS ILOPERIDONE Inactive HYDROXYZINE HCL 25 MG TABS 1 Q BID PRN HYDROXYZINE HCL 25 MG TABS 310296 HYDROXYZINE HCL Inactive ACETAMINOPHEN-CODEINE #3 300-30 MG TABS 1 pill q 6hrs prn pain ACETAMINOPHEN-CODEINE #3 300-30 MG TABS 896137 ACETAMINOPHEN- CODEINE Inactive AZITHROMYCIN 250 MG TABS 2 po qd x 1 day, then 1 po qd x 4 days AZITHROMYCIN 250 MG TABS 9150415 AZITHROMYCIN Inactive AMOXICILLIN 500 MG CAPS 2 po BID x 10 days AMOXICILLIN 500 MG CAPS 596021 AMOXICILLIN Inactive SINGULAIR 10 MG TABS 1 po qd PRN runny nose/congestion SINGULAIR 10 MG TABS 326026 MONTELUKAST SODIUM Inactive AMOXICILLIN 500 MG CAPS 2 po BID x 10 days AMOXICILLIN 500 MG CAPS 318778 AMOXICILLIN Inactive DOXYCYCLINE HYCLATE 100 MG CAP 1 cap by mouth twice daily DOXYCYCLINE HYCLATE 100 MG CAP 3041792 DOXYCYCLINE HYCLATE Inactive PREDNISONE 20 MG TAB 2 tabs daily for 3 days, 1 tab daily for 3 days, 1/2 tab daily for 2 days PREDNISONE 20 MG TAB 777201 PREDNISONE Inactive Immunizations Vaccine Administration Date Value Standard Description Seasonal influenza vaccine, injectable, preservative free, for > 3 years old ( Afluria, FluLaval, Fluzone, Fluvirin, Fluarix, Agriflu(>=18 yo)) Fluzone preservative free (>3 yrs.) [VLD216] Influenza, seasonal, injectable, preservative free Seasonal influenza vaccine, injectable, preservative free, for > 3 years old ( Afluria, FluLaval, Fluzone, Fluvirin, Fluarix, Agriflu(>=18 yo)) Fluzone preservative free (>3 yrs.) [[id number]] Influenza, seasonal, injectable, preservative free Hepatitis A [...] 295 10^3/MM^3 10*3/mm3 142-424 Lab Report: Chlamydia/GC APTIMA/[id number] - Lab chlamydia DNA probe NOT DETECTED NOT DETECTED Lab Report: Chlamydia/GC [facility]TIM[facility]/[id number] - Microbiology Neisseria gonorrhoeae DNA probe NOT DETECTED NOT DETECTED Lab Report: [facility] [place] - Chemistry human chorionic gonadotropin, urine, qualitative (urine test) Negative Negative Encounters Code Encounter Date Provider Facility CPT-87323 Level 3 Est. Patient 21:38:45 CDT Jared Stover Haider GOMEZ [facility] CPT-64295 Level 4 Est. Patient 18:13:37 [employer] Anitha Fournier MD [facility]-06301 Level 3 Est. Patient 13:24:15 [employer] Anitha Fournier MD [facility]-05230 Level 3 Est. Patient 08:50:05 CDT Jaida Shin MD -[id number] Level 3 Est. Patient 09:28:01 CDT Mabel Ozuna APRN [facility]-80177 Level 3 Est. Patient 16:40:06 [employer] Anitha Fournier MD [facility]-30732 Level 3 Est. Patient 12:36:13 CDT Anitha Fournier MD [facility]-66125 Level 3 Est. Patient 18:37:20 CDT Anitha Fournier MD [facility]-89696 Level 2 Est. Patient 13:42:23 CDT Anitha Fournier MD [facility]-01131 Level 3 Est. Patient 16:20:08 CDT Anitha Fournier MD [facility]-62204 Level 3 Est. Patient 10:48:04 CDT Jaida Shin MD [facility]-62141 Level 4 Est. Patient 19:54:37 CDT Anitha Fournier MD [facility]-08620 Level 3 Est. Patient 14:44:10 CDT Jaida Shin MD [facility]-71678 Level 3 Est. Patient 18:39:52 [employer] Anitha Fournier MD [facility]-72721 Level 2 Est. Patient 17:11:04 [employer] Jaida Shin MD [facility] CPT-86928 Level 3 Est. Patient 16:20:25 [employer] Jaida Shin MD [facility] Procedures Code Procedure Name Date Entry Date Standard Description CPT-77289 Administration single or combination vaccine inc oral 11 :29:34 CDT CPT-65113 Influenza Preservative Free split virus >age 3 11:29:34 CDT CPT-53109 Chest 2V Frontal and Lat 09:13:38 CDT CPT-05864 Abd single AP View 12:11:59 CDT CPT-22409 Sono abd com inc all organs plus proximal aorta and distal IVC 2011 09:05:56 CDT CPT-70424 Abd compl w upright 10:39:58 CDT CPT-J0696 Rocephin 500 mg (Ceftriaxone) 13:49:25 CDT CPT-65724 Abx/Therapy Injection 13:49:25 CDT CPT-J0696 Rocephin 500 mg (Ceftriaxone) 13:25:42 CDT CPT-80046 Abd single AP View 13:13:10 CDT CPT-000 Give Appropriate Flu Vaccine 17:02:34 [employer] CPT-000 Give Immunizations Due 17:02:34 [employer] CPT-54334 Administration 2+ single or combination vaccines inc oral 17:35:00 [employer] CPT-35219 Administration single or combination vaccine inc oral 17 :35:00 [employer] CPT-60119 Influenza Preservative Free split virus >age 3 17:35:00 [employer] CPT-68461 Hepatitis A ped/adol 2 dose schedule 17:35:00 [employer] 07/06 CPT-50048 Meningococcal Conjugate Vacine (Menactra) 17:35:00 [employer] CPT-L3908 Cockup Splint 16:20:25 [employer] CPT-22816 Hand comp min 3V 16:20:25 [employer]
--- OUTSIDE RECORDS SUMMARY | 2018-02-13 13:11 | XMS REPORT | Continuity of Care Document ---
Demographics x Preferred Language Unknown Marital Status Unknown Roman Catholic Affiliation Unknown Race Unknown Ethnic Group Unknown Author Author [facility] Organization [facility] Address Unknown Phone Unavailable Allergies Active Description Code Type Severity Reaction Onset Reported/Identified Relationship to Patient Clinical Status Yes clonidine 4495 Drug Allergy N/ A N/A Yes No known drug allergies [id number] Drug Allergy N/A N/A Confirmed but inactive Yes clonidine [id number] Drug Allergy Moderate N/A 02/16/2014 Yes amoxicillin [id number] Drug Allergy Unknown RASH 07/05/2017 Medications There is no data. Problems Date Dx Coded Attending Type Code Diagnosis Diagnosed By 02/16/2014 RUKHSANA DUMONT DO Ot 681.02 ONYCHIA OF FINGER 02/16/2014 RUKHSANA DUMONT DO Ot 959.5 FINGER INJURY NOS 02/16/2014 RUKHSANA DUMONT DO Ot E000.8 OTHER EXTERNAL CAUSE STATUS 02/16/2014 RUKHSANA DUMONT DO Ot E918 CAUGHT BETWEEN OBJECTS 05/25/2017 AYAH SIMS MD Ot O20.8 OTHER HEMORRHAGE IN EARLY 05/25/2017 AYAH SIMS MD Ot Z3A.08 8 WEEKS GESTATION OF 05/29/2017 AYAH SIMS MD Ot O20.8 OTHER HEMORRHAGE IN EARLY 05/29/2017 AYAH SIMS MD Ot Z3A.08 8 WEEKS GESTATION OF 06/08/2017 EDGARDO PHAM MD R Ot O46.91 ANTEPARTUM HEMORRHAGE, UNSPECIFIED, FIRS 06/08/2017 EDGARDO PHAM MD Ot Z3A.13 13 WEEKS GESTATION OF 07/04/2017 AYAH SIMS MD Ot O20.8 OTHER HEMORRHAGE IN EARLY 07/04/2017 AYAH SIMS MD Ot Z3A.08 8 WEEKS GESTATION OF 07/04/2017 EDGARDO PHAM MD Ot O46.91 ANTEPARTUM HEMORRHAGE, UNSPECIFIED, FIRS 07/04/2017 EDGARDO PHAM MD Ot Z3A.13 13 WEEKS GESTATION OF 07/05/2017 AYAH SIMS MD Ot Z36.89 ENCOUNTER FOR OTHER SPECIFIED 07/05/2017 AYAH SIMS MD Ot Z3A.16 16 WEEKS GESTATION OF 07/06/2017 EDGARDO PHAM MD Ot O02.1 MISSED 07/06/2017 EDGARDO PHAM MD Ot O41.1220 CHORIOAMNIONITIS, SECOND TRIMESTER, NOT 07/06/2017 EDGARDO PHAM MD Ot Z3A.19 19 WEEKS GESTATION OF 07/10/2017 AYAH SIMS MD Ot Z36.89 ENCOUNTER FOR OTHER SPECIFIED 07/10/2017 AYAH SIMS MD Ot Z3A.16 16 WEEKS GESTATION OF 07/10/2017 EDGARDO PHAM MD Ot O02.1 MISSED 07/10/2017 EDGARDO PHAM MD Ot O41.1220 CHORIOAMNIONITIS, SECOND TRIMESTER, NOT 07/10/2017 EDGARDO PHAM MD Ot Z3A.19 19 WEEKS GESTATION OF 07/17/2017 AYAH SIMS MD Ot Z36.89 ENCOUNTER FOR OTHER SPECIFIED 07/17/2017 AYAH SIMS MD Ot Z3A.16 16 WEEKS GESTATION OF 07/19/2017 AYAH SIMS MD Ot O20.8 OTHER HEMORRHAGE IN EARLY 07/19/2017 AYAH SIMS MD Ot Z3A.08 8 WEEKS GESTATION OF 07/20/2017 AYAH SIMS MD Ot R10.11 RIGHT UPPER QUADRANT PAIN 08/30/2017 AYAH SIMS MD Ot O20.8 OTHER HEMORRHAGE IN EARLY 08/30/2017 AYAH SIMS MD Ot Z3A.08 8 WEEKS GESTATION OF 08/30/2017 EDGARDO PHAM MD Ot O46.91 ANTEPARTUM HEMORRHAGE, UNSPECIFIED, FIRS 08/30/2017 EDGARDO PHAM MD Ot Z3A.13 13 WEEKS GESTATION OF 08/30/2017 AYAH SIMS MD Ot Z36.89 ENCOUNTER FOR OTHER SPECIFIED 08/30/2017 AYAH SIMS MD Ot Z3A.16 16 WEEKS GESTATION OF 08/30/2017 AYAH SIMS MD Ot R10.11 RIGHT UPPER QUADRANT PAIN 09/21/2017 AYAH SIMS MD, Ot Z36.89 ENCOUNTER FOR OTHER SPECIFIED 09/21/2017 AYAH SIMS MD, Ot Z3A.16 16 WEEKS GESTATION OF 12/06/2017 EDGARDO PHAM MD, Ot O02.1 MISSED 12/06/2017 EDGARDO PHAM MD, Ot O41.1220 CHORIOAMNIONITIS, SECOND TRIMESTER, NOT 12/06/2017 EDGARDO PHAM MD, Ot Z3A.19 19 WEEKS GESTATION OF Procedures There is no data. Results Test Result Range TEST, SERUM (QUAL) - 04/10/17 09:03 HCG, TOTAL, QL POSITIVE See Note: CULTURE, URINE - 04/20/17 14:32 CULTURE, URINE, ROUTINE SEE NOTE NRG CULTURE, GENITAL - 05/02/17 15:10 CULTURE, GENITAL SEE NOTE NRG Urine drug screening test - 07/05/17 07:30 Urine phencyclidine detection by screening method NEGATIVE NEGATIVE Urine benzodiazepines detection by screening method POSITIVE NEGATIVE Urine cocaine detection NEGATIVE NEGATIVE Urine amphetamines detection by screening method NEGATIVE NEGATIVE Urine methamphetamine detection by screening method NEGATIVE NEGATIVE Urine cannabinoids detection by screening method POSITIVE NEGATIVE Urine opiates detection by screening method POSITIVE NEGATIVE Urine barbiturates detection NEGATIVE NEGATIVE Screening urine tricyclic antidepressants detection NEGATIVE NEGATIVE Urine methadone detection by screening method NEGATIVE NEGATIVE Urine oxycodone detection NEGATIVE NEGATIVE Urine propoxyphene detection NEGATIVE NEGATIVE Complete blood count (CBC) with automated white blood cell (WBC) differential - 07/05/17 08:15 Blood leukocytes automated count (number/volume) 13.9 10*3/uL 4.3-11.0 Blood erythrocytes automated count (number/volume) 4.36 10*6/uL 4.35-5.85 Venous blood hemoglobin measurement (mass/volume) 13.2 g/dL 11.5-16.0 Blood hematocrit (volume fraction) 39 % 35-52 Automated erythrocyte mean corpuscular volume 89 [foz_us] 80-99 Automated erythrocyte mean corpuscular hemoglobin (mass per erythrocyte) 30 pg 25-34 Automated erythrocyte mean corpuscular hemoglobin concentration measurement ( mass/volume) 34 g/dL 32-36 Automated erythrocyte distribution width ratio 13.8 % 10.0-14.5 Automated blood platelet count (count/volume) 283 10*3/uL 130-400 Automated blood platelet mean volume measurement 9.3 [foz_us] 7.4-10.4 Automated blood neutrophils/100 leukocytes 69 % 42-75 Automated blood lymphocytes/100 leukocytes 23 % 12-44 Blood monocytes/100 leukocytes 7 % 0-12 Automated blood eosinophils/100 leukocytes 1 % 0-10 Automated blood basophils/100 leukocytes 0 % 0-10 Blood neutrophils automated count (number/volume) 9.6 10*3 1.8-7.8 Blood lymphocytes automated count (number/volume) 3.2 10*3 1.0-4.0 Blood monocytes automated count (number/volume) 0.9 10*3 0.0-1.0 Automated eosinophil count 0.2 10*3/uL 0.0-0.3 Automated blood basophil count (count/volume) 0.0 10*3/uL 0.0-0.1 Blood type T Indirect antibody screen panel - 07/05/17 08:15 ABO+Rh group AP NRG Transfusion band number [id number] NRG Hemoglobin A1c - 07/05/17 08:15 Blood hemoglobin A1C measurement (mass/volume) 4.6 % 4.0- 5.6 MEAN BLOOD GLUCOSE 85 % <=126 Bacterial blood culture - 07/05/17 16:30 Bacterial blood culture NG NRG Bacterial blood culture - 07/05/17 16:35 Bacterial blood culture NG NRG Gram stain microscopy - 07/05/17 18:15 GRAM STAIN RESULT NO WBC'S OR BACTERIA OBSERVED NRG Bacteria identification in wound by culture - 07/05/17 18:15 Bacteria identification in wound by culture [id number] NRG QUANTITY OF GROWTH Scant Growth NRG Gram stain microscopy - 07/05/17 18:15 GRAM STAIN RESULT RARE GRAM POSITIVE MAYE NRG Bacteria identification in wound by culture - 07/05/17 18:15 Bacteria identification in wound by culture [id number] NRG QUANTITY OF GROWTH Scant Growth NRG Complete blood count (CBC) with automated white blood cell (WBC) differential - 07/06/17 05:05 Blood leukocytes automated count (number/volume) 12.2 10*3/uL 4.3-11.0 Blood erythrocytes automated count (number/volume) 3.98 10*6/uL 4.35-5.85 Venous blood hemoglobin measurement (mass/volume) 12.1 g/dL 11.5-16.0 Blood hematocrit (volume fraction) 35 % 35-52 Automated erythrocyte mean corpuscular volume 89 [foz_us] 80-99 Automated erythrocyte mean corpuscular hemoglobin (mass per erythrocyte) 30 pg 25-34 Automated erythrocyte mean corpuscular hemoglobin concentration measurement ( mass/volume) 34 g/dL 32-36 Automated erythrocyte distribution width ratio 13.5 % 10.0-14.5 Automated blood platelet count (count/volume) 244 10*3/uL 130-400 Automated blood platelet mean volume measurement 9.1 [foz_us] 7.4-10.4 Automated blood neutrophils/100 leukocytes 62 % 42-75 Automated blood lymphocytes/100 leukocytes 29 % 12-44 Blood monocytes/100 leukocytes 7 % 0-12 Automated blood eosinophils/100 leukocytes 2 % 0-10 Automated blood basophils/100 leukocytes 0 % 0-10 Blood neutrophils automated count (number/volume) 7.5 10*3 1.8-7.8 Blood lymphocytes automated count (number/volume) 3.6 10*3 1.0-4.0 Blood monocytes automated count (number/volume) 0.8 10*3 0.0-1.0 Automated eosinophil count 0.3 10*3/uL 0.0-0.3 Automated blood basophil count (count/volume) 0.0 10*3/uL 0.0-0.1 Comprehensive metabolic panel - 07/06/17 05:05 Serum or plasma sodium measurement (moles/volume) 138 mmol/L 135-145 Serum or plasma potassium measurement (moles/volume) 3.4 mmol/L 3.6-5.0 Serum or plasma chloride measurement (moles/volume) 109 mmol/L 98-107 Carbon dioxide 19 mmol/L 21-32 Serum or plasma anion gap determination (moles/volume) 10 mmol/L 5-14 Serum or plasma urea nitrogen measurement (mass/volume) 6 mg/dL 7-18 Serum or plasma creatinine measurement (mass/volume) 0.54 mg/dL 0.60-1.30 Serum or plasma urea nitrogen/creatinine mass ratio 11 NRG Serum or plasma creatinine measurement with calculation of estimated glomerular filtration rate > NRG Serum or plasma glucose measurement (mass/volume) 85 mg/dL 70-105 Serum or plasma calcium measurement (mass/volume) 8.3 mg/dL 8.5-10.1 Serum or plasma total bilirubin measurement (mass/volume) 0.2 mg/dL 0.1-1.0 Serum or plasma alkaline phosphatase measurement (enzymatic activity/volume) 50 U/L 40-136 Serum or plasma aspartate aminotransferase measurement (enzymatic activity/ volume) 18 U/L 5-34 Serum or plasma alanine aminotransferase measurement (enzymatic activity/volume ) 14 U/L 0-55 Serum or plasma protein measurement (mass/volume) 5.7 g/dL 6.4-8.2 Serum or plasma albumin measurement (mass/volume) 3.1 g/dL 3.2-4.5 THYROID STIMULATING HORMONE - 07/06/17 05:05 THYROID STIMULATING HORMONE 6.47 u[iU]/mL 0.35-4.94 Serum or plasma thyroxine (T4) free measurement (mass/volume) - 07/06/17 05:05 Serum or plasma thyroxine (T4) free measurement (mass/volume) 0.81 ng/dL 0.70-1.48 Cerebrospinal fluid cytomegalovirus IgG and IgM panel - 07/06/17 11:15 [id number] Negative Negative Serum cytomegalovirus IgM antibody assay (units/volume) < AU 0.0-29.9 Cerebrospinal fluid cytomegalovirus IgG antibody titer > u[iU]/mL 0.00-0.59 Interpretation of cytomegalovirus (CMV) IgG antibody assay Positive Negative LUPUS ANTICOAGULANT PROFILE - 07/06/17 11:15 Lupus anticoagulant-sensitive activated partial thromboplastin time (APTT) in platelet poor plasma 28.6 s 20.6-39.2 PT panel - platelet poor plasma by coagulation assay 12.7 s 10.5-15.7 INR in platelet poor plasma by coagulation assay 0.9 0.7 -1.3 ANTICOAG? Unknown [facility] Parvovirus B19 antibody panel (IgG, IgM) - 07/06/17 11:15 Serum Parvovirus B19 IgG antibody assay (units/volume) 6.71 % <=0.89 Serum Parvovirus B19 IgM antibody assay (units/volume) 0.14 % <=0.89 Dilute Ángel's viper venom time - 07/06/17 11:15 Dilute Ángel's viper venom time (DRVVT) screening test 0.69 % 0.00-1.20 Blood or tissue F5 gene p.R506Q detection by molecular genetics method - 11:15 Blood or tissue F5 gene p.R506Q detection by molecular genetics method Negative Negative Coagulation factor 5 activated measurement (units/volume) in platelet poor plasma by coagulation assay See Footnote NRG SUREPATH PAP RFX HPV mRNA E6/E7 - 01/24/18 00:00 CLINICAL INFORMATION: NRG LMP: NRG PREV. PAP: NRG PREV. BX: NRG SOURCE: NRG STATEMENT OF ADEQUACY: NRG INTERPRETATION/RESULT: NRG DIAL BRUSHER: NRG COMMENT NRG CULTURE, GENITAL - 01/24/18 13:47 CULTURE, GENITAL SEE NOTE NRG Encounters ACCT No. Visit Date/Time Discharge Status Pt. Type Provider Facility Loc./Unit Complaint [id number] 10/08/2013 18:53:00 10/08/2013 19:27:00 DIS Emergency CARLY LARA [facility] EMR [id number] 10/30/2017 12:00:00 10/30/2017 23:59:59 CLS Outpatient NORMAN NEELY LAC [facility] [id number] 01/24/2018 12:20:00 Document Registration [id number] 05/02/2017 14:20:00 Document Registration [id number] 04/20/2017 13:20:00 Document Registration [id number] 04/10/2017 09:20:00 Document Registration [id number] 06/18/2017 10:05:15 ACT Unknown [id number] 07/19/2017 10:05:00 07/19/2017 23:59:59 CLS Outpatient AYAH SIMS MD [facility] RAD R10.11 RIGHT UPPER QUADRANT PAIN [id number] 07/05/2017 07:12:00 07/06/2017 19:10:00 DIS Outpatient EDGARDO PHAM MD [facility] WSo INTRAUTERINE BEFORE 20 WKS GESTATION [id number] 07/04/2017 10:15:00 07/04/2017 23:59:59 CLS Outpatient AYAH SIMS MD [facility] RAD Z34.02 [id number] 05/25/2017 14:28:00 05/25/2017 23:59:59 CLS Outpatient EDGARDO PHAM MD [facility] RAD O46.90 VAGINAL BLEEDING [id number] 04/21/2017 16:06:00 04/21/2017 23:59:59 CLS Outpatient BETHANY CARTWRIGHT, AYAH Ospina [facility] RAD BLEEDING 9 WKS GESTATION [id number] 02/16/2014 21:02:00 02/16/2014 21:58:00 DIS Emergency RUKHSANA DUMONT DO [facility] ER R ARRON PARDO [id number] 10/12/2013 09:58:51 ACT Document Registration
[2018-02-13 13:20] LABS: BILIRUBIN,URINE NEGATIVE (NEGATIVE); CLARITY,URINE CLEAR; COLOR,URINE YELLOW; GLUCOSE, URINE (UA) NEGATIVE (NEGATIVE); KETONES,URINE NEGATIVE (NEGATIVE); LEUKOCYTE ESTERASE ,URINE 3+ (NEGATIVE); NITRITE,URINE NEGATIVE (NEGATIVE); PH,URINE 7 (5-9); PROTEIN,URINE NEGATIVE (NEGATIVE); UROBILINOGEN,URINE NORMAL (NORMAL)
[2018-02-13 13:28] LABS: BACTERIA,URINE FEW /HPF; RBC,URINE RARE /HPF
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
[2018-02-13] MEDS ORDERED: METR500T21 PO (14:43)
[2018-02-13] MEDS ORDERED: AZITHROMYCIN 250 MG TAB (ZITHROMAX) PO ONE (14:45)
[2018-02-13] MEDS ORDERED: LIDOCAINE PF 1% 5 ML (XYLOCAINE) AMP ONE (15:00)
[2018-02-13] MEDS ORDERED: cefTRIAXone 1 GM/10 ML for IV (ROCEPHIN) ONE (15:00)
[2018-02-13 15:30] VITALS: BP 132/93
[2018-02-14] MEDS ORDERED: cefTRIAXone 1,000 MG/2.86 ml vial (IM ONLY) IM SCH (09:00)
== END 2018-02-13 15:29 | disposition home or self-care (01) ==
LOC: EDUNIT# 12:42 → ER 12:43
DX: A64 Unspecified sexually transmitted disease (principal); F90.9 Attention-deficit hyperactivity disorder, unspecified type; F41.9 Anxiety disorder, unspecified; F31.9 Bipolar disorder, unspecified; F43.10 Post-traumatic stress disorder, unspecified; Z88.8 Allergy status to other drugs, medicaments and biological substances; Z88.0 Allergy status to penicillin; Z87.891 Personal history of nicotine dependence; Z87.19 Personal history of other diseases of the digestive system
CPT/HCPCS: 36415; 81000; 84703; 87070; 87088; 87210; 87491; 87591; 99284